=== PATIENT | female | born 1940 | race Caucasian/White ===

== ENCOUNTER 2016-06-13 16:23 | Inpatient (IN) | payer OTHER ==
[~2016-06-13] VITALS: Ht 144.8 cm; Wt 63.5 kg
[~2016-06-13 16:23] MED LIST: ALENDRONATE SOD70 M2 PO; ALENDRONATE SOD70 MG PO; CALCIUM + D 6001 TAB PO; CALCIUM 600600 M1 PO; CALTRATE 600 +1 EACH PO; CENTRUM COMPLE1 EACH PO; CHOLESTYRAMINE P4 GM PO; CHOLESTYRAMINE1 POW PO; CLOBETASOL PROP15 GM TOP; COUMADIN 2.5 M2.5 MG PO; ECONAZOLE NITRA15 GM TOP; ESCITALOPRAM OX10 MG PO; FIBERCON625 M1 PO; FIBERCON625 MG PO; HEP-FORTE1 CAP PO; LEVOTHYROXIN0.025 MG PO; LEVOTHYROXINE0.15 MG PO; LEVOTHYROXINE150 MCG PO; LEXAPRO 10MG10 MG PO; OMEPRAZOLE40 M1 PO; PERCOCET 325 MG1 TA2 PO; PRILOSEC 20MG C20 MG PO; PRILOSEC20 MG PO; SARNA TOP; SIMVASTATIN20 MG PO; SPECTAZOLE0.1 %/15 G TOP; VITAMIN D1000 IU PO; ZYRTEC ALLERGY10 MG PO
--- NOTE | 2016-06-13 16:43 | NUR ---
TRIAGE: PT TO ER WITH DAUGHTER, SENT BY DR YOUNG S/P FALL YESTERDAY. PER DR YOUNG PATIENT CAN'T BE MANAGED AT HOME ANY LONGER SHE IS NON-AMBULATORY. DAUGHTER REPORTS PATIENT FELL YESTERDAY WHEN WALKING OUT OF FRONT DOOR, LOST HER BALANCE AND FELL BACKWARDS. HAS HEMATOMA ON R BUTTOCK (PER DAUGHTER). PT HAS SLING TO RT ARM R/T FALL 6 WEEKS AGO.
--- NOTE | 2016-06-13 16:43 | NUR ---
Informed waiting has been performed.
--- NOTE | 2016-06-13 17:20 | ED MVC/FALL/TRAUMA COMPLAINT ---
History of Present Illness General Chief Complaint: Fall Stated Complaint: FALL YESTERDAY,HEMATOMA BUTTOCKS,WEAKNESS Source: patient, family Exam Limitations: no limitations Allergies Coded Allergies: amoxicillin (Mild, RASH 06/13/16) clarithromycin (From BIAXIN) (Mild, RASH 06/13/16) urokinase (Mild, RASH 06/13/16) Reconcile Medications Alendronate Sodium 70 MG TABLET 1 TAB PO QMON OP (Reported) in the morning, at least 30 minutes before the first food, beverage, or medication of the day Calcium Carbonate/Vitamin D3 (Caltrate 600 + D Tablet) 600 MG-800 TABLET 1 TAB PO DAILY SUPPLEMENT (Reported) Calcium Polycarbophil (Fibercon) 625 MG TABLET 625 MG PO D FIBER SUPPLEMENT ( Reported) Cholestyramine (With Sugar) (Cholestyramine Packet) 4 GRAM POWD.PACK 1 Scoopful PO BID LIVER-BILE DUCT (Reported) Clobetasol Propionate 0.05 % CREAM..G. 1 JACQUI TOP D ECZEMA (Reported) apply to affected area(s) Econazole (Econazole Nitrate) 1 % CREAM..G. 1 JACQUI TOP BID ECZEMA (Reported) apply to affected area(s) Escitalopram Oxalate 10 MG TABLET 1 TAB PO DAILY DEPRESSION (Reported) Levothyroxine Sodium 150 MCG TABLET 1 TAB PO DAILY THYROID (Reported) Multivitamin/Iron/Folic Acid (Centrum Complete Multivit Tab) 18 MG IRON-400 MCG TABLET 1 TAB PO D SUPPLEMEMT (Reported) Omeprazole 40 MG CAPSULE. 1 CAP PO DAILY GERD (Reported) Oxycodone HCl 5 MG TABLET 1 TAB PO 4XDAILY PRN PAIN (Reported) Simvastatin (Simvastatin*) 20 MG TABLET 1 TAB PO QPM HLD (Reported) Triage Note: TRIAGE: PT TO ER WITH DAUGHTER, SENT BY DR YOUNG S/P FALL YESTERDAY. PER DR YOUNG PATIENT CAN'T BE MANAGED AT HOME ANY LONGER SHE IS NON-AMBULATORY. DAUGHTER REPORTS PATIENT FELL YESTERDAY WHEN WALKING OUT OF FRONT DOOR, LOST HER BALANCE AND FELL BACKWARDS. HAS HEMATOMA ON R BUTTOCK (PER DAUGHTER). PT HAS SLING TO RT ARM R/T FALL 6 WEEKS AGO. Triage Nurses Notes Reviewed? yes HPI: 76 yo female, sp fall yesterday, mechanical fall due to weakness. she was seen at [facility] yesterday due to the fall. CT scan of "whole body" was negative per daughter except for hematoma. states she is weak and falls. had another fall this am getting out of the bed after getting dizzy when standing. hx of syncope in the past, has healing fx of the elbow, syncoped 2 week ago after taking sling off for evaluation of the arm by PT. appetite is poor. no fever, no flu like illness. seen by PCP and was sent to the ER for further evaluation and possible admission as pt is unable to care for herself. she lives in the same house as her daughter. no nv, no cp, no palpitations. (MIC DANGELO) Vital Signs & Intake/Output Vital Signs & Intake/Output Vital Signs Date Time Temp Pulse Resp B/P Pulse O2 O2 Flow FiO2 Ox Delivery Rate 06/17 0835 98.0 73 20 152/80 97 Room Air 06/16 2200 98.0 72 20 120/80 95 Room Air 06/16 1555 97.4 73 16 138/64 97 Room Air ED Intake and Output 06/17 0000 06/16 1200 Intake Total 480 1575 Output Total 600 Balance 480 975 Intake, IV 1375 Intake, Oral 480 200 Number 1 Bowel Movements Output, Urine 600 Past History Travel History Traveled to [place] past 21 day No Medical History Any Pertinent Medical History? see below for history Neurological: NONE EENT: NONE Cardiovascular: hyperlipidemia Respiratory: asthma, pneumonia Gastrointestinal: GERD Hepatic: NONE Renal: NONE Musculoskeletal: osteoporosis Psychiatric: depression Endocrine: hypothyroidism Blood Disorders: NONE Cancer(s): NONE WELFARE ADVISER/Reproductive: NONE History of MRSA: No History of VRE: Yes History of CDIFF: No Surgical History Surgical History: cholecystectomy, knee replacement (B) Psychosocial History Who do you live with Spouse Services at Home None What is your primary language Spanish Tobacco Use: Never used ETOH Use: denies use Illicit Drug Use: denies illicit drug use Family History Hx Contributory? No (MIC DANGELO) Review of Systems Review of Systems Constitutional: Reports: see HPI. Eyes: Reports: no symptoms. Ears, Nose, Throat, Mouth: Reports: no symptoms. Respiratory: Reports: no symptoms. Cardiovascular: Reports: no symptoms. Gastrointestinal/Abdominal: Reports: no symptoms. Genitourinary: Reports: no symptoms. Musculoskeletal: Reports: see HPI. Skin: Reports: no symptoms. Neurological/Psychological: Reports: see HPI. All Other Systems: Reviewed and Negative (MIC DANGELO) Physical Exam Physical Exam General Appearance: well developed/nourished Comments: Well-developed well-nourished person in no acute distress HEENT: Normal EENT exam, extraocular motion intact, no nystagmus. Pupils equally round and reactive to light and accommodation. Nose is atraumatic. Pharynx normal. No swelling or edema. Neck: Supple, no lymphadenopathy, normal range of motion without pain or tenderness Back: Well-healed midline surgical scar, moderate hematoma and swelling noted to the right lateral posterior pelvic region with tenderness in the area., no CVA tenderness. Cardiovascular: Regular rate and rhythms no murmurs rubs or gallops, normal JVP Respiratory: Chest nontender. No respiratory distress.breath sounds clear to auscultation bilaterally Abdomen: Soft, nontender nondistended, no appreciable organomegaly. Normal bowel sounds. No ascites Extremity: No edema, no calf tenderness to palpation, normal and equal pulses. Well-healed surgical scars from total knee arthroplasty without any signs of trauma or injury range of motion is full bilateral hips knees and ankles, neurovascularly intact Neuro: Alert oriented x3, motor sensory normal, cranial nerves II through XII grossly intact. Skin: No appreciable rash on exposed skin, skin is warm and dry. Psych: Mood and affect is normal, memory and judgment is normal. Core Measures ACS in differential dx? Yes Severe Sepsis Present: No BC x2: Yes Lactic Acid x2: Yes IV ABX Broad Spectrum: Yes NS/LR Started: Yes Septic Shock Present: No (MIC DANGELO) Progress Differential Diagnosis: aoritic dissection, abd injury, C/T/L spine injury, ext injury, ICH, pelvis injury, pnemothorax, spinal cord injury, hepatitis, sepsis, hepatic ischemia, Tylenol overdose, medication reaction Diagnostic Imaging: Viewed by Me: Radiology Read, CT Scan. Discussed w/RAD: Radiology Read, CT Scan. Radiology Impression: PATIENT: BOO OJINER PRESENT AGE: 76 PATIENT ACCOUNT NO: [id number] : 41 LOCATION: [facility] ORDERING PHYSICIAN: MIC NUNEZ SERVICE DATE: 06/13/16 EXAM TYPE: CAT - CT ABD & PELVIS W IV CONTRAST EXAMINATION: CT ABDOMEN AND PELVIS WITH CONTRAST CLINICAL INFORMATION: Elevated LFTs. Amylase. Lipase. History of cholecystectomy. Concern for cholangitis or a mass COMPARISON: CT abdomen pelvis 02/06/2007. Images and report were not available for review. TECHNIQUE: Multidetector volumetric imaging was performed of the abdomen and pelvis after the IV administration of 95 mL of Optiray 320 intravenous contrast. Sagittal and coronal reformatted images were obtained on the technologist's workstation. DLP: 338.64 mGy-cm. FINDINGS: LUNG BASES: The visualized lung bases are unremarkable. LIVER, GALLBLADDER, AND BILIARY TREE: There is a tiny hypodensity in the inferior right lobe liver statistically likely small hepatic cyst. No suspicious liver lesion. No intrahepatic bile duct dilatation. Gallbladder is absent. No bile duct dilatation. PANCREAS: Unremarkable. SPLEEN: Unremarkable. ADRENAL GLANDS: Unremarkable. KIDNEYS AND URETERS: There is a UPJ obstruction of the left kidney. Marked dilatation of the calyces and the renal pelvis with an extra renal pelvis. No dilatation of the ureter. Right kidney and ureter are normal. BLADDER: Opacified with contrast. No filling defect. GASTROINTESTINAL TRACT: There is a small mesenteric twist of approximately 180 degrees the right anterior mesentery, axial image 35 (2). This does not cause obstruction of the bowel. There is no dilated bowel loops. No bowel wall thickening or edema. There is marked diverticulosis of the sigmoid colon but no evidence of diverticulitis. The appendix is not seen. No inflammation of mesentery. There is a small hiatal hernia present. ABDOMINAL WALL: No significant hernia is appreciated. LYMPH NODES: Normal. VASCULAR: Unremarkable. PELVIC VISCERA: Uterus is anteverted. No adnexal abnormality. OSSEOUS STRUCTURES: Transpedicular screws fusion L4-L5. Multilevel degenerative change of the spine with disc height narrowing and endplate spurs and degenerative facet joint arthrosis. Orthopedic pins in the left femur IMPRESSION: 1. No acute change of the abdomen or pelvis. Gallbladder absent. No bile duct dilatation. Pancreas is unremarkable. 2. Left UPJ obstruction. DICTATED BY: JULIANE PEREZ MD DATE/TIME DICTATED:06/13/162029 POLICE CAPTAIN PRECINCT:FRANCES DATE/TIME TRANSCRIBED:06/13/16 CXR Impression: no acute abnormality Comments: PT TOO WEAK TO STAND, COULD NOT PERFORM ORTHOSTATICS. Patient's blood pressure noted to be 85 systolic, she is given IV fluids, septic workup started. 06/13/2016 6:15:41 PM reevaluation patient's complaining of bilateral knee pain after being moved from the wheelchair into the bed, she cannot have this pain upon initial presentation. Reevaluation of the lower extremities reveals well- healed midline scars from total knee replacements bilaterally without any swelling or erythema, warmth and tenderness on exam and no effusion no ecchymosis no signs of trauma, range of motion is full in the past. She will be given 15 mg of Toradol IV and 650 mg of Tylenol. Blood pressure has improved significantly after 1 L of IV fluid, we'll continue fluids Laboratory values show significant elevated LFTs, amylase lipase was added on, hepatitis panel was added on, INR was added on, also noted to have white count of 12,000, suspect cholangitis however on reevaluation patient has no abdominal tenderness at all, no abdominal pain and has had a cholecystectomy in the past. Will CT scan her abdomen and pelvis, possible biliary duct obstruction from mass or infectious cause. Treated with Rocephin and Flagyl IV for possible intra- abdominal infection. She continues to have bilateral knee pain which only started after she was moved into the bed and did not have pain while she was in a wheelchair upon my first evaluation, she was given 3 mg of IV morphine. CT scan is unremarkable, discussed with Dr. King, recommend continuing antibiotics and he will consult in the morning if medicine wishes, recommend admission, IV fluids, follow blood cultures and results of hepatitis panel. (MIC DANGELO) Plan of Care: Orders Procedure Date/time Status PROTHROMBIN TIME 06/18 0600 Active HEPATIC FUNCTION PANEL 06/18 06 Active BASIC ELECTROLYTES PLUS BUN&CR 06/18 0600 Active Heart Healthy Diet 06/17 L Active PROTHROMBIN TIME 06/17 0600 Complete HEPATIC FUNCTION PANEL 06/17 0600 Complete BASIC ELECTROLYTES PLUS BUN&CR 06/17 0600 Complete RAPID VIRAL INFLUENZA A 06/16 1537 Complete Current Medications Sig/Isela Start time Last Medication Dose Stop Time Status Admin Alendronate Sodium 70 MG QMON 06/19 0700 AC (Fosamax) Guaifenesin 10 ML Q6P PRN 06/17 1400 AC (Robitussin) Laboratory Tests 06/17/16 0655: Anion Gap 7, Estimated GFR > 60, BUN/Creatinine Ratio 26.0 H, Total Bilirubin 0.6, Direct Bilirubin 0.4, AST 19, ALT 202 H, Alkaline Phosphatase 113, Total Protein 4.1 L, Albumin 1.9 L, PT 12.3, INR 1.17 Departure Departure Disposition: STILL A PATIENT Condition: Stable Clinical Impression Primary Impression: Liver failure Secondary Impressions: Generalized weakness Hypotension Knee pain Leukocytosis Qualifiers: Leukocytosis type: unspecified Qualified Code: D72.829 - Elevated white blood cell count, unspecified Obstruction of left ureteropelvic junction (UPJ) Pancreatitis Qualifiers: Chronicity: acute Pancreatitis type: other Acute pancreatitis complication: unspecified Qualified Code: K85.80 - Other acute pancreatitis without necrosis or infection Transaminitis Referrals: PARTH YOUNG MD (PCP/Family) Departure Forms: Customer Survey General Discharge Information Admission Note Spoke With: ANGEL ZULUAGA MD Documentation of Exam: Documentation of any treatments & extenuating circumstances including Concerns Regarding Discharge (functional status, medication knowledge or non-compliance, living conditions, etc.) that warrant an admission rather than observation: Significantly elevated LFTs of unknown cause, hypotension, possible sepsis, requires GI consultation IV fluids IV antibiotics and monitor blood pressure and blood cultures (CANDICE NUNEZ,MIC) PA/RADAR MECHANIC Co-Sign Statement Statement: ED Attending supervision documentation- [X] I saw and evaluated the patient. I have also reviewed all the pertinent lab results and diagnostic results. I agree with the findings and the plan of care as documented in the PA's/RADAR MECHANIC's documentation. [] I have reviewed the ED Record and agree with the PA's/RADAR MECHANIC's documentation. [] Additions or exceptions (if any) to the PAs/RADAR MECHANIC's note and plan are summarized below: [] (NICOLASA REAGAN,JAMIE Fox)
--- NOTE | 2016-06-13 18:05 | NUR ---
IV ESTABLISHED AND NS RUNNING. LABS DRAWN AND SENT (BLUE, SST X2, LAV, SNOW, PINK, BLOOD CULTURES).
[2016-06-13 18:17] LABS: ABSOLUTE BASOPHIL COUNT 0 /CUMM (0.0-0.2); ABSOLUTE EOSINOPHIL COUNT 0.1 /CUMM (0.0-0.7); ABSOLUTE LYMPH COUNT 0.1 /CUMM (1.2-3.4); ABSOLUTE MONOCYTE COUNT 0.2 /CUMM (0.10-0.60); BASOPHIL % 0 % (0.0-2.0); EOSINOPHIL % 0.8 % (0-5); HEMATOCRIT 37.6 % (37-47); MEAN CORPUSCULAR HGB 28.2 PG (27.0-31.0); MEAN CORPUSCULAR HGB CONC 32.9 G/DL (33.0-37.0); MEAN CORPUSCULAR VOLUME 85.7 FL (81.0-99.0); PLATELET COUNT 207 /CUMM (130-400); RBC DISTRIBUTION WIDTH 15.2 % (11.5-14.5); RED BLOOD CELL CT 4.39 /CUMM (4.20-5.40); WHITE BLOOD CELL COUNT 12.4 /CUMM (4.8-10.8)
--- NOTE | 2016-06-13 18:22 | RADIOLOGY REPORT ---
EXAMINATION: XR PORTABLE CHEST CLINICAL INFORMATION: Sepsis. Weakness. COMPARISON: Chest x-ray 11/15/2015 TECHNIQUE: Portable view of the chest was obtained. 6:03 PM FINDINGS: Hyperinflation of lungs. No acute infiltrate. No pulmonary vascular congestion or pleural effusion. Cardiac and mediastinal contours are normal.. IMPRESSION: No acute abnormality of the chest.
--- NOTE | 2016-06-13 18:45 | NUR ---
MEDICATED WITH TYLENOL AND TORADOL 15MG PER eMAR. ICE PACKS APPLIED FOR COMFORT
[2016-06-13 18:51] LABS: GRANULOCYTE % 96.7 % (42.2-75.2)
[2016-06-13] MEDS ORDERED: OXYCODONE HCL5 M1 PO (18:55)
--- NOTE | 2016-06-13 19:16 | NUR ---
ENRIQUE HARVEY AT BEDSIDE TO DISCUSS PLAN. MEDICATED WITH ROCEPHIN PER e[facility] AND SECOND NS IVF BOLUS RUNNING. BP IMPROVED. WILL HAVE CT SCAN. PT REPORTS HAVING GALLBLADDER REMOVED
--- NOTE | 2016-06-13 20:37 | NUR ---
AWAITING CT RESULTS FOR PLAN OF CARE. CONTINUED PAIN TO BILAT KNEES AND R SHOULDER DESPITE REPOSITIONING. MEDICATED WITH MORPHINE PER [facility]. STATES SHE TOOK OXYCODONE TABLET RX EARLY THIS AM. PRICE CONT TO RUN PER e[facility]
[2016-06-13 20:39] LABS: PT 12.9 SEC (9.4-12.5); PTT 29 SEC (25-37)
--- NOTE | 2016-06-13 20:43 | CT SCAN REPORT ---
EXAMINATION: CT ABDOMEN AND PELVIS WITH CONTRAST CLINICAL INFORMATION: Elevated LFTs. Amylase. Lipase. History of cholecystectomy. Concern for cholangitis or a mass COMPARISON: CT abdomen pelvis 02/06/2007. Images and report were not available for review. TECHNIQUE: Multidetector volumetric imaging was performed of the abdomen and pelvis after the IV administration of 95 mL of Optiray 320 intravenous contrast. Sagittal and coronal reformatted images were obtained on the technologist's workstation. DLP: 338.64 mGy-cm. FINDINGS: LUNG BASES: The visualized lung bases are unremarkable. LIVER, GALLBLADDER, AND BILIARY TREE: There is a tiny hypodensity in the inferior right lobe liver statistically likely small hepatic cyst. No suspicious liver lesion. No intrahepatic bile duct dilatation. Gallbladder is absent. No bile duct dilatation. PANCREAS: Unremarkable. SPLEEN: Unremarkable. ADRENAL GLANDS: Unremarkable. KIDNEYS AND URETERS: There is a UPJ obstruction of the left kidney. Marked dilatation of the calyces and the renal pelvis with an extra renal pelvis. No dilatation of the ureter. Right kidney and ureter are normal. BLADDER: Opacified with contrast. No filling defect. GASTROINTESTINAL TRACT: There is a small mesenteric twist of approximately 180 degrees the right anterior mesentery, axial image 35 (2). This does not cause obstruction of the bowel. There is no dilated bowel loops. No bowel wall thickening or edema. There is marked diverticulosis of the sigmoid colon but no evidence of diverticulitis. The appendix is not seen. No inflammation of mesentery. There is a small hiatal hernia present. ABDOMINAL WALL: No significant hernia is appreciated. LYMPH NODES: Normal. VASCULAR: Unremarkable. PELVIC VISCERA: Uterus is anteverted. No adnexal abnormality. OSSEOUS STRUCTURES: Transpedicular screws fusion L4-L5. Multilevel degenerative change of the spine with disc height narrowing and endplate spurs and degenerative facet joint arthrosis. Orthopedic pins in the left femur IMPRESSION: 1. No acute change of the abdomen or pelvis. Gallbladder absent. No bile duct dilatation. Pancreas is unremarkable. 2. Left UPJ obstruction.
--- NOTE | 2016-06-13 22:00 | NUR ---
PT ON CONTACT PRECAUTIONS FOR VRE IN 2007 AND CDIFF IN 2005
--- NOTE | 2016-06-13 22:02 | NUR ---
PT REPORTS MUCH RELIEF FROM REPOSITIONING INTO WHEELCHAIR. MINIMAL RELIEF WITH ADMINISTRATION OF MORPHINE
--- NOTE | 2016-06-13 22:22 | History & Physical ---
STEPH BEASLEY MD 06/13/162: General Information and HPI MD Statement: I have seen and personally examined BOO JOINER and documented this H&P. The patient is a 76 year old F who presented with a patient stated chief complaint of [recurrent falls]. Source of Information: patient, family Exam Limitations: no limitations History of Present Illness: 76-year-old female with PMH of osteoporosis, HLD, hypothyroidism, depression, presented for referral by her PCP, Dr. Young, for evaluation of recurrent fall and possible STR placement. She was in her normal state of health until 6 weeks ago when she fell and injured her right elbow. It was splinted and she has been following up with Dr. Aguirre. The splint was removed 2 weeks ago by the visiting nurse, and the pt had a syncopal episode that lasted 5 seconds. She was evaluated at [place] ED at that time. Her right arm currently still in a sling. Over the past few days, she has had more difficulty walking due to leg pain and stiffness. Yesterday, on her way out of the house, she lost her balance and fell on backwards on the step, for which she was evaluated at [facility] because [place] was on diversion. The only significant finding was hematoma of the right buttock. She had a burning sensation, lump, and bruise on the area. This morning, her legs were feeling weak and stiff when she tried to get out of bed onto the commote, and she fell again. She attributes the fall due to bilateral knee pain (has had bilateral knee surgeries, and leg stiffness). She went to see her PCP, Dr. Young, and was then brought to the ED for possible STR placement. Of note, prior to the fall 6 weeks ago, she ambulates with a cane. Because she has been feeling unsteady since the right elbow injury, she now mainly ambulates with a wheelchair. In the ED, she was noted to be hypotensive at 84/51, for which her BP responded well to 2 L of NS. Her labs were found to be abnormal in the ED including AST 1649, ALT 1777, Alk phos 266, amylase 124, lipase 664. Pt has been feeling thirsty today, and has had poor PO intake since yesterday due to the doctor appointments/hospital visits. Pt had cholecystectomy in 2006. She denies abdominal pain, nausea, vomiting, diarrhea, or constipation. GI was consulted by the ED and recommended further evaluation with MRCP. On ROS, she reports feeling fatigued. She received her flu vaccine but not her PNA vaccine. She reports intermittent numbness on the right side of her neck.She denies fever, chills, nasal congestion, sore throat, chest pain, palpitations, shortness of breath, cough. She does have chronic bilateral leg swelling due to venous insufficiency. Denies hx of congestive heart failure. She lives at home with her , and 2 dogs. Her daughter lives downstairs. Denies sick contacts or recent travels. She reports right shoulder pain, but it is not acute , it has been there since she injured her right elbow. She denies new meds, other than ibuprofen and oxycodone over the last few weeks. Denies excessive alcohol use. Allergies/Medications Allergies: Coded Allergies: amoxicillin (Mild, RASH 06/13/16) clarithromycin (From BIAXIN) (Mild, RASH 06/13/16) urokinase (Mild, RASH 06/13/16) Home Med list Alendronate Sodium 70 MG TABLET 1 TAB PO QMON OP (Reported) in the morning, at least 30 minutes before the first food, beverage, or medication of the day Calcium Carbonate/Vitamin D3 (Caltrate 600 + D Tablet) 600 MG-800 TABLET 1 TAB PO DAILY SUPPLEMENT (Reported) Calcium Polycarbophil (Fibercon) 625 MG TABLET 625 MG PO D FIBER SUPPLEMENT ( Reported) Cholestyramine (With Sugar) (Cholestyramine Packet) 4 GRAM POWD.PACK 1 Scoopful PO BID LIVER-BILE DUCT (Reported) Clobetasol Propionate 0.05 % CREAM..G. 1 JACQUI TOP D ECZEMA (Reported) apply to affected area(s) Econazole (Econazole Nitrate) 1 % CREAM..G. 1 JACQUI TOP BID ECZEMA (Reported) apply to affected area(s) Escitalopram Oxalate 10 MG TABLET 1 TAB PO DAILY DEPRESSION (Reported) Levothyroxine Sodium 150 MCG TABLET 1 TAB PO DAILY THYROID (Reported) Multivitamin/Iron/Folic Acid (Centrum Complete Multivit Tab) 18 MG IRON-400 MCG TABLET 1 TAB PO D SUPPLEMEMT (Reported) Omeprazole 40 MG CAPSULE.DR 1 CAP PO DAILY GERD (Reported) Oxycodone HCl 5 MG TABLET 1 TAB PO 4XDAILY PRN PAIN (Reported) Simvastatin (Simvastatin*) 20 MG TABLET 1 TAB PO QPM HLD (Reported) Past History Travel History Traveled to [place] past 21 day No Medical History Neurological: NONE EENT: NONE Cardiovascular: hyperlipidemia Respiratory: asthma, pneumonia Gastrointestinal: GERD Hepatic: NONE Renal: NONE Musculoskeletal: osteoporosis Psychiatric: depression Endocrine: hypothyroidism Blood Disorders: NONE Cancer(s): NONE CASE HARDENER/Reproductive: NONE History of MRSA: No History of VRE: Yes Active VRE Infection: No History of CDIFF: Yes Active CDIFF Infection: No Isolation History: Special Contact (Enteric) Surgical History Surgical History: cholecystectomy, knee replacement (B) Past Family/Social History Psychosocial History Where do you live? Home Who Do You Live With? spouse Services at Home: Nursing, Physical Therapy Primary Language: Japanese Smoking Status: Never Smoked ETOH Use: denies use Illicit Drug Use: denies illicit drug use Functional Ability Ambulation: wheelchair Review of Systems Review of Systems Constitutional: Reports: malaise. Denies: chills, fever. EENTM: Denies: visual changes. Cardiovascular: Reports: peripheral edema. Denies: chest pain, orthopena, palpitations. Respiratory: Denies: cough, orthopnea, short of breath. GI: Denies: abdominal pain, bloating, constipation, diarrhea, nausea, bloody stool, changes in stool, vomiting. Genitourinary: Denies: discharge, dysuria. Musculoskeletal: Denies: back pain. Exam & Diagnostic Data Last 24 Hrs of Vital Signs/I&O Vital Signs Date Time Temp Pulse Resp B/P Pulse O2 O2 Flow FiO2 Ox Delivery Rate 06/13 2034 98.0 101 16 125/58 95 Room Air 06/13 1908 Room Air 06/13 1908 100 16 116/58 97 Room Air 06/13 1832 98.2 06/13 1639 98.2 100 20 84/51 94 Room Air Physical Exam General Appearance Alert, Oriented X3, Cooperative, No Acute Distress, sitting comfortably on the wheelchair , hard of hearing Skin No Rashes, No Breakdown, bruise on her right butt not evaluated HEENT Atraumatic, PERRLA, EOMI, dry mucous membranes Neck No JVD, +2 Carotid Pulse wo Bruit Lymphatic Axillary nl, Cervical nl Cardiovascular Regular Rate, Normal S1, Normal S2, No Murmurs, Gallops, Rubs Lungs Clear to Auscultation, Normal Air Movement Abdomen Normal Bowel Sounds, Soft, No Tenderness Neurological Normal Speech, strength 3/5 bilateral lower extremities. pain on both knees with passing hip flexion. Extremities Normal Pulses, bilateral edema, non pitting Vascular Normal Pulses, Pulses Symmetrical Last 24 Hrs of Labs/Juan: Laboratory Tests 06/13/16 1800: Anion Gap 12, Estimated GFR > 60, BUN/Creatinine Ratio 32.2 H, Glucose 122 H, Lactic Acid 1.6, Calcium 9.4, Magnesium 1.7, Total Bilirubin 1.8 H, Direct Bilirubin 0.7 H, GGT 147 H, AST 1649 H, ALT 1777 H, Alkaline Phosphatase 266 H, Creatine Kinase 400 H, Troponin I < 0.01, Total Protein 6.5, Albumin 3.6, Globulin 2.9, Albumin/Globulin Ratio 1.2, Amylase 124 H, Lipase 664 H, Vitamin B12 Pending, 25-OH Vitamin D Total Pending, TSH Pending, Free T4 Pending, PT 12.9 H, INR 1.23 H, APTT 29, CBC w Diff Pending, RBC 4.39, MCV 85.7, MCH 28.2, RDW 15.2 H, MPV 9.0, Gran % 96.7 H, Lymphocytes % 1.1 L, Monocytes % 1.4 L, Eosinophils % 0.8, Basophils % 0 L, Absolute Granulocytes 12.0 H, Absolute Lymphocytes 0.1 L, Absolute Monocytes 0.2, Absolute Eosinophils 0.1, Absolute Basophils 0, PUBS MCHC 32.9 L, Hepatitis A IgM Ab Pending, Hep Bs Antigen Pending, Hep B Core IgM Ab Conf Pending, Hepatitis C Antibody Pending, Acetaminophen < 10.0 L Microbiology 06/13 1845 BLOOD: Blood Culture - RECD 06/13 1800 BLOOD: Blood Culture - RECD 06/13 1724 URINE ROUT: Urine Culture - ORD Diagnostic Data EKG Results EKG SR rate 98 CXR Results No acute abnormality of the chest. Other Results CT abd and pelvis with contrast 1. No acute change of the abdomen or pelvis. Gallbladder absent. No bile duct dilatation. Pancreas is unremarkable. 2. Left UPJ obstruction. Assessment/Plan Assessment: 76-year-old female with PMH of osteoporosis, HLD, hypothyroidism, depression, presented for referral by her PCP, Dr. Young, for evaluation of recurrent fall and possible STR placement. In the ED, she was noted to be hypotensive at 84/51, for which her BP responded well to 2 L of NS. Her labs were found to be abnormal in the ED including AST 1649, ALT 1777, Alk phos 266, GGT 147, amylase 124, lipase 664. Although she denies any symptoms, and she had cholecystectomy [place] [address] was negative for stones, the hypotension is worrisome for impending acute cholangitis. She is admitted to and the following problems addressed: # Transaminitis, elevated lipase and amylase, hypotension, worrisome for impending acute cholangitis. Most likely cause is shock liver from hypotension on ED presentation. - Given 1 time ceftriaxone and flagyl in the ED - 2 L NS given in the ED - LA 1.6 * MRCP tomorrow * Follow BC X 2, UC * Continue ceftriaxone and flagyl * Continue IVF * NPO for MRCP * Dont give tylenol for pain * Closely monitor her anion gap for sepsis * Hold statin # Left UPJ obstruction on CT scan * Urology consult * Follow UA and UC * Follow renal US # Dehydration - BUN 29H, cr 0.9 * Continue IVF # Recurrent falls * PT evaluation * Follow Vit b12, vit d * Continue ashwin/vit D * Continue multivitamin/iron/folate * Continue oxycodone 5 mg q6p * HOLD ibuprofen for pain * No tylenol for pain # Hypothyroidism * Follow TSH, FT4 * Continue levothyroxine 150 mcg # HLD * Continue cholestyramine 4 gm bid * hold statin # Depression * Continue escitalopram 10 mg # Osteoporosis * Continue alendronate 70 q mon # Skin * Continue clobetasol for vaginal * Continue econazole for under breasts and inner thighs # GI * Continue omeprazole 40 daily Diet: NPO DVT ppx: mech. no pharm in case pt has to go for procedure FULL CODE As Ranked By This Provider Problem List: 1. Transaminitis 2. Pancreatitis Qualifiers Chronicity: acute Pancreatitis type: other Acute pancreatitis complication: unspecified Qualified Code: K85.80 - Other acute pancreatitis without necrosis or infection 3. Recurrent falls Core Measures/Miscellaneous Acute Coronary Syndrome ACS Diagnosis: No Cerebrovascular Accident CVA/TIA Diagnosis: No Congestive Heart Failure CHF Diagnosis: No Venous Thromboembolism VTE Risk Factors: Acute medical illness, Age > 40 VTE Prophylaxis Ordered Inpt: Mechanical (ALPS/TEDS) No Mech VTE prophylaxis d/t: No contraindications No VTE Pharm Prophylaxis d/t: Surgical contraindication VTE Diagnosis: No VTE Type: NONE VTE Confirmed by (Test): NONE Severe Sepsis Severe Sepsis Present: No Septic Shock Septic Shock Present: No Miscellaneous Documentation Attending Case Discussed With: AZN REAGAN,ANGEL Primary Care Physician: PARTH YOUNG MD Patient sees these Specialists Dr Gonzales endocrinology Level of Patient Care: General Medicine HELDER MARTINEZ 06/14/16 0006: Resident Review Statement Resident Statement: examined this patient, discussed with intern retail, agreed with intern retail, reviewed EMR data (avail), reviewed images, amended to note Other Findings: This is 76-year-old female with past medical history of hyperlipidemia, GERD, hypothyroidism, depression, osteoporosis. Patient presented to the emergency department after being referred by her PCP due to multiple falls. Patient stated that the first Fall 6 weeks ago when she fell and injured her right elbow , It was splinted and she has been following up orthopedic. She states the splint was removed around 2 weeks ago. Yesterday she had episode of syncopal episode that last 5-10 second patient was referred [facility] due to right buttock hematoma. CT scan was done and did not show any acute pathological process. 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 Patient patient reported decreased urine output, feeling urgency to go to the bathroom but there is no urine coming out comparing with the feeling. She denies fever, chills, nasal congestion, sore throat, chest pain, palpitations, shortness of breath, cough, abdominal pain, nausea, vomiting, diarrhea. Problem list: -Transaminitis with elevated lipase and Amylase that could be due to gallstone versus cholangitis. -Left UPJ obstruction, that need further evaluation to rule out any internal/ external renal causes. -Multiple mechanical falls -Generalized weakness, difficulty ambulation -Leukocytosis, Abnormal urine analysis. Plan: -Admit patient to general medicine floor -Vitals every shift, I&Os -Continue IV ceftriaxone and IV Flagyl -Keep the patient nothing by mouth for MRCP -Gastroenterology consultation -Start the patient on normal saline IV fluid hydration @ 125/h -Repeat hepatic functional panel, INR in the morning -Check TSH, free T4, vitamin B12, hepatitis panel, GGT. -Follow urine culture, blood culture -Renal ultrasound, urology consultation -Hold home medication of statin, avoid Tylenol, NSAIDs -Physical therapy consultation for possible placement -Pain pathway -DVT prophylaxis: Alps -Full code ZAN REAGAN, [facility] 06/14/16 0037: Attending MD Review Statement Attending Statement Attending MD Statement: examined this patient, discuss w/resident/PA/STAFF PSYCHOLOGIST, agreed w/resident/PA/STAFF PSYCHOLOGIST, discussed with family Attending Assessment/Plan: 76 yo F with h/o hypothyroidism, HLD, depression, asthma/ILD, benign left lung surgery, DJD, OA s/p b/l knee arthroplasty, is sent in for progressive weakness, LE pain and mechanical fall. She reports a fall 6 weeks ago resulting in comminuted intra-articular fracture of distal humerus, being managed with splint and pain management with Ibuprofen (200 mg Q4 and oxycodone 5 mg Q6) per Dr. Aguirre. About 2 weeks ago, she was seen in ER for vasovagal syncope during physical therapy. She had another fall yesterday, and was evaluated at [facility], CT was negative except for a hematoma to the right buttock. She fell again this morning as she felt weak and had difficulty ambulating. She denies lightheadedness, CP, dyspnea, N/V, diarrhea or abdominal pain. She reports decreased urinary output and dark urine, but no dysuria or hematuria. Vitals: on ER arrival, BP was 84/51, orthostats not checked as patient was unable to stand, BP responded to fluids --> 116/58. Afebrile, tachycardic to 100 's, sats 97% RA. Labs: WBC 12.4, INR 1.23, BUN 29, T. bili 1.8, D. bili 0.7, AST 1649, ALT 1777, Alk phos 266, GGT 147, LFTs were normal on May 31. CK 400, trop neg, amylase 124, lipase 664, lactic acid normal, tylenol level <10, UA small leukocyte esterase, WBC 15-25. CXR neg. CT abd/pelvis with contrast: small hepatic cyst, no biliary dilatation, left UPJ obstruction. EKG: SR. 1. Transaminitis/ acute liver failure (although no encephalopathy and INR < 1.5) of unclear etiology. Underlying sepsis and shock liver 2/2 hypotension is possible. She is s/p cholecystectomy in 2006. No e/o biliary dilatation on imaging. Will need to obtain MRCP to rule out choledocholithiasis. Will panculture and empirically cover for cholangitis with Ceftriaxone and flagyl given patient was hypotensive and has leukocytosis, though she remains afebrile. Only new meds include ibuprofen and oxycodone. Denies excessive use of tylenol. Hepatitis panel is pending. No alcohol use. She does not have pancreatitis. Will keep her NPO, give IV fluids and GI consult (Dr. King aware). Hold statins. 2. CT evidence of left UPJ obstruction ?acute vs. chronic. Patient's daughter reports that CT at [facility] reported a cyst in her left kidney, although our radiologist reports it as obstruction, no stones or mass identified, no hydroureter. UA is mildly positive. Will obtain urine culture, renal ultrasound and Urologist input in AM. 3. Progressive weakness, recurrent falls secondary to physical deconditioning, need to rule out sepsis/ infection as the underlying cause. Will also check B12, TSH, free T4, vit D levels. Obtain PT eval and eventual placement. DVT ppx Alps. Full code.
--- NOTE | 2016-06-13 22:30 | NUR ---
HOUSE STAFF IN ROOM FOR EVALUATION. HOSPITAL BED BEING PREPARED FOR COMFORT
[2016-06-13] MEDS ORDERED: SIMVASTATIN20 M2 PO (23:12)
--- NOTE | 2016-06-13 23:37 | NUR ---
FLAGYL ORDER TIMES BEING CHANGED BY PHARMACY D/T ORDER TOO SOON (LAST ADMINISTERED 2009, ORDERED AGAIN AT 0000, WILL BE CHANGED TO 0400).
--- NOTE | 2016-06-13 23:44 | NUR ---
NS INFUSING AT 125ML/HR PER EMAR. TOLERATING WELL.
[2016-06-13 23:50] VITALS: BP 92/54
--- NOTE | 2016-06-14 00:38 | Admission Certification ---
Admission Certification Certification Statement - As attending physician, I certify that at the time of - admission, based on clinical presentation, severity of - symptoms, need for further diagnostic testing and - therapeutic interventions, and risk of adverse outcomes - without in-hospital treatment, in my clinical assessment, - this patient requires an acute hospital stay for a minimum - of two nights or longer. I have also considered psychsocial - factors such as support system, advanced age, financial - issues, cognitive issues, and failed out-patient treatments, - past re-admission history, safety of patient, and lack of - compliance as applicable. Specific rationale supporting this admission is: Transaminitis/ acute liver failure needs GI evaluation. Obstructive uropathy needs Urology eval. Weakness, physical deconditioning requires PT eval and possible placements.
--- NOTE | 2016-06-14 00:38 | NUR ---
URINE TRIO OBTAINED SENT TO THE LAB
--- NOTE | 2016-06-14 02:00 | NUR ---
NAZIA INITIATED AND MARITO.
--- NOTE | 2016-06-14 03:30 | NUR ---
PATIENT REPORTING PAIN 10/10. SPOKE W/ HOUSE STAFF REGARDING PAIN MED PRN ORDER WHICH INDICATES TO GIVE ROXICODONE IF PAIN 4-6 ON PAIN SCALE. NO ADDITIONAL PAIN PRN ORDERS. HOUSE STAFF AWARE PAIN LEVEL IS 10. AWAITING CHANGE TO ORDER.
--- NOTE | 2016-06-14 04:00 | NUR ---
PHARMACY PAGED FOR FLAGYL ORDER.
--- NOTE | 2016-06-14 04:22 | NUR ---
SPOKE W/ HOUSE STAFF AGAIN REGARDING MED ORDER THAT READS ROXICODONE FOR PAIN 4-6 ONLY, PATIENT PAIN REMAINS 10/ 10 DESPITE REPOSITIONING. PER HOUSE STAFF, ORDER CHANGED NOW TO REFLECT PAIN 4-10. PATIENT MEDICATED W/ ROXICODONE PER EMAR. TOLERATED WELL.
--- NOTE | 2016-06-14 04:22 | NUR ---
PATIENT NS 125ML/HR STOPPED AT THIS TIME D/T FLAGYL INFUSING AT 100ML/HR PER EMAR. TOLERATING WELL. WILL REINITIATE NS 125ML/HR WHEN FLAGYL COMPLETE.
--- NOTE | 2016-06-14 06:23 | PN- Housestaff ---
AIRAM REAGAN,XAVIER 06/14/16 0622: Subjective Follow-up For: Transaminitis Hypotension Recurrent falls Syncopal episodes Possible cholangitis Subjective: Patient seen and examined at bedside. Resting comfortably in bed. She endorses bilateral knee pain which is chronic for her. No new complaints otherwise. No events reported overnight. Denies f/c/c/d/n/v, abdominal pain, chest pain, palpitation, dyspnea. Review of Systems Constitutional: Reports: see HPI. Objective Last 24 Hrs of Vital Signs/I&O Vital Signs Date Time Temp Pulse Resp B/P Pulse O2 O2 Flow FiO2 Ox Delivery Rate 06/14 1254 Room Air 06/14 1220 101.6 100 18 109/53 100 Room Air 06/14 1217 101.6 100 18 109/53 92 Room Air 06/14 0919 100.4 110 18 100/51 93 Room Air 06/14 0845 101.0 06/14 0741 101.4 06/14 0726 101.4 06/14 0700 100.9 111 18 108/51 92 Room Air 06/14 0632 100.9 111 20 108/51 92 Room Air 06/14 0330 105 18 110/55 93 Room Air 06/13 2350 98.4 104 18 92/54 96 Room Air 06/13 2035 98.0 101 16 125/58 95 Room Air 06/13 1909 Room Air 06/13 1909 100 16 116/58 97 Room Air 06/13 1832 98.2 06/13 1639 98.2 100 20 84/51 94 Room Air Intake & Output 06/14 1600 06/14 0800 06/14 0000 Intake Total Output Total 250 Balance -250 Output, Urine 250 Patient 63.503 kg 58.967 kg Weight Physical Exam General Appearance: Alert, Oriented X3, Cooperative, No Acute Distress Other Physical Findings: Skin No Rashes, No Breakdown, bruise on her right butt not evaluated HEENT Atraumatic, PERRLA, EOMI, dry mucous membranes Neck No JVD, +2 Carotid Pulse wo Bruit Lymphatic Axillary nl, Cervical nl Cardiovascular Regular Rate, Normal S1, Normal S2, No Murmurs, Gallops, Rubs Lungs Clear to Auscultation, Normal Air Movement Abdomen Normal Bowel Sounds, Soft, No Tenderness Neurological Normal Speech, strength 3/5 bilateral lower extremities. pain on both knees with passing hip flexion. Extremities Normal Pulses, bilateral edema, non pitting Vascular Normal Pulses, Pulses Symmetrical Current Medications: Current Medications Sig/Isela Start time Last Medication Dose Route Stop Time Status Admin Acetaminophen 0 .STK-MED ONE 06/14 0731 DC PO Acetaminophen 650 MG ONCE ONE 06/14 0730 DC 06/14 PO 06/14 07 0741 Acetaminophen 0 .STK-MED ONE 06/13 1833 DC PO Acetaminophen 650 MG ONCE ONE 06/13 1815 DC 06/13 PO 06/13 181 183 Alendronate Sodium 70 MG QMON 06/19 0700 AC PO Ceftriaxone Sodium 1,000 MG DAILY 06/14 1000 AC 06/14 IV 1000 Ceftriaxone Sodium 1,000 MG ONCE ONE 06/13 1914 DC 06/13 IV 06/13 Ceftriaxone Sodium 0 .STK-MED ONE 06/13 1910 DC .ROUTE Escitalopram Oxalate 10 MG DAILY 06/14 1000 AC 06/14 PO 1000 Ketorolac 0 .STK-MED ONE 06/13 1833 DC Tromethamine .ROUTE Ketorolac 15 MG ONCE ONE 06/13 181 DC 06/13 Tromethamine IV 06/13 1815 183 Levothyroxine Sodium 0.15 MG DAILY AC 06/14 0700 AC 06/14 PO 0716 Metronidazole 500 MG Q8H 06/14 0400 AC 06/14 N/A 1 UNIT IV 1200 Metronidazole 500 MG ONCE ONE 06/13 1914 DC 06/13 N/A 1 UNIT IV 06/13 Morphine Sulfate 0 .STK-MED ONE 06/13 2031 DC .ROUTE Morphine Sulfate 3 MG ONCE ONE 06/13 2029 DC 06/13 IV 06/13 Oxycodone HCl 0 .STK-MED ONE 06/14 0411 DC PO Oxycodone HCl 5 MG Q6-PRN PRN 06/13 2315 AC 06/14 PO 0422 Sodium Chloride 1,000 ML .Q8H 06/13 2230 AC 06/13 IV 2344 Sodium Chloride 1,000 ML BOLUS ONE 06/13 1914 DC 06/13 IV 06/13 Sodium Chloride 1,000 ML BOLUS ONE 06/13 1730 DC 06/13 IV 06/13 1829 1805 Last 24 Hrs of Lab/Juan Results Last 24 Hrs of Labs/Mics: Laboratory Tests 06/14/16 1130: Anion Gap 13, Estimated GFR > 60, BUN/Creatinine Ratio 38.6 H, Total Bilirubin 1.0, Direct Bilirubin 0.6 H, AST 404 H, ALT 745 H, Alkaline Phosphatase 202 H, Total Protein 4.7 L, Albumin 2.4 L, PT 21.7 H, INR 2.08 H, CBC w Diff MAN DIFF ORDERED, RBC 3.75 L, MCV 85.1, MCH 28.4, RDW 15.0 H, MPV 8.7, Gran % 95.9 H, Lymphocytes % 1.3 L, Monocytes % 1.1 L, Eosinophils % 1.7, Basophils % 0 L, Absolute Granulocytes 11.7 H, Segmented Neutrophils 84 H, Band Neutrophils 11 H, Absolute Lymphocytes 0.2 L, Monocytes 2, Absolute Monocytes 0.1 L, Eosinophils 3, Absolute Eosinophils 0.2, Absolute Basophils 0, Platelet Estimate VERIFIED BY SMEAR, Normocytic RBCs VERIFIED, Normochromic RBCs VERIFIED, PUBS MCHC 33.4 06/14/16 0031: Urinalysis LIGHT H, Urine Color YEL, Urine Clarity CLEAR, Urine pH 6.0, Ur Specific [place] <= 1.005, Urine Protein 30 H, Urine Ketones NEG, Urine Nitrite NEG, Urine Bilirubin NEG, Urine Urobilinogen 1.0, Ur Leukocyte Esterase SMALL H , Ur Microscopic SEDIMENT EXAMINED, Urine RBC RARE, Urine WBC 15-25 H, Ur Epithelial Cells FEW, Hyaline Casts RARE H, Urine Mucus RARE, Urine Hemoglobin TRACE-LYSED, Urine Glucose NEG 06/13/162023: Lactic Acid Cancelled 06/13/16 1800: Anion Gap 12, Estimated GFR > 60, BUN/Creatinine Ratio 32.2 H, Glucose 122 H, Lactic Acid 1.6, Calcium 9.4, Magnesium 1.7, Total Bilirubin 1.8 H, Direct Bilirubin 0.7 H, GGT 147 H, AST 1649 H, ALT 1777 H, Alkaline Phosphatase 266 H, Creatine Kinase 400 H, Troponin I < 0.01, Total Protein 6.5, Albumin 3.6, Globulin 2.9, Albumin/Globulin Ratio 1.2, Amylase 124 H, Lipase 664 H, Vitamin B12 915, 25-OH Vitamin D Total 21.5 L, TSH 0.217 L, Free T4 2.83 H, PT 12.9 H, INR 1.23 H, APTT 29, CBC w Diff Pending, RBC 4.39, MCV 85.7, MCH 28.2, RDW 15.2 H, MPV 9.0, Gran % 96.7 H, Lymphocytes % 1.1 L, Monocytes % 1.4 L, Eosinophils % 0.8, Basophils % 0 L, Absolute Granulocytes 12.0 H, Absolute Lymphocytes 0.1 L, Absolute Monocytes 0.2, Absolute Eosinophils 0.1, Absolute Basophils 0, PUBS MCHC 32.9 L, Hepatitis A IgM Ab NONREACTIVE, Hep Bs Antigen NONREACTIVE, Hep B Core IgM Ab Conf NONREACTIVE, Hepatitis C Antibody NONREACTIVE, Acetaminophen < 10.0 L Microbiology 06/14 0031 URINE ROUT: Urine Culture - RECD 06/13 1845 BLOOD: Blood Culture - RES 06/13 1800 BLOOD: Blood Culture - RES Assessment/Plan Assessment: 76-year-old female with PMH of osteoporosis, HLD, hypothyroidism, depression, presented for referral by her PCP, Dr. Khalil, for evaluation of recurrent fall and possible STR placement. In the ED, she was noted to be hypotensive at 84/51, for which her BP responded well to 2 L of NS. Her labs were found to be abnormal in the ED including AST 1649, ALT 1777, Alk phos 266, GGT 147, amylase 124, lipase 664. Although she denies any symptoms, and she had cholecystectomy [place] [address] was negative for stones, the hypotension is worrisome for impending acute cholangitis. She is admitted to and the following problems addressed: # Recurrent falls Patient gavino has had 4 falls recently, some of which were due to syncope. Thus she warrants further cardiac and neuro workup. * Tranfer to tele for close monitoring for arrythymia * Check echocardiogram * Consider neuro & cardiology consult * Follow PT evaluation * Follow Vit b12 - WNL * Continue ashwin/vit D - Vit D low * Continue multivitamin/iron/folate * Continue oxycodone 5 mg q6p * HOLD ibuprofen and Tylenol # Transaminitis, elevated lipase and amylase, hypotension, worrisome for impending acute cholangitis. Most likely cause is shock liver from hypotension on ED presentation. - Given 1 time ceftriaxone and flagyl in the ED - 2 L NS given in the ED - LA 1.6 * Follow MRCP * Follow BC X 2, UC * Continue ceftriaxone and flagyl emprically * Continue IVF * NPO for MRCP * Dont give tylenol for pain * Closely monitor her anion gap for sepsis * Hold statin # Left UPJ obstruction on CT scan * Urology consult - recommended outpatient follow up; however, previous records need to be obtained to confirm whether her hydronephrosis is acute or chronic. * Follow Ucx * Follow renal US - [id number] hydronephrosis of the left kidney and small, 3 mm calculus is seen in the expected location of the left ureterovesical junction. However, the left ureter is not dilated on the CT exam, which shows ureteropelvic junction obstruction. # Dehydration - BUN 29H, cr 0.9 on admission * Continue IVF # Hypothyroidism * Follow TSH, FT4 - T4 high, TSH low this admission * Consider endo consult * Continue levothyroxine 150 mcg # HLD * Continue cholestyramine 4 gm bid * hold statin # Depression * Continue escitalopram 10 mg # Osteoporosis * Continue alendronate 70 q mon # Skin * Continue clobetasol for vaginal * Continue econazole for under breasts and inner thighs # GI * Continue omeprazole 40 daily Diet: NPO DVT ppx: mech. no pharm in case pt has to go for procedure FULL CODE Problem List: 1. Syncope 2. Transaminitis 3. Pancreatitis 4. Hypotension 5. Leukocytosis 6. Generalized weakness 7. Knee pain 8. Liver failure 9. Recurrent falls 10. Fever Pain Ratin Pain Location: Knees Pain Goal: Remain pain free Pain Plan: Mild pathway Tomorrow's Labs & Rationales: As per telemetery team LE ROJAS MDKyler 06/14/16 1650: Attending MD Review Statement Attending Statement Attending MD Statement: examined this patient, discuss w/resident/PA/RIDING INSTRUCTOR, agreed w/resident/PA/RIDING INSTRUCTOR, discussed with family, reviewed EMR data (avail), discussed with nursing, amended to note Attending Assessment/Plan: Patient seen and examined. Lying comfortably in bed not in acute distress. Currently denies pain at present. Family was present at the bedside. She has had several falls prior to presentation. At least one episode appears to have been related to syncope. On evaluation in the ER her EKG noted flatted T waves in the lateral romero. Patient denies history of chest pain or shortness of breath. She denies palpitations. Her first troponin is negative. Following IV hydration she remains hemodynamically stable. High LFTs have improved significantly with her transaminases both down by over 1000 points each. Her MRCP shows no evidence of hepatobiliary disease. She denies dysuria. She denies flank pain. She does continue to be febrile with temperature 11.6 this afternoon. Her WBC remains mildly elevated. Her history does not suggest any infectious foci. On examination she is resting comfortably with her right arm in a sling. Heart sounds are regular with no audible murmur. Lungs are clear bilaterally. Abdomen is soft and nontender with normal bowel sounds. She has trace peripheral edema. Problems: 1. Fever. 2. Hypotension; probably hypovolemic. Improved with fluids in the ER. 3. Transaminitis; probably secondary to shock liver. 9 improving 4. Chronic left hydronephrosis 5. Recurrent falls 6. Episodes of syncope 7. Abnormal EKG 8. Chronic anemia 9. Abnormal TSH Plan: -Continue empiric antibiotic therapy with Rocephin following completed blood and urine culture report. -No acute pathology noted on MRCP. Okay to advance patient's diet. -If patient continues to spike fever recommend ID evaluation. -Obtain echocardiogram and monitor patient on telemetry due to her report of syncope and abnormal EKG. -Trend cardiac enzymes and consult cardiology service. -Continue IV fluids overnight and repeat serum chemistry and LFTs in the a.m. -Discontinue omeprazole and simvastatin as they are potentially hepatotoxic agents. -Physical therapy evaluation, she will likely require half-way facility placement once medically stable for discharge. -Repeat TSH in a.m. -DVT prophylaxis with subcutaneous heparin.
--- NOTE | 2016-06-14 06:37 | NUR ---
PATIENT DENIES ANY PAIN AT THIS TIME. VSS. PHARMACY AWARE OF MED ORDER FOR SYNTHROID FOR 0700.
--- NOTE | 2016-06-14 06:57 | NUR ---
IPOC CONTINUED AND UTD.
[2016-06-14 07:00] VITALS: BP 108/51
--- NOTE | 2016-06-14 07:17 | NUR ---
ASSUMED CARE OF PT AT THIS TIME. PT MEDICATED WITH SYNTHROID PER ORDER. PT ASSISTED ONTO BEDPAN AT THIS TIME. PT STATES SHE SLEPT OK LAST NIGHT AND DENIES ANY PAIN. PTS TEMP 100.9, PT FEELS VERY HOT TO THE TOUCH. HOUSE STAFF PAGED FOR ORDERS.
--- NOTE | 2016-06-14 07:41 | NUR ---
PT MEDICATED WITH 650MG TYLENOL PER ORDER AT THIS TIME.
--- NOTE | 2016-06-14 07:42 | Cons- Urology ---
See Addendum General Information and HPI Consulting Request Date of Consult: 06/14/16 Requested By: Heriberto Esparza MD,ANGEL Reason for Consult: L hydronephrosis Source of Information: patient, old records Exam Limitations: no limitations History of Present Illness: This patient presented to the ER after a couple of falls. In the ER her BP was low but responded to fluids. LFT's were elevated. CT scan of the abd and pelvis showed L hydronephrosis c/w chronic L UPJ obstruction. She has no flank pain and denies hematuria. Allergies/Medications Allergies: Coded Allergies: amoxicillin (Mild, RASH 06/13/16) clarithromycin (From BIAXIN) (Mild, RASH 06/13/16) urokinase (Mild, RASH 06/13/16) Home Med List: Alendronate Sodium 70 MG TABLET 1 TAB PO QMON OP (Reported) in the morning, at least 30 minutes before the first food, beverage, or medication of the day Calcium Carbonate/Vitamin D3 (Caltrate 600 + D Tablet) 600 MG-800 TABLET 1 TAB PO DAILY SUPPLEMENT (Reported) Calcium Polycarbophil (Fibercon) 625 MG TABLET 625 MG PO D FIBER SUPPLEMENT ( Reported) Cholestyramine (With Sugar) (Cholestyramine Packet) 4 GRAM POWD.PACK 1 Scoopful PO BID LIVER-BILE DUCT (Reported) Clobetasol Propionate 0.05 % CREAM..G. 1 JACQUI TOP D ECZEMA (Reported) apply to affected area(s) Econazole (Econazole Nitrate) 1 % CREAM..G. 1 JACQUI TOP BID ECZEMA (Reported) apply to affected area(s) Escitalopram Oxalate 10 MG TABLET 1 TAB PO DAILY DEPRESSION (Reported) Levothyroxine Sodium 150 MCG TABLET 1 TAB PO DAILY THYROID (Reported) Multivitamin/Iron/Folic Acid (Centrum Complete Multivit Tab) 18 MG IRON-400 MCG TABLET 1 TAB PO D SUPPLEMEMT (Reported) Omeprazole 40 MG CAPSULE.DR 1 CAP PO DAILY GERD (Reported) Oxycodone HCl 5 MG TABLET 1 TAB PO 4XDAILY PRN PAIN (Reported) Simvastatin (Simvastatin*) 20 MG TABLET 1 TAB PO QPM HLD (Reported) Current Medications: Current Medications Sig/Isela Start time Last Medication Dose Route Stop Time Status Admin Acetaminophen 0 .STK-MED ONE 06/14 730 DC PO Acetaminophen 650 MG ONCE ONE 01/11 0730 DC PO 06/14 0731 Acetaminophen 0 .STK-MED ONE 06/13 1833 DC PO Acetaminophen 650 MG ONCE ONE 06/13 1815 DC 06/13 PO 06/13 181 183 Alendronate Sodium 70 MG QMON 06/19 0700 AC PO Ceftriaxone Sodium 1,000 MG DAILY 06/14 1000 AC IV Ceftriaxone Sodium 1,000 MG ONCE ONE 06/13 1914 DC 06/13 IV 06/13 Ceftriaxone Sodium 0 .STK-MED ONE 06/13 191 DC .ROUTE Escitalopram Oxalate 10 MG DAILY 06/14 1000 AC PO Ketorolac 0 .STK-MED ONE 06/13 1833 DC Tromethamine .ROUTE Ketorolac 15 MG ONCE ONE 06/13 1815 DC 06/13 Tromethamine IV 06/13 1815 183 Levothyroxine Sodium 0.15 MG DAILY AC 06/14 0700 AC 06/14 PO 0716 Metronidazole 500 MG Q8H 06/14 0400 AC 06/14 N/A 1 UNIT IV 0422 Metronidazole 500 MG ONCE ONE 06/13 1914 DC 06/13 N/A 1 UNIT IV 06/13 Morphine Sulfate 0 .STK-MED ONE 06/13 2031 DC .ROUTE Morphine Sulfate 3 MG ONCE ONE 06/13 2030 DC 06/13 IV 06/13 Oxycodone HCl 0 .STK-MED ONE 06/14 0411 DC PO Oxycodone HCl 5 MG Q6-PRN PRN 06/13 2315 AC 06/14 PO 0422 Sodium Chloride 1,000 ML .Q8H 06/13 2230 AC 06/13 IV 2344 Sodium Chloride 1,000 ML BOLUS ONE 06/13 1914 DC 06/13 IV 06/13 Sodium Chloride 1,000 ML BOLUS ONE 06/13 1730 DC 06/13 IV 06/13 1829 1805 Past History Medical History Neurological: NONE EENT: NONE Cardiovascular: hyperlipidemia Respiratory: asthma, pneumonia Gastrointestinal: GERD Hepatic: NONE Renal: NONE Musculoskeletal: osteoporosis Psychiatric: depression Endocrine: hypothyroidism Blood Disorders: NONE Cancer(s): NONE SERVICE CORRESPONDENT/Reproductive: NONE Surgical History Pertinent Surgical History: cholecystectomy, knee replacement (B) Psychosocial History Where Do You Live? Home Who Do You Live With? spouse Services at Home: Nursing, Physical Therapy Primary Language: Khmer Smoking Status: Never Smoked ETOH Use: denies use Illicit Drug Use: denies illicit drug use Functional Ability Ambulation: wheelchair Exam & Diagnostic Data Vital Signs and I&O Vital Signs Date Time Temp Pulse Resp B/P Pulse O2 O2 Flow FiO2 Ox Delivery Rate 06/14 0726 101.4 06/14 0700 100.9 111 18 108/51 92 Room Air 06/14 0632 100.9 111 20 108/51 92 Room Air 06/14 0330 105 18 110/55 93 Room Air 06/13 2350 98.4 104 18 92/54 96 Room Air 06/13 2035 98.0 101 16 125/58 95 Room Air 06/13 1909 Room Air 06/13 1909 100 16 116/58 97 Room Air 06/13 1832 98.2 06/13 1639 98.2 100 20 84/51 94 Room Air Intake & Output 06/14 0800 06/14 0000 06/13 1600 06/13 0800 06/13 0000 06/12 1600 Intake Total Output Total 250 Balance -250 Output, Urine 250 Patient 140 lb 130 lb Weight Exam: Back: No CVA tenderness Abd: soft and non tender Laboratory Tests 06/14 Chemistry Lactic Acid Cancelled Urines Urinalysis LIGHT H Urine Color (YEL,AMB,STR) YEL Urine Clarity (CLEAR) CLEAR Urine pH (5.0 - 8.0) 6.0 Ur Specific [place] (1.001 - 1.035) <= 1.005 Urine Protein (NEG,<30 MG/DL) 30 H Urine Ketones (NEG) NEG Urine Nitrite (NEG) NEG Urine Bilirubin (NEG) NEG Urine Urobilinogen (0.1 - 1.0 EU/dl) 1.0 Ur Leukocyte Esterase (NEG) SMALL H Ur Microscopic SEDIMENT EXAMINED Urine RBC (0 - 5 /HPF) RARE Urine WBC (0 - 2 /HPF) 15-25 H Ur Epithelial Cells (NONE,FEW) FEW Hyaline Casts (0/LPF) RARE H Urine Mucus (FEW,NONE) RARE Urine Hemoglobin (NEG) TRACE-LYSED Urine Glucose (N MG/DL) NEG 06/13 1800 Chemistry Sodium (137 - 145 mmol/L) 134 L Potassium (3.5 - 5.1 mmol/L) 4.7 Chloride (98 - 107 mmol/L) 96 L Carbon Dioxide (22 - 30 mmol/L) 25 Anion Gap (5 - 16) 12 BUN (7 - 17 mg/dL) 29 H Creatinine (0.5 - 1.0 mg/dL) 0.9 Estimated GFR (>60 ml/min) > 60 BUN/Creatinine Ratio (7 - 25 %) 32.2 H Glucose (65 - 99 mg/dL) 122 H Lactic Acid (0.7 - 2.1 mmol/L) 1.6 Calcium (8.4 - 10.2 mg/dL) 9.4 Magnesium (1.6 - 2.3 mg/dL) 1.7 Total Bilirubin (0.2 - 1.3 mg/dL) 1.8 H Direct Bilirubin (< 0.4 mg/dL) 0.7 H GGT (12 - 43 U/L) 147 H AST (14 - 36 U/L) 1649 H ALT (9 - 52 U/L) 1777 H Alkaline Phosphatase (<127 U/L) 266 H Creatine Kinase (30 - 135 U/L) 400 H Troponin I (< 0.11 ng/ml) < 0.01 Total Protein (6.3 - 8.2 g/dL) 6.5 Albumin (3.5 - 5.0 g/dL) 3.6 Globulin (1.9 - 4.2 gm/dL) 2.9 Albumin/Globulin Ratio (1.1 - 2.2 %) 1.2 Amylase (30 - 110 U/L) 124 H Lipase (23 - 300 U/L) 664 H Vitamin B12 (239 - 931 pg/mL) 915 25-OH Vitamin D Total (30 - 100 ng/ml) 21.5 L TSH (0.270 - 4.200 uIU/mL) 0.217 L Free T4 (0.78 - 2.44 ng/dL) 2.83 H Coagulation PT (9.4 - 12.5 SEC) 12.9 H INR (0.90 - 1.19) 1.23 H APTT (25 - 37 SEC) 29 Hematology CBC w Diff Pending WBC (4.8 - 10.8 /CUMM) 12.4 H RBC (4.20 - 5.40 /CUMM) 4.39 Hgb (12.0 - 16.0 G/DL) 12.4 Hct (37 - 47 %) 37.6 MCV (81.0 - 99.0 FL) 85.7 MCH (27.0 - 31.0 PG) 28.2 RDW (11.5 - 14.5 %) 15.2 H Plt Count (130 - 400 /CUMM) 207 MPV (7.4 - 10.4 FL) 9.0 Gran % (42.2 - 75.2 %) 96.7 H Lymphocytes % (20.5 - 51.1 %) 1.1 L Monocytes % (1.7 - 9.3 %) 1.4 L Eosinophils % (0 - 5 %) 0.8 Basophils % (0.0 - 2.0 %) 0 L Absolute Granulocytes (1.4 - 6.5 /CUMM) 12.0 H Absolute Lymphocytes (1.2 - 3.4 /CUMM) 0.1 L Absolute Monocytes (0.10 - 0.60 /CUMM) 0.2 Absolute Eosinophils (0.0 - 0.7 /CUMM) 0.1 Absolute Basophils (0.0 - 0.2 /CUMM) 0 PUBS MCHC (33.0 - 37.0 G/DL) 32.9 L Serology Hepatitis A IgM Ab (NONREACTIVE) Pending Hep Bs Antigen (NONREACTIVE) Pending Hep B Core IgM Ab Conf (NONREACTIVE) Pending Hepatitis C Antibody (NONREACTIVE) Pending Toxicology Acetaminophen (10.0 - 30.0 ug/mL) < 10.[address] scan reviewed and finding c/w chronic L UPJ obstruction. Compared to a CT of 2007 this is unchnaged Assessment/Plan Assessment/Plan Imp: L hydronephrosis due to chronic L UPJ obstruction, unchanged compared to 2007 Plan: No urologic intervention needed Urine C&S and if UTI treat accordingly Consult Acknowledgment - Thank you for your consult request.
--- NOTE | 2016-06-14 08:06 | Cons- Gastroenterology ---
General Information and HPI Consulting Request Date of Consult: 06/14/16 Requested By: NAREN ROJAS M.D Reason for Consult: Elevated LFTs, predominantly transaminitis, and mild elevation of lipase. Source of Information: patient, family (pt's Boni/dtr Terell), old records Exam Limitations: fair historian History of Present Illness: 76-year-old female, fair historian, followed by numerous physicians, including Dr. Khalil for primary care, Dr. Lizarraga for surgery, Dr. Flores for pulmonary, Dr. Urrutia for cardiothoracic surgery, Dr. Rodriguez for OUTSOLE BEVELER, Dr. Fuentes for orthopedics , and Dr. Dunlap for urology, with numerous issues, including hyperlipidemia, DJD, asthma, interstitial lung disease, benign left lung surgery, PA, depression , hypothyroidism, osteoporosis, bilateral total knee replacement, ORIF left hip, lumbar spine fusion, history of colon adenomas, positive family history of colon cancer (patient's mother- onset 70's 77), chronic post cholecystectomy loose stools since gallbladder surgery 05/22/2006, stable on Questran 4g b.i.d. (not t.i.d., as per the patient), stable symptoms of reflux on Prilosec 20 mg daily, diverticulosis coli, chronic anemia, plus paraesophageal hernia repair with mesh placement and Socorro fundoplication 01/24/2007. She also had a subsequent incisional hernia repair plus correction of small bowel obstruction. She has had numerous GI testing done. 11/21/2005: Combined EGD and colonoscopy- large hiatal hernia, minimal esophagitis on biopsies, without Alanis's esophagus, HP-negative gastritis, small bowel biopsy- normal villi with extensive diverticulosis coli and normal colonic mucosa. 04/09/2006: tTG antibody- negative, antigliadin antibody- negative. I am not certain if a total serum IgA level was sent. 10/18/2006: CT scan of the chest without contrast- large hiatal hernia with questionable food in hiatal hernia pouch, obstruction versus mucosal mass. 11/29/2006: Barium swallow/upper GI series- large paraesophageal hiatal hernia with increased reflux, without obstruction. 12/27/2006: EGD with biopsies- minimal distal esophagitis with benign squamous mucosa and minimal reactive change on biopsies. Large paraesophageal hiatal hernia from 30-39 cm, without obstruction. Biopsy of hiatal hernia pouch showing mild gastritis, H. pylori- negative. 01/24/2007- Laparoscopic hiatal hernia repair with mesh placement and Socorro fundoplication. 02/06/2007: Repair of incisional hernia and small bowel obstruction. 10/15/2007: H. pylori antibody- negative. 03/14/2011: Followup colonoscopy to the terminal ileum with random biopsies of the terminal ileum, right colon, left colon, and rectum- unremarkable, intraoperative stool workup- negative, extensive left sided diverticula, mild internal hemorrhoids, and removal of 6 mm benign rectal tubular adenoma. 05/25/2015: Colonoscopy to cecum- 1. Extensive pandiverticulosis coli, left side greater than right. 2. Normal colonic mucosa to the cecum, without any recurrent polyps. (*Add high-fiber diet plus FiberCon 2 tabs daily. With past personal history of colon adenomas and positive family history of colon cancer, advise follow-up surveillance colonoscopy with the pediatric colonoscope in 5 years (i.e.- 2019). *The patient was subsequently found to have PA- 06/30/2015: IgA 121, tTG Ab- neg, DGP Ab- neg, nl SPEP/IPEP, elevated MMA 3900, B12 < 159, Fe 96, TIBC 323, Fe sat 29.7%, ferritin 92.5. 07/26/2015: + anti-IF Ab, +anti-PC Ab 61.4. The patient has had a history of recurrent falls, fracture of the right upper extremity 6 weeks APPEALS SPECIALIST. She has been seeing orthopedics for this. Her right arm is in a sling. She fell again on 06/12/2016 and developed a hematoma in her coccygeal region. She went to the [facility] ER 06/12/2016 to be evaluated for the above, was felt to be stable, and was sent home, where she lives with her , Boni, and her daughter, Alejandra. The patient fell again 2016, landing on her back. There was no apparent head trauma. She went her PMD , Dr. Khalil, 06/13/2016, and was sent to the [facility], where she arrived 06/13 at 4:23 p.m. Upon arrival, BP 84/51, P 100, R 20, T 98.2, O2 sat RA 94%. She subsequently spiked to 101.4. Her BP improved after IVF. She was suddenly found to have elevated transaminases (see below). Imaging studies did not show any acute GI process, however she had a left hydroureter, which was evaluated by urology and felt to be chronic in nature, without need for surgical intervention. The patient was empirically put on IV Ceftriaxone and Flagyl in the ER, and received Toradol, Tylenol, and morphine. *She was on outpatient Simvastatin, but this is old. Regards to the liver function tests, the patient denies any new medications except for Advil. She was only taking scant amounts of Tylenol with codeine, which have been stopped some time ago. She had been on Oxycodone, which was stopped as well. Her Tylenol level was negative. She denies any herbal medications or new medications otherwise. She denies a history of hepatitis, blood transfusions, IVDA, EtOH, or illicit drug use. She did have some subjective fevers, but no chills. She denied any symptoms of UTI or URI. There is no abdominal pain. She denies any nausea, vomiting, reflux, odynophagia, dysphagia, diarrhea, constipation, obstipation, rectal bleeding, melena, or hematemesis. She denies any confusion or increased abdominal girth. She has chronic pedal edema. She denies any jaundice, dark urine, light stools, pruritus , rashes or arthralgias. She had normal renal function on admission. There is no family history of inherited liver disease. There is a positive family history of colon cancer in the patient's mother, as above. She denied any chest pain, shortness breath, or LOC. She denied any abdominal trauma. *Note: 05/31/2016: normal LFTs 06/13/2016: BC x 2- pending. 06/14/2016: U/A- clear, yellow, < 1.005, pH 6.0, 15-25 WBC, moderate bacteria, 30+ protein, otherwise negative; negative nitrite, small esterase. 06/14/2016: UC- pending. 06/13/2016: Admission labs- WBC 12.4 (97% gran, 12 gran Ab), H/H 12.4/37.6, normal MCV, PLT 207, PT 0.9, INR 1.23, PTT 29, glucose 122, BUN/Cr 29/0.9, GFR > 60, rheumatoid 34, potassium 4.7, bicarbonate 25, AG 12, lactate 1.6, amylase/ lipase 124/664, Mg 1.7, calcium 9.4, albumin 3.6, globulin 2.9, TBil 1.8, DBil 0.7, alk phos 266 (fluctuates chronically), AST 1649, ALT 1777, *elevated GGT 147, CK 400, troponin < .01; *Hep A Ab, Hep Bs Ag, Hep B core Ab, Hep C Ab- all negative, low TSH 0.217, elevated FT4 2.83, [Tylenol] < 10, B12 915, low Vit D 21.5. 06/13/2016: EKG- NSR @ 98, nl axis, nl intervals, early transition, PRWP, NSST antlat 06/13/2016: CXR- NAD 06/13/2016: CT ABD & PELVIS W IV CONTRAST- 1. No acute change of the abdomen or pelvis. Gallbladder absent. No bile duct dilatation. Pancreas is unremarkable. No liver lesion except tiny right hepatic cyst. Small right anterior mesenteric twist, without obstruction. No mesenteritis. Small HH. AP not seen. Extensive sigmoid diverticulosis without diverticulitis. No abdominal wall hernia. Fusion L4/L5. DJD. Orthopedic pins left femur. 2. 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 Allergies/Medications Allergies: Coded Allergies: amoxicillin (Mild, RASH 06/13/16) clarithromycin (From BIAXIN) (Mild, RASH 06/13/16) urokinase (Mild, RASH 06/13/16) Home Med List: Alendronate Sodium 70 MG TABLET 1 TAB PO QMON OP (Reported) in the morning, at least 30 minutes before the first food, beverage, or medication of the day Calcium Carbonate/Vitamin D3 (Caltrate 600 + D Tablet) 600 MG-800 TABLET 1 TAB PO DAILY SUPPLEMENT (Reported) Calcium Polycarbophil (Fibercon) 625 MG TABLET 625 MG PO D FIBER SUPPLEMENT ( Reported) Cholestyramine (With Sugar) (Cholestyramine Packet) 4 GRAM POWD.PACK 1 Scoopful PO BID LIVER-BILE DUCT (Reported) Clobetasol Propionate 0.05 % CREAM..G. 1 JACQUI TOP D ECZEMA (Reported) apply to affected area(s) Econazole (Econazole Nitrate) 1 % CREAM..G. 1 JACQUI TOP BID ECZEMA (Reported) apply to affected area(s) Escitalopram Oxalate 10 MG TABLET 1 TAB PO DAILY DEPRESSION (Reported) Levothyroxine Sodium 150 MCG TABLET 1 TAB PO DAILY THYROID (Reported) Multivitamin/Iron/Folic Acid (Centrum Complete Multivit Tab) 18 MG IRON-400 MCG TABLET 1 TAB PO D SUPPLEMEMT (Reported) Omeprazole 40 MG CAPSULE.DR 1 CAP PO DAILY GERD (Reported) Oxycodone HCl 5 MG TABLET 1 TAB PO 4XDAILY PRN PAIN (Reported) Simvastatin (Simvastatin*) 20 MG TABLET 1 TAB PO QPM HLD (Reported) Past History Travel History Traveled to [place] past 21 day No Medical History Blood Transfusion Hx: No Neurological: NONE EENT: NONE Cardiovascular: hyperlipidemia Respiratory: asthma, pneumonia, ILD Gastrointestinal: GERD, hiatal hernia (repaired 01/24/07), diverticulosis coli, colon adenoma Hepatic: NONE Renal: NONE Musculoskeletal: degen joint disease, falls, osteoporosis, spinal stenosis ( lumbar) Psychiatric: depression Endocrine: hypothyroidism, osteoporosis Blood Disorders: NONE Cancer(s): NONE OUTSOLE BEVELER/Reproductive: NONE Surgical History Surgical History: cholecystectomy, hernia repair-incisional, knee replacement (B /L), laminectomy, spinal fusion (lumbar), Lung surgery, 01/24/07: HH repair with mesh & Socorro fundoplication, ORIF L hip Family History Relations & Conditions If Any: MOTHER (onset then). , Age 83; Cause: Colon cancer. FATHER (DM). , Age 79; Cause: Myocardial infarct. Psychosocial History Where Do You Live? Home Who Do You Live With? spouse (Geroge) Services at Home: Nursing, Physical Therapy Primary Language: Persian Smoking Status: Never Smoked ETOH Use: denies use Illicit Drug Use: denies illicit drug use Living Will? no Power of Automotive Welder/HCP? no Other Social History: . Lives with , Boni, & daughter, Alejandra. No cigarettes, EtOH, or drugs. Was independent until fx RUE post fall in 04/2016. Functional Ability ADLs Independent: dressing (until recent RUE fx), eating, toileting, bathing. Ambulation: independent (until recent fall APPEALS SPECIALIST) IADLs Independent: shopping (until recent fall APPEALS SPECIALIST), housework, finances, food prep, telephone, transportation, medication admin. 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 Review of Systems Constitutional: Reports: fever, weakness. Denies: chills, diaphoresis, malaise, unexplained weight loss. EENTM: Denies: blurred vision, double vision, visual changes, eye pain, eye drainage, eye tearing, icterus, ear discharge, ear pain, ear redness, hearing changes, nasal congestion, epistaxis, nasal pain, throat pain, throat swelling, mouth pain, tooth pain. Cardiovascular: Reports: edema, peripheral edema (chronic). Denies: chest pain, orthopena, palpitations, syncope. Respiratory: Denies: cough, hemoptysis, orthopnea, short of breath, sputum production, stridor, wheezing. GI: Denies: abdominal pain, bloating, constipation, diarrhea, distention, bowel incontinence, melena, nausea, bloody stool, changes in stool, vomiting, steatorrhea. Genitourinary: Denies: discharge, dysuria, frequency, hematuria, hesitation, nocturia, pain, urgency. Musculoskeletal: Reports: back pain (falls with coccygeal hematoma), joint pain (DJD), neck pain (chronic). Denies: gout, joint swelling, muscle pain, muscle stiffness. Skin: Reports: change in skin color (coccygeal hematoma post fall). Denies: cysts, change in hair/nails, dryness, erythema, jaundice, lesions, lymphangitis, lumps, moles, rash. Neurological/Psychological: Reports: depressed, emotional problems, weakness. Denies: anxiety, ataxia, cognitive dysfunction, confusion, dementia, headache, numbness, paresthesia, pre -existing deficit, petit mal seizures, tingling, tremors, tonic-clonic seizures, unable to move lower ext, unable to move upper ext. Hematologic/Endocrine: Reports: bruising (post mult falls). Denies: bleeding, polyuria, polydipsia. Immunologic/Allergic: Denies: splenectomy, HIV/AIDS, lymphadenopathy. All Other Systems: Reviewed and Negative Exam & Diagnostic Data Vital Signs and I&O Vital Signs Date Time Temp Pulse Resp B/P Pulse O2 O2 Flow FiO2 Ox Delivery Rate 06/14 0845 101.0 06/14 0741 101.4 06/14 0726 101.4 06/14 0700 100.9 111 18 108/51 92 Room Air 06/14 0632 100.9 111 20 108/51 92 Room Air 06/14 0330 105 18 110/55 93 Room Air 06/13 2350 98.4 104 18 92/54 96 Room Air 06/13 2035 98.0 101 16 125/58 95 Room Air 06/13 1909 Room Air 06/13 1909 100 16 116/58 97 Room Air 06/13 1832 98.2 06/13 1639 98.2 100 20 84/51 94 Room Air Intake & Output 06/14 1600 06/14 0400 06/13 1600 06/13 0400 06/12 1600 06/12 0400 Intake Total Output Total 250 Balance -250 Output, Urine 250 Patient 140 lb Weight Physical Exam: Well-developed, well-nourished, elderly female, in no apparent distress, feeling warm. Sclera anicteric. Conjunctiva pink. Oropharynx clear. No oral thrush. No apthous ulcers. There is no adenopathy, thyromegaly, or JVD. No peripheral stigmata of inflammatory bowel disease or chronic liver disease on exam. No spiders on the anterior chest wall. No CVA tenderness. Lungs: clear to A&P, with slight decreased BS at the bases B/L. Heart exam: regular rate rhythm, S1 and S2 without any murmur. Breast and pelvic exams: deferred for international trade analyst. Abdominal exam: normal bowel sounds, soft belly, nontender, without guarding or rebound. Post CCKY. No mass. No organomegaly. No fluid shift. No pulsatile mass. Digital rectal exam by myself 06/14/16: brown stool, OB negative, normal sphincter tone, no mass. Hematoma in coccygeal region. No decubitus ulcer. Multiple scars post LS spine surgery, B/L TKR. Extremities: without cyanosis or clubbing. > 1+ pedal edema B/L. No palpable cords. Distal pulses 2+ bilaterally. DTRs 2+ bilaterally. No Dupuytren's contracture. No palmar erythema. Alert and oriented x 3. No tremor. No asterixis. Results Pertinent Lab Results: Laboratory Tests 06/14 1130 Chemistry Sodium (137 - 145 mmol/L) 138 Potassium (3.5 - 5.1 mmol/L) 4.0 Chloride (98 - 107 mmol/L) 106 Carbon Dioxide (22 - 30 mmol/L) 19 L Anion Gap (5 - 16) 13 BUN (7 - 17 mg/dL) 27 H Creatinine (0.5 - 1.0 mg/dL) 0.7 Estimated GFR (>60 ml/min) > 60 BUN/Creatinine Ratio (7 - 25 %) 38.6 H Total Bilirubin (0.2 - 1.3 mg/dL) 1.0 Direct Bilirubin (< 0.4 mg/dL) 0.6 H AST (14 - 36 U/L) 404 H ALT (9 - 52 U/L) 745 H Alkaline Phosphatase (<127 U/L) 202 H Total Protein (6.3 - 8.2 g/dL) 4.7 L Albumin (3.5 - 5.0 g/dL) 2.4 L Coagulation PT (9.4 - 12.5 SEC) 21.7 H INR (0.90 - 1.19) 2.08 H Hematology CBC w Diff MAN DIFF ORDERED WBC (4.8 - 10.8 /CUMM) 12.2 H RBC (4.20 - 5.40 /CUMM) 3.75 L Hgb (12.0 - 16.0 G/DL) 10.7 L Hct (37 - 47 %) 31.9 L MCV (81.0 - 99.0 FL) 85.1 MCH (27.0 - 31.0 PG) 28.4 RDW (11.5 - 14.5 %) 15.0 H Plt Count (130 - 400 /CUMM) 152 MPV (7.4 - 10.4 FL) 8.7 Gran % (42.2 - 75.2 %) 95.9 H Lymphocytes % (20.5 - 51.1 %) 1.3 L Monocytes % (1.7 - 9.3 %) 1.1 L Eosinophils % (0 - 5 %) 1.7 Basophils % (0.0 - 2.0 %) 0 L Absolute Granulocytes (1.4 - 6.5 /CUMM) 11.7 H Segmented Neutrophils (42.2 - 75.2 %) 84 H Band Neutrophils (0.0 - 5.0 %) 11 H Absolute Lymphocytes (1.2 - 3.4 /CUMM) 0.2 L Monocytes (1.7 - 9.3 %) 2 Absolute Monocytes (0.10 - 0.60 /CUMM) 0.1 L Eosinophils (0 - 5.0 %) 3 Absolute Eosinophils (0.0 - 0.7 /CUMM) 0.2 Absolute Basophils (0.0 - 0.2 /CUMM) 0 Platelet Estimate (ADEQUATE) VERIFIED BY SMEAR Normocytic RBCs VERIFIED Normochromic RBCs VERIFIED PUBS MCHC (33.0 - 37.0 G/DL) 33.4 06/14 Chemistry Lactic Acid Cancelled Urines Urinalysis LIGHT H Urine Color (YEL,AMB,STR) YEL Urine Clarity (CLEAR) CLEAR Urine pH (5.0 - 8.0) 6.0 Ur Specific [place] (1.001 - 1.035) <= 1.005 Urine Protein (NEG,<30 MG/DL) 30 H Urine Ketones (NEG) NEG Urine Nitrite (NEG) NEG Urine Bilirubin (NEG) NEG Urine Urobilinogen (0.1 - 1.0 EU/dl) 1.0 Ur Leukocyte Esterase (NEG) SMALL H Ur Microscopic SEDIMENT EXAMINED Urine RBC (0 - 5 /HPF) RARE Urine WBC (0 - 2 /HPF) 15-25 H Ur Epithelial Cells (NONE,FEW) FEW Hyaline Casts (0/LPF) RARE H Urine Mucus (FEW,NONE) RARE Urine Hemoglobin (NEG) TRACE-LYSED Urine Glucose (N MG/DL) NEG 06/13 1800 Chemistry Sodium (137 - 145 mmol/L) 134 L Potassium (3.5 - 5.1 mmol/L) 4.7 Chloride (98 - 107 mmol/L) 96 L Carbon Dioxide (22 - 30 mmol/L) 25 Anion Gap (5 - 16) 12 BUN (7 - 17 mg/dL) 29 H Creatinine (0.5 - 1.0 mg/dL) 0.9 Estimated GFR (>60 ml/min) > 60 BUN/Creatinine Ratio (7 - 25 %) 32.2 H Glucose (65 - 99 mg/dL) 122 H Lactic Acid (0.7 - 2.1 mmol/L) 1.6 Calcium (8.4 - 10.2 mg/dL) 9.4 Magnesium (1.6 - 2.3 mg/dL) 1.7 Total Bilirubin (0.2 - 1.3 mg/dL) 1.8 H Direct Bilirubin (< 0.4 mg/dL) 0.7 H GGT (12 - 43 U/L) 147 H AST (14 - 36 U/L) 1649 H ALT (9 - 52 U/L) 1777 H Alkaline Phosphatase (<127 U/L) 266 H Creatine Kinase (30 - 135 U/L) 400 H Troponin I (< 0.11 ng/ml) < 0.01 Total Protein (6.3 - 8.2 g/dL) 6.5 Albumin (3.5 - 5.0 g/dL) 3.6 Globulin (1.9 - 4.2 gm/dL) 2.9 Albumin/Globulin Ratio (1.1 - 2.2 %) 1.2 Amylase (30 - 110 U/L) 124 H Lipase (23 - 300 U/L) 664 H Vitamin B12 (239 - 931 pg/mL) 915 25-OH Vitamin D Total (30 - 100 ng/ml) 21.5 L TSH (0.270 - 4.200 uIU/mL) 0.217 L Free T4 (0.78 - 2.44 ng/dL) 2.83 H Coagulation PT (9.4 - 12.5 SEC) 12.9 H INR (0.90 - 1.19) 1.23 H APTT (25 - 37 SEC) 29 Hematology CBC w Diff Pending WBC (4.8 - 10.8 /CUMM) 12.4 H RBC (4.20 - 5.40 /CUMM) 4.39 Hgb (12.0 - 16.0 G/DL) 12.4 Hct (37 - 47 %) 37.6 MCV (81.0 - 99.0 FL) 85.7 MCH (27.0 - 31.0 PG) 28.2 RDW (11.5 - 14.5 %) 15.2 H Plt Count (130 - 400 /CUMM) 207 MPV (7.4 - 10.4 FL) 9.0 Gran % (42.2 - 75.2 %) 96.7 H Lymphocytes % (20.5 - 51.1 %) 1.1 L Monocytes % (1.7 - 9.3 %) 1.4 L Eosinophils % (0 - 5 %) 0.8 Basophils % (0.0 - 2.0 %) 0 L Absolute Granulocytes (1.4 - 6.5 /CUMM) 12.0 H Absolute Lymphocytes (1.2 - 3.4 /CUMM) 0.1 L Absolute Monocytes (0.10 - 0.60 /CUMM) 0.2 Absolute Eosinophils (0.0 - 0.7 /CUMM) 0.1 Absolute Basophils (0.0 - 0.2 /CUMM) 0 PUBS MCHC (33.0 - 37.0 G/DL) 32.9 L Serology Hepatitis A IgM Ab (NONREACTIVE) NONREACTIVE Hep Bs Antigen (NONREACTIVE) NONREACTIVE Hep B Core IgM Ab Conf (NONREACTIVE) NONREACTIVE Hepatitis C Antibody (NONREACTIVE) NONREACTIVE Toxicology Acetaminophen (10.0 - 30.0 ug/mL) < 10.0 L Imaging/Other Studies: 06/13/2016: EKG- NSR @ 98, nl axis, nl intervals, early transition, PRWP, NSST antlat 06/13/2016: CXR- NAD 06/13/2016: CT ABD & PELVIS W IV CONTRAST- 1. No acute change of the abdomen or pelvis. Gallbladder absent. No bile duct dilatation. Pancreas is unremarkable. No liver lesion except tiny right hepatic cyst. Small right anterior mesenteric twist, without obstruction. No mesenteritis. Small HH. AP not seen. Extensive sigmoid diverticulosis without diverticulitis. No abdominal wall hernia. Fusion L4/L5. DJD. Orthopedic pins left femur. 2. 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 Assessment/Plan Assessment/Recommendations: 76-year-old female, fair historian, followed by numerous physicians, including Dr. Khalil for primary care, Dr. Lizarraga for surgery, Dr. Flores for pulmonary, Dr. Urrutia for cardiothoracic surgery, Dr. Rodriguez for OUTSOLE BEVELER, Dr. Fuentes for orthopedics , and Dr. Dunlap for urology, with numerous issues, including hyperlipidemia, DJD, asthma, interstitial lung disease, benign left lung surgery, PA, depression , hypothyroidism, osteoporosis, bilateral total knee replacement, ORIF left hip, lumbar spine fusion, history of colon adenomas, positive family history of colon cancer (patient's mother- onset 70's 77), chronic post cholecystectomy loose stools since gallbladder surgery 05/22/2006, stable on Questran 4g b.i.d. (not t.i.d., as per the patient), stable symptoms of reflux on Prilosec 20 mg daily, diverticulosis coli, chronic anemia, plus paraesophageal hernia repair with mesh placement and Socorro fundoplication 01/24/2007. She also had a subsequent incisional hernia repair plus correction of small bowel obstruction. She has had numerous GI testing done. 11/21/2005: Combined EGD and colonoscopy- large hiatal hernia, minimal esophagitis on biopsies, without Alanis's esophagus, HP-negative gastritis, small bowel biopsy- normal villi with extensive diverticulosis coli and normal colonic mucosa. 04/09/2006: tTG antibody- negative, antigliadin antibody- negative. I am not certain if a total serum IgA level was sent. 10/18/2006: CT scan of the chest without contrast- large hiatal hernia with questionable food in hiatal hernia pouch, obstruction versus mucosal mass. 11/29/2006: Barium swallow/upper GI series- large paraesophageal hiatal hernia with increased reflux, without obstruction. 12/27/2006: EGD with biopsies- minimal distal esophagitis with benign squamous mucosa and minimal reactive change on biopsies. Large paraesophageal hiatal hernia from 30-39 cm, without obstruction. Biopsy of hiatal hernia pouch showing mild gastritis, H. pylori- negative. 01/24/2007- Laparoscopic hiatal hernia repair with mesh placement and Socorro fundoplication. 02/06/2007: Repair of incisional hernia and small bowel obstruction. 10/15/2007: H. pylori antibody- negative. 03/14/2011: Followup colonoscopy to the terminal ileum with random biopsies of the terminal ileum, right colon, left colon, and rectum- unremarkable, intraoperative stool workup- negative, extensive left sided diverticula, mild internal hemorrhoids, and removal of 6 mm benign rectal tubular adenoma. 05/25/2015: Colonoscopy to cecum- 1. Extensive pandiverticulosis coli, left side greater than right. 2. Normal colonic mucosa to the cecum, without any recurrent polyps. (*Add high-fiber diet plus FiberCon 2 tabs daily. With past personal history of colon adenomas and positive family history of colon cancer, advise follow-up surveillance colonoscopy with the pediatric colonoscope in 5 years (i.e.- 2019). *The patient was subsequently found to have PA- 06/30/2015: IgA 121, tTG Ab- neg, DGP Ab- neg, nl SPEP/IPEP, elevated MMA 3900, B12 < 159, Fe 96, TIBC 323, Fe sat 29.7%, ferritin 92.5. 07/26/2015: + anti-IF Ab, +anti-PC Ab 61.4. The patient has had a history of recurrent falls, fracture of the right upper extremity 6 weeks APPEALS SPECIALIST. She has been seeing orthopedics for this. Her right arm is in a sling. She fell again on 06/12/2016 and developed a hematoma in her coccygeal region. She went to the [facility] ER 06/12/2016 to be evaluated for the above, was felt to be stable, and was sent home, where she lives with her , Boni, and her daughter, Alejandra. The patient fell again 2016, landing on her back. There was no apparent head trauma. She went her PMD , Dr. Khalil, 06/13/2016, and was sent to the [facility] ER, where she arrived 06/13 at 4:23 p.m. Upon arrival, BP 84/51, P 100, R 20, T 98.2, O2 sat RA 94%. She subsequently spiked to 101.4. Her BP improved after IVF. She was suddenly found to have elevated transaminases (see below). Imaging studies did not show any acute GI process, however she had a left hydroureter, which was evaluated by urology and felt to be chronic in nature, without need for surgical intervention. The patient was empirically put on IV Ceftriaxone and Flagyl in the ER, and received Toradol, Tylenol, and morphine. *She was on outpatient Simvastatin, but this is old. Regards to the liver function tests, the patient denies any new medications except for Advil. She was only taking scant amounts of Tylenol with codeine, which have been stopped some time ago. She had been on Oxycodone, which was stopped as well. Her Tylenol level was negative. She denies any herbal medications or new medications otherwise. She denies a history of hepatitis, blood transfusions, IVDA, EtOH, or illicit drug use. She did have some subjective fevers, but no chills. She denied any symptoms of UTI or URI. There is no abdominal pain. She denies any nausea, vomiting, reflux, odynophagia, dysphagia, diarrhea, constipation, obstipation, rectal bleeding, melena, or hematemesis. She denies any confusion or increased abdominal girth. She has chronic pedal edema. She denies any jaundice, dark urine, light stools, pruritus, rashes or arthralgias. She had normal renal function on admission. There is no family history of inherited liver disease. There is a positive family history of colon cancer in the patient's mother, as above. She denied any chest pain, shortness breath, or LOC. She denied any abdominal trauma. *Note: 05/31/2016: normal LFTs 06/13/2016: BC x 2- pending. 06/14/2016: U/A- clear, yellow, < 1.005, pH 6.0, 15-25 WBC, moderate bacteria, 30+ protein, otherwise negative; negative nitrite, small esterase. 06/14/2016: UC- pending. 06/13/2016: Admission labs- WBC 12.4 (97% gran, 12 gran Ab), H/H 12.4/37.6, normal MCV, PLT 207, PT 0.9, INR 1.23, PTT 29, glucose 122, BUN/Cr 29/0.9, GFR > 60, rheumatoid 34, potassium 4.7, bicarbonate 25, AG 12, lactate 1.6, amylase/ lipase 124/664, Mg 1.7, calcium 9.4, albumin 3.6, globulin 2.9, TBil 1.8, DBil 0.7, alk phos 266 (fluctuates chronically), AST 1649, ALT 1777, *elevated GGT 147, CK 400, troponin < .01; *Hep A Ab, Hep Bs Ag, Hep B core Ab, Hep C Ab- all negative, low TSH 0.217, elevated FT4 2.83, [Tylenol] < 10, B12 915, low Vit D 21.5. 06/13/2016: EKG- NSR @ 98, nl axis, nl intervals, early transition, PRWP, NSST antlat 06/13/2016: CXR- NAD 06/13/2016: CT ABD & PELVIS W IV CONTRAST- 1. No acute change of the abdomen or pelvis. Gallbladder absent. No bile duct dilatation. Pancreas is unremarkable. No liver lesion except tiny right hepatic cyst. Small right anterior mesenteric twist, without obstruction. No mesenteritis. Small HH. AP not seen. Extensive sigmoid diverticulosis without diverticulitis. No abdominal wall hernia. Fusion L4/L5. DJD. Orthopedic pins left femur. 2. 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 *It is difficult to tell at the moment whether the patient's LFTs are reactive in nature versus primary in nature. She was hypotensive. She certainly could have shock liver (ischemic hepatitis). She was febrile. The above hypotension could be reactive in nature to some non-GI source of sepsis. Having stated that , cholangitis should be excluded, although her LFTs are predominantly in a transaminitis pattern more so than an obstructive pattern. She is post-CCKY. There is a hematoma in the coccygeal region with multiple falls. Some of the transaminase elevation could be from skeletal muscle. Her CK is elevated with negative troponin. Admission CT abdomen and pelvis with IV contrast does not show any acute GI process. The left hydroureter is chronic in nature and felt not to need instrumentation, as per urology. There was no gross evidence of ischemic bowel on the admission CT, although it is possible she could develop bowel/mesenteric ischemia secondary to the hypotension, which has resolved. The lipase elevation is minimal. I do not think she has true pancreatitis. She has a benign abdominal exam. Her pancreas looks normal on the IV contrast CT. Hepatitis A, B, and C serologies are negative. Doubt EBV/CMV hepatitis, but possible. Doubt HV/PV thrombosis. Tylenol levels are negative. SUGGEST: NPO. IVF. Admit to hospitalist service. Panculture. *Agree with broad- spectrum antibiotics, currently on IV Ceftriaxone and Flagyl. *Advise RUQ sono & doppler of HV/PV. *Advise MRCP. *Serial LFTs and PT with INR (? shock liver). *Check EBV/CMV/Aldolase. As alkaline phosphatase appears to be intermittently chronically elevated with elevated GGT, consider checking HARSH/AMA. *Hold Simvastatin. *Consider checking urine for myoglobin (r/o rhabdomyolysis). Avoid hepatotoxins & NSAIDS. Keep Tylenol use to a minimum. May continue PPI. Can resume Questran when patient resumes po intake. Workup of falls & tx of mild hyper T4, etc., as per medical team. The above was discussed with the patient, her , Boni, & her daughter, Alejandra, in detail, as per patient request. As an aside, by dates, the patient is due for follow surveillance colonoscopy with the pediatric colonoscope in 05/2020, regarding her history of adenomas. Further recommendations to follow, depending on clinical course. Problem List: 1. Transaminitis 2. Hypotension 3. Fever 4. Leukocytosis Copies To: NORY ROJAS M.D, MD,RUY Chávez.; DOMINGO REAGAN,FAUSTINO SRicky; HECTOR REAGAN,PARTH Gross; KARL REAGAN,STEVEN Zuniga; KE REAGAN,JN Owen; ZAN REAGAN,JULISA URRUTIA MD, MANOLO Blanco ; CHINA REAGAN,BETSY Cody Consult Acknowledgment - Thank you for your consult request.
--- NOTE | 2016-06-14 08:09 | NUR ---
US AT BEDSIDE
--- NOTE | 2016-06-14 09:13 | ULTRASOUND REPORT ---
EXAMINATION: US RETROPERITONEAL COMPLETE (RENAL) CLINICAL INFORMATION: Decreased urine output.. COMPARISON: CT abdomen and pelvis from 06/13/2016. TECHNIQUE: Real-time imaging of the kidneys and bladder. FINDINGS: RIGHT KIDNEY: 11.7 x 4.3 x 4.7 cm (SAG x AP x TRV). The kidney is normal in size, contour, and echogenicity. Renal cortical thickness is normal. No calculi or focal parenchymal lesions. No hydronephrosis. LEFT KIDNEY: 11.6 x 3.7 x 3.5 cm (SAG x AP x TRV). The kidney has normal cortical thickness and cortical echotexture. There are no sonographically detected left renal calculi. The calyces are moderately dilated and the renal pelvis is severely dilated. There are no stones identified within the dilated renal pelvis. BLADDER: Urinary bladder is under distended. A right ureteral jet is seen. However, a left ureteral jet is not visualized. A 3 mm calcification is seen along the posterior bladder wall in the expected region of the ureterovesical junction. However, this is not observed on the contrast-enhanced CT exam of 06/13/2016 (and the left ureter is not dilated on the CT exam). IMPRESSION: 1. Right kidney is normal. 2. [id number] hydronephrosis of the left kidney. 3. Small, 3 mm calculus is seen in the expected location of the left ureterovesical junction. However, the left ureter is not dilated on the CT exam, which shows ureteropelvic junction obstruction.
[2016-06-14 09:19] VITALS: BP 100/51
--- NOTE | 2016-06-14 10:30 | NUR ---
PT TO MRI
--- NOTE | 2016-06-14 11:36 | NUR ---
PER HOUSE STAFF PT WILL BE CHANGED TO TELE.
[2016-06-14 11:38] LABS: ABSOLUTE BASOPHIL COUNT 0 /CUMM (0.0-0.2); ABSOLUTE EOSINOPHIL COUNT 0.2 /CUMM (0.0-0.7); ABSOLUTE GRANULOCYTE CT 11.7 /CUMM (1.4-6.5); ABSOLUTE LYMPH COUNT 0.2 /CUMM (1.2-3.4); ABSOLUTE MONOCYTE COUNT 0.1 /CUMM (0.10-0.60); BASOPHIL % 0 % (0.0-2.0); EOSINOPHIL % 1.7 % (0-5); GRANULOCYTE % 95.9 % (42.2-75.2); MEAN CORPUSCULAR HGB 28.4 PG (27.0-31.0); MEAN CORPUSCULAR HGB CONC 33.4 G/DL (33.0-37.0); MEAN CORPUSCULAR VOLUME 85.1 FL (81.0-99.0); MEAN PLATELET VOLUME 8.7 FL (7.4-10.4); PLATELET COUNT 152 /CUMM (130-400); RED BLOOD CELL CT 3.75 /CUMM (4.20-5.40); WHITE BLOOD CELL COUNT 12.2 /CUMM (4.8-10.8)
[2016-06-14 11:49] LABS: PT 21.7 SEC (9.4-12.5)
[2016-06-14 12:20] VITALS: BP 109/53
--- NOTE | 2016-06-14 12:25 | NUR ---
SPOKE TO STAN REGARDING PTS TEMP OF 101.6. HE WILL BE DOWN TO [facility] PT.
--- NOTE | 2016-06-14 13:57 | NUR ---
STAN AT BEDSIDE FOR EVAL AT THIS TIME.
--- NOTE | 2016-06-14 14:53 | NUR ---
REPORT GIVEN TO FLOOR.
--- NOTE | 2016-06-14 15:34 | MRI REPORT ---
EXAMINATION: MR ABDOMEN WITHOUT CONTRAST/MRCP CLINICAL INFORMATION: Transaminitis. Presumptive diagnosis of gallstones. COMPARISON: Renal ultrasound dated 06/14/2016. CT scan of the abdomen and pelvis dated 06/13/2016. TECHNIQUE: An MRI scan of the abdomen was performed using multiple imaging sequences and imaging planes. As per the MRCP protocol, heavily T2-weighted 3-D high-resolution MRCP sequences were obtained in the coronal plane along with thin and thick slab coronal images and coronal MIP reconstructions reviewed on an independent workstation. FINDINGS: Evaluation is limited due to motion artifact as well as suboptimal patient positioning. GALLBLADDER, BILIARY TREE: Gallbladder is not discretely identified and is likely surgically absent. Remnant cystic duct is unremarkable. The common bile duct is normal in caliber, measuring up to 0.6 cm in diameter. No obstructing stone or mass is seen. No intrahepatic ductal dilatation is present. LIVER: Liver is normal in size and signal. No suspicious mass seen on noncontrast exam. PANCREAS: Diffusely atrophic. Otherwise grossly unremarkable. SPLEEN: Normal size and appearance. ADRENAL GLANDS AND KIDNEYS: Both adrenal glands normal. Right kidney unremarkable. Moderate left-sided hydronephrosis with a very large renal pelvis again seen, unchanged from CT scan. The left ureter is decompressed and findings are consistent with a chronic ureteropelvic junction obstruction. BOWEL LOOPS: Grossly unremarkable. LYMPHOVASCULAR STRUCTURES: Aorta normal in caliber. No periaortic collections. Small retrocardiac hiatal hernia seen. No significant adenopathy seen. BONES: There is an S-shaped thoracolumbar scoliosis with multilevel moderate degenerative changes in the spine. IMPRESSION: 1. The gallbladder is not visualized and is likely surgically absent. Remnant cystic duct is unremarkable. 2. No intrahepatic or extrahepatic ductal dilatation is seen. No evidence of choledocholithiasis. 3. Atrophic pancreas. 4. Chronic left UPJ obstruction with moderate left-sided hydronephrosis and a very large and tortuous appearance of the renal pelvis. 5. Small retrocardiac hiatal hernia.
[2016-06-14 16:13] VITALS: BP 108/58
--- NOTE | 2016-06-14 19:00 | ULTRASOUND REPORT ---
EXAMINATION: US ABDOMEN AND PELVIS, Doppler CLINICAL INFORMATION: Shock liver. Transaminitis. Septic. Elevated INR. COMPARISON: Same day abdominal MRI the abdomen and pelvis 06/13/2016 TECHNIQUE: Grayscale, color and spectral Doppler imaging was obtained of the liver. FINDINGS: The liver demonstrates normal size, contour and attenuation. Visualized portal and hepatic veins are patent and demonstrate normal directionality of flow. IMPRESSION: Visualized portal and hepatic veins are patent and demonstrate normal directionality of flow.
--- NOTE | 2016-06-15 00:36 | NUR ---
Patient temp noted to be 100.9F upon assessment, c/o chills. VSS, lungs clear, denies any pain or discomfort. Spoke with Dr. Cox re: temp/chills, one time order for PO Tylenol and repeat blood cultures ordered. Will recheck temp in one hour.
[2016-06-15 01:15] VITALS: BP 110/60
--- NOTE | 2016-06-15 02:15 | NUR ---
Temperature taken 99.6F, body warm to the touch, reports intermittent chills. MD made aware of temp. BP WNL pulse 90s. Taking fluids well and increased fluids encouraged. Denies any pain or discomfort, no changes to POC at this time.
--- NOTE | 2016-06-15 04:56 | NUR ---
Patient temperature 98.3F, reports 'feeling much better.' Body still warm to the touch, not experiencing any chills or discomfort at this time. IV Flagyl has completed infusing. Will continue to monitor
--- NOTE | 2016-06-15 06:46 | PN- Housestaff ---
EYAL REAGAN,[facility] 06/15/16 0645: Subjective Follow-up For: Transaminitis Hypotension Recurrent falls Syncopal episodes Possible cholangitis Tele-Events Since Last Visit: Sinus Tachycardia 90-106 NO OE Subjective: Ms Llanos was seen and examined this morning. Resting comfortably in bed. States overnight she had one event of acute diarrhea. Patient states that this could've been attributed to not having taken her cholestyramine. The patient denies any chest pain or chest discomfort. She denies any shortness of breath. Patient does state that she has developed a cough. Cough is nonproductive in nature. Patient denies any fever, chills nausea vomiting. She states she is not in any acute pain. Review of Systems Constitutional: Reports: see HPI. Denies: chills, fever, weakness. Objective Last 24 Hrs of Vital Signs/I&O Vital Signs Date Time Temp Pulse Resp B/P Pulse O2 O2 Flow FiO2 Ox Delivery Rate 06/15 0455 98.3 06/15 0200 99.6 06/15 0115 98.7 104 20 110/60 95 06/15 0028 100.9 06/14 1613 99.2 102 16 108/58 91 Room Air 06/14 1610 99.2 06/14 1502 101.6 104 18 110/84 93 Room Air 06/14 1254 Room Air 06/14 1220 101.6 100 18 109/53 100 Room Air 06/14 1217 101.6 100 18 109/53 92 Room Air 06/14 0919 100.4 110 18 100/51 93 Room Air 06/14 0845 101.0 Intake & Output 06/15 0800 06/15 0000 06/14 1600 Intake Total 2200 1240 0 Output Total 400 500 Balance 1800 1240 -500 Intake, IV 1000 1000 Intake, Oral 1200 240 0 Number 1 2 Bowel Movements Output, Urine 400 500 Physical Exam General Appearance: Alert, Oriented X3, Cooperative Cardiovascular: Normal S1, Normal S2 Lungs: Clear to Auscultation Abdomen: Normal Bowel Sounds, Soft Neurological: Normal Speech Extremities: Lower Extremity Edema Current Medications: Current Medications Sig/Isela Start time Last Medication Dose Route Stop Time Status Admin Acetaminophen 650 MG ONCE ONE 06/15 0030 DC 06/15 PO 06/15 0031 0028 Acetaminophen 650 MG ONCE ONE 06/14 1515 DC 06/14 PO 06/14 1516 1610 Acetaminophen 650 MG Q8 PRN 06/14 1430 CAN PO Alendronate Sodium 70 MG QMON 06/19 0700 AC PO Ceftriaxone Sodium 1,000 MG DAILY 06/14 1000 AC 06/14 IV 1000 Cholestyramine Resin 1 PAC BID 06/15 1000 UNVr PO Escitalopram Oxalate 10 MG DAILY 06/14 1000 AC 06/14 PO 1000 Levothyroxine Sodium 0.15 MG DAILY AC 06/14 0700 AC 06/15 PO 0615 Metronidazole 500 MG Q8H 06/14 0400 AC 06/15 N/A 1 UNIT IV 0346 Oxycodone HCl 5 MG Q6-PRN PRN 06/13 2315 AC 06/14 PO 0422 Sodium Chloride 1,000 ML .Q8H 06/13 2230 AC 06/15 IV 0615 Last 24 Hrs of Lab/Juan Results Last 24 Hrs of Labs/Mics: Laboratory Tests 06/15/16 0615: Sodium Pending, Potassium Pending, Chloride Pending, Carbon Dioxide Pending, Anion Gap Pending, BUN Pending, Creatinine Pending, BUN/Creatinine Ratio Pending , Total Bilirubin Pending, Direct Bilirubin Pending, AST Pending, ALT Pending, Alkaline Phosphatase Pending, Total Protein Pending, Albumin Pending, TSH Pending, CBC w Diff Pending, WBC Pending, RBC Pending, Hgb Pending, Hct Pending, MCV Pending, MCH Pending, RDW Pending, Plt Count Pending, MPV Pending, PUBS MCHC Pending 06/14/16 1722: Troponin I < 0.01 06/14/16 1130: Anion Gap 13, Estimated GFR > 60, BUN/Creatinine Ratio 38.6 H, Total Bilirubin 1.0, Direct Bilirubin 0.6 H, AST 404 H, ALT 745 H, Alkaline Phosphatase 202 H, Total Protein 4.7 L, Albumin 2.4 L, PT 21.7 H, INR 2.08 H, CBC w Diff MAN DIFF ORDERED, RBC 3.75 L, MCV 85.1, MCH 28.4, RDW 15.0 H, MPV 8.7, Gran % 95.9 H, Lymphocytes % 1.3 L, Monocytes % 1.1 L, Eosinophils % 1.7, Basophils % 0 L, Absolute Granulocytes 11.7 H, Segmented Neutrophils 84 H, Band Neutrophils 11 H, Absolute Lymphocytes 0.2 L, Monocytes 2, Absolute Monocytes 0.1 L, Eosinophils 3, Absolute Eosinophils 0.2, Absolute Basophils 0, Platelet Estimate VERIFIED BY SMEAR, Normocytic RBCs VERIFIED, Normochromic RBCs VERIFIED, PUBS MCHC 33.4 Microbiology 06/15 44 BLOOD: Blood Culture - RECD 06/15 36 BLOOD: Blood Culture - RECD 06/14 2024 STOOL: Clostridium difficile Toxin A & B - RECD Assessment/Plan Assessment: 76-year-old female with PMH of osteoporosis, HLD, hypothyroidism, depression, presented for referral by her PCP, Dr. Khalil, for evaluation of recurrent fall and possible STR placement. In the ED, she was noted to be hypotensive at 84/51, for which her BP responded well to 2 L of NS. Her labs were found to be abnormal in the ED including AST 1649, ALT 1777, Alk phos 266, GGT 147, amylase 124, lipase 664. Although she denies any symptoms, and she had cholecystectomy in [address] was negative for stones, the hypotension is worrisome for impending acute cholangitis. She is admitted to and the following problems addressed: # Recurrent falls Patient gavino has had 4 falls recently, some of which were due to syncope. Thus she warrants further cardiac and neuro workup. Continue tele for close monitoring for arrythymia Check echocardiogram Consider neuro & cardiology consult Follow PT evaluation Follow Vit b12 - WNL Continue ashwin/vit D - Vit D low Continue multivitamin/iron/folate Continue oxycodone 5 mg q6p HOLD ibuprofen and Tylenol # Transaminitis, elevated lipase and amylase, hypotension, worrisome for impending acute cholangitis. Most likely cause is shock liver from hypotension on ED presentation. Given 1 time ceftriaxone and flagyl in the ED 2 L NS given in the ED LA 1.6 Follow MRCP Follow BC X 2, UC--> Pending Continue ceftriaxone and flagyl emprically---> stop antibiotics, lilkey contributing to drug fever Continue IVF Hold statin, for now. # Left UPJ obstruction on CT scan Urology consult - recommended outpatient follow up; however, previous records need to be obtained to confirm whether her hydronephrosis is acute or chronic. Follow Ucx Follow renal US - [id number] hydronephrosis of the left kidney and small , 3 mm calculus is seen in the expected location of the left ureterovesical junction. However, the left ureter is not dilated on the CT exam, which shows ureteropelvic junction obstruction. # Dehydration BUN 29H, cr 0.9 on admission Continue IVF Advance Diet to Full Liquids # Hypothyroidism Follow TSH, FT4 - T4 high, TSH low this admission Consider endo consult Continue levothyroxine 150 mcg # Diarrhea due to s/p Gall bladder removal. Continue cholestyramine 4 gm bid hold statin # Depression Continue escitalopram 10 mg # Osteoporosis Continue alendronate 70 q mon # Skin Continue clobetasol for vaginal Continue econazole for under breasts and inner thighs # GI Continue omeprazole 40 daily Hold till Enzymes Resolved Diet: NPO DVT ppx: mech. no pharm in case pt has to go for procedure FULL CODE Problem List: 1. Fever 2. Recurrent falls 3. Generalized weakness 4. Leukocytosis 5. Syncope 6. Transaminitis Pain Ratin Pain Location: Right Arm Pain Goal: Remain pain free Pain Plan: Tylenol PRN Tomorrow's Labs & Rationales: INR: Hepatic function monitor response to shock liver. CBC: Monitor for any signs of acute infection. BEP: Monitor for electrolyte derangements, and hypokalemia SHARRON HURST MD 06/15/16 2207: Attending MD Review Statement Attending Statement Attending MD Statement: examined this patient, discuss w/resident/PA/SUBSTITUTE TEACHER, agreed w/resident/PA/SUBSTITUTE TEACHER, discussed with family, reviewed EMR data (avail), discussed with nursing, discussed with case mgmt, reviewed images, amended to note Attending Assessment/Plan: The patient was seen and discussed with house staff. Appreciate GI & ID input. Agree with the plan of care as outlined.
--- NOTE | 2016-06-15 07:29 | PN- Gastroenterology ---
Assessment/Plan Assessment/Recommendations: 76-year-old female, fair historian, followed by numerous physicians, including Dr. Khalil for primary care, Dr. Lizarraga for surgery, Dr. Flores for pulmonary, Dr. Urrutia for cardiothoracic surgery, Dr. Rodriguez for STONE POLISHER HAND, Dr. Fuentes for orthopedics , and Dr. Dunlap for urology, with numerous issues, including hyperlipidemia, DJD, asthma, interstitial lung disease, benign left lung surgery, PA, depression , hypothyroidism, osteoporosis, bilateral total knee replacement, ORIF left hip, lumbar spine fusion, history of colon adenomas, positive family history of colon cancer (patient's mother- onset 70's 77), chronic post cholecystectomy loose stools since gallbladder surgery 05/22/2006, stable on Questran 4g b.i.d. (not t.i.d., as per the patient), stable symptoms of reflux on Prilosec 20 mg daily, diverticulosis coli, chronic anemia, plus paraesophageal hernia repair with mesh placement and Socorro fundoplication 01/24/2007. She also had a subsequent incisional hernia repair plus correction of small bowel obstruction. She has had numerous GI testing done. 11/21/2005: Combined EGD and colonoscopy- large hiatal hernia, minimal esophagitis on biopsies, without Alanis's esophagus, HP-negative gastritis, small bowel biopsy- normal villi with extensive diverticulosis coli and normal colonic mucosa. 04/09/2006: tTG antibody- negative, antigliadin antibody- negative. I am not certain if a total serum IgA level was sent. 10/18/2006: CT scan of the chest without contrast- large hiatal hernia with questionable food in hiatal hernia pouch, obstruction versus mucosal mass. 11/29/2006: Barium swallow/upper GI series- large paraesophageal hiatal hernia with increased reflux, without obstruction. 12/27/2006: EGD with biopsies- minimal distal esophagitis with benign squamous mucosa and minimal reactive change on biopsies. Large paraesophageal hiatal hernia from 30-39 cm, without obstruction. Biopsy of hiatal hernia pouch showing mild gastritis, H. pylori- negative. 01/24/2007- Laparoscopic hiatal hernia repair with mesh placement and Socorro fundoplication. 02/06/2007: Repair of incisional hernia and small bowel obstruction. 10/15/2007: H. pylori antibody- negative. 03/14/2011: Followup colonoscopy to the terminal ileum with random biopsies of the terminal ileum, right colon, left colon, and rectum- unremarkable, intraoperative stool workup- negative, extensive left sided diverticula, mild internal hemorrhoids, and removal of 6 mm benign rectal tubular adenoma. 05/25/2015: Colonoscopy to cecum- 1. Extensive pandiverticulosis coli, left side greater than right. 2. Normal colonic mucosa to the cecum, without any recurrent polyps. (*Add high-fiber diet plus FiberCon 2 tabs daily. With past personal history of colon adenomas and positive family history of colon cancer, advise follow-up surveillance colonoscopy with the pediatric colonoscope in 5 years (i.e.- 2019). *The patient was subsequently found to have PA- 06/30/2015: IgA 121, tTG Ab- neg, DGP Ab- neg, nl SPEP/IPEP, elevated MMA 3900, B12 < 159, Fe 96, TIBC 323, Fe sat 29.7%, ferritin 92.5. 07/26/2015: + anti-IF Ab, +anti-PC Ab 61.4. 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 She has been seeing orthopedics for this. Her right arm is in a sling. She fell again on 06/12/2016 and developed a hematoma in her coccygeal region. She went to the [facility] ER 06/12/2016 to be evaluated for the above, was felt to be stable, and was sent home, where she lives with her , Boni, and her daughter, Alejandra. The patient fell again 2016, landing on her back. There was no apparent head trauma. She went her PMD , Dr. Khalil, 06/13/2016, and was sent to the [facility], where she arrived 06/13 at 4:23 p.m. Upon arrival, BP 84/51, P 100, R 20, T 98.2, O2 sat RA 94%. She subsequently spiked to 101.4. Her BP improved after IVF. She was suddenly found to have elevated transaminases (see below). Imaging studies did not show any acute GI process, however she had a left hydroureter, which was evaluated by urology and felt to be chronic in nature, without need for surgical intervention. The patient was empirically put on IV Ceftriaxone and Flagyl in the ER, and received Toradol, Tylenol, and morphine. *She was on outpatient Simvastatin, but this is old. Regards to the liver function tests, the patient denies any new medications except for Advil. She was only taking scant amounts of Tylenol with codeine, which have been stopped some time ago. She had been on Oxycodone, which was stopped as well. Her Tylenol level was negative. She denies any herbal medications or new medications otherwise. She denies a history of hepatitis, blood transfusions, IVDA, EtOH, or illicit drug use. She did have some subjective fevers, but no chills. She denied any symptoms of UTI or URI. There is no abdominal pain. She denies any nausea, vomiting, reflux, odynophagia, dysphagia, diarrhea, constipation, obstipation, rectal bleeding, melena, or hematemesis. She denies any confusion or increased abdominal girth. She has chronic pedal edema. She denies any jaundice, dark urine, light stools, pruritus, rashes or arthralgias. She had normal renal function on admission. There is no family history of inherited liver disease. There is a positive family history of colon cancer in the patient's mother, as above. She denied any chest pain, shortness breath, or LOC. She denied any abdominal trauma. *Note: 05/31/2016: *normal LFTs 06/13/2016: BC x 2- negative so far. 06/14/2016: U/A- clear, yellow, < 1.005, pH 6.0, 15-25 WBC, moderate bacteria, 30+ protein, otherwise negative; negative nitrite, small esterase. 06/14/2016: UC- pending. 06/14/2016: C. difficile- pending. 06/15/2016: BC x 2- pending. 06/13/2016: Admission labs- WBC 12.4 (97% gran, 12 gran Ab), H/H 12.4/37.6, normal MCV, PLT 207, PT 0.9, INR 1.23, PTT 29, glucose 122, BUN/Cr 29/0.9, GFR > 60, rheumatoid 34, potassium 4.7, bicarbonate 25, AG 12, lactate 1.6, amylase/ lipase 124/664, Mg 1.7, calcium 9.4, albumin 3.6, globulin 2.9, TBil 1.8, DBil 0.7, alk phos 266 (fluctuates chronically), AST 1649, ALT 1777, *elevated GGT 147, CK 400, troponin < .01; *Hep A Ab, Hep Bs Ag, Hep B core Ab, Hep C Ab- all negative, low TSH 0.217, elevated FT4 2.83, [Tylenol] < 10, B12 915, low Vit D 21.5. 06/13/2016: EKG- NSR @ 98, nl axis, nl intervals, early transition, PRWP, NSST antlat 06/13/2016: CXR- NAD 06/13/2016: CT ABD & PELVIS W IV CONTRAST- 1. No acute change of the abdomen or pelvis. Gallbladder absent. No bile duct dilatation. Pancreas is unremarkable. No liver lesion except tiny right hepatic cyst. Small right anterior mesenteric twist, without obstruction. No mesenteritis. Small HH. AP not seen. Extensive sigmoid diverticulosis without diverticulitis. No abdominal wall hernia. Fusion L4/L5. DJD. Orthopedic pins left femur. 2. 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 *It is difficult to tell at the moment whether the patient's LFTs are reactive in nature versus primary in nature. She was hypotensive. *She certainly could have shock liver (ischemic hepatitis). She was febrile. The above hypotension could be reactive in nature to some non-GI source of sepsis. Having stated that , cholangitis should be excluded, although her LFTs are predominantly in a transaminitis pattern more so than an obstructive pattern. She is post-CCKY. There is a hematoma in the coccygeal region with multiple falls. Some of the transaminase elevation could be from skeletal muscle. Her CK is elevated with negative troponin. Admission CT abdomen and pelvis with IV contrast does not show any acute GI process. The left hydroureter is chronic in nature and felt not to need instrumentation, as per urology. There was no gross evidence of ischemic bowel on the admission CT, although it is possible she could develop bowel/mesenteric ischemia secondary to the hypotension, which has resolved. The lipase elevation is minimal. *I do not think she has true pancreatitis. She has a benign abdominal exam. Her pancreas looks normal on the IV contrast CT. Hepatitis A, B, and C serologies are negative. Doubt EBV/CMV hepatitis, but possible. Doubt HV/PV thrombosis. Tylenol levels are negative. 06/14/2016: RENAL SONO- 1. Right kidney is normal. 2. Exekwipp-cy-vdeoes hydronephrosis of the left kidney. 3. Small, 3 mm calculus is seen in the expected location of the left ureterovesical junction. However, the left ureter is not dilated on the CT exam, which shows ureteropelvic junction obstruction. 06/14/2016: MRCP- 1. The gallbladder is not visualized and is likely surgically absent. Remnant cystic duct is unremarkable. 2. No intrahepatic or extrahepatic ductal dilatation is seen. No evidence of choledocholithiasis. 3. Atrophic pancreas. 4. Chronic left UPJ obstruction with moderate left-sided hydronephrosis and a very large and tortuous appearance of the renal pelvis. 5. Small retrocardiac hiatal hernia. 06/14/2016: US-ABD/PELV ORGAN DOPPLER- Visualized portal and hepatic veins are patent and demonstrate normal directionality of flow. *As of 06/15/2016, the patient is slowly defervescing on IV Ceftriaxone and Flagyl. Tm 101.6 on 06/14/2016. She is no longer hypotensive. Her liver function tests, especially her transaminases, are declining. Her leukocytosis remains. She is mildly anemic, although admission CT did not show any retroperitoneal bleed and she was guaiac negative on admission. Most likely, she was hemoconcentrated on admission. INR is elevated, post presumed shock liver/ischemic hepatitis (also on antibiotics). 06/14/2016: MRCP- without obstruction or choledocholithiasis, post CCKY. 06/14/2016: Doppler- patent PV/ HV. 06/14/2016: Renal sono- moderate to severe chronic left-sided hydronephrosis, 3 mm stone at the left UVJ, although no dilated ureter. The patient tolerated clears po. She denies any chills, nausea, vomiting, abdominal pain, jaundice, dark urine, light stools, pruritus, confusion, chills, chest pain, or shortness of breath. She has a mild dry cough. She has mild diarrhea, most likely due to her Questran being stopped on admission, on this for chronic post-CCKY loose stools. Cultures remain negative so far. She does not seem to have cholangitis clinically, nor by imaging studies. SUGGEST: Advance diet as tolerated. IVF. Follow-up cultures 7 06/14/2016: C.difficile, although most probably her loose stools are post-CCKY in nature. Resume patient 's outpatient dose of Questran 4g po BID 1/2 hour before breakfast and supper.* Agree with broad-spectrum antibiotics, currently on IV Ceftriaxone and Flagyl. *Serial LFTs and *PT with INR (? shock liver). *Check EBV/CMV/Aldolase. As alkaline phosphatase appears to be intermittently chronically elevated with elevated GGT, consider checking HARSH/AMA. *Continue to hold Simvastatin. * Consider checking urine for myoglobin (r/o rhabdomyolysis). Avoid hepatotoxins & NSAIDS. Keep Tylenol use to a minimum. May continue PPI. Workup of falls & tx of mild hyper T4, etc., as per medical team. If fevers persist, consider ID input. Urology is on board. The above was discussed with the patient, her , Boni, & her daughter, Alejandra, in detail, as per patient request, upon admission. The above was also discussed with the medical house staff. As an aside, by dates, the patient is due for follow surveillance colonoscopy with the pediatric colonoscope in 05/2020, regarding her history of adenomas. Further recommendations to follow, depending on clinical course. Problem List: 1. Transaminitis 2. Ischemic hepatitis 3. Hypotension 4. Fever 5. Leukocytosis Subjective Subjective: *As of 06/15/2016, the patient is slowly defervescing on IV Ceftriaxone and Flagyl. Tm 101.6 on 06/14/2016. She is no longer hypotensive. Her liver function tests, especially her transaminases, are declining. Her leukocytosis remains. She is mildly anemic, although admission CT did not show any retroperitoneal bleed and she was guaiac negative on admission. Most likely, she was hemoconcentrated on admission. INR is elevated, post presumed shock liver/ischemic hepatitis (also on antibiotics). 06/14/2016: MRCP- without obstruction or choledocholithiasis, post CCKY. 06/14/2016: Doppler- patent PV/ HV. 06/14/2016: Renal sono- moderate to severe chronic left-sided hydronephrosis, 3 mm stone at the left UVJ, although no dilated ureter. The patient tolerated clears po. She denies any chills, nausea, vomiting, abdominal pain, jaundice, dark urine, light stools, pruritus, confusion, chills, chest pain, or shortness of breath. She has a mild dry cough. She has mild diarrhea, most likely due to her Questran being stopped on admission, on this for chronic post-CCKY loose stools. Cultures remain negative so far. 06/14/2016: RENAL SONO- 1. Right kidney is normal. 2. Cjgksiqw-cf-uwmcym hydronephrosis of the left kidney. 3. Small, 3 mm calculus is seen in the expected location of the left ureterovesical junction. However, the left ureter is not dilated on the CT exam, which shows ureteropelvic junction obstruction. 06/14/2016: MRCP- 1. The gallbladder is not visualized and is likely surgically absent. Remnant cystic duct is unremarkable. 2. No intrahepatic or extrahepatic ductal dilatation is seen. No evidence of choledocholithiasis. 3. Atrophic pancreas. 4. Chronic left UPJ obstruction with moderate left-sided hydronephrosis and a very large and tortuous appearance of the renal pelvis. 5. Small retrocardiac hiatal hernia. 06/14/2016: US-ABD/PELV ORGAN DOPPLER- Visualized portal and hepatic veins are patent and demonstrate normal directionality of flow. Review of Systems: Full 14 point ROS otherwise noncontributory, and as above. Review of Systems Constitutional: Reports: fever, weakness. Denies: chills, diaphoresis, malaise, unexplained weight loss. EENTM: Denies: blurred vision, double vision, visual changes, eye pain, eye drainage, eye tearing, icterus, ear discharge, ear pain, ear redness, hearing changes, nasal congestion, epistaxis, nasal pain, throat pain, throat swelling, mouth pain, tooth pain. Cardiovascular: Reports: edema, peripheral edema (chronic). Denies: chest pain, orthopena, palpitations, syncope. Respiratory: Reports: mild dry cough Denies: hemoptysis, orthopnea, short of breath, sputum production, stridor, wheezing. GI: Reports: mild diarrhea since stopping Questran (post-CCKY) Denies: abdominal pain, bloating, constipation, distention, bowel incontinence, melena, nausea, bloody stool, changes in stool, vomiting, steatorrhea. Genitourinary: Denies: discharge, dysuria, frequency, hematuria, hesitation, nocturia, pain, urgency. Musculoskeletal: Reports: back pain (falls with coccygeal hematoma), joint pain (DJD), neck pain (chronic). Denies: gout, joint swelling, muscle pain, muscle stiffness. Skin: Reports: change in skin color (coccygeal hematoma post fall). Denies: cysts, change in hair/nails, dryness, erythema, jaundice, lesions, lymphangitis, lumps, moles, rash. Neurological/Psychological: Reports: depressed, emotional problems, weakness. Denies: anxiety, ataxia, cognitive dysfunction, confusion, dementia, headache, numbness, paresthesia, pre-existing deficit, petit mal seizures, tingling, tremors, tonic-clonic seizures, unable to move lower ext, unable to move upper ext. Hematologic/Endocrine: Reports: bruising (post mult falls). Denies: bleeding, polyuria, polydipsia. Immunologic/Allergic: Denies: splenectomy, HIV/AIDS, lymphadenopathy. All Other Systems: Reviewed and Negative Objective Vital Signs and I&Os Vital Signs Date Time Temp Pulse Resp B/P Pulse O2 O2 Flow FiO2 Ox Delivery Rate 06/15 0455 98.3 06/15 0200 99.6 06/15 0115 98.7 104 20 110/60 95 06/15 0028 100.9 06/14 1613 99.2 102 16 108/58 91 Room Air 06/14 1610 99.2 06/14 1502 101.6 104 18 110/84 93 Room Air 06/14 1254 Room Air 06/14 1220 101.6 100 18 109/53 100 Room Air 06/14 1217 101.6 100 18 109/53 92 Room Air 06/14 0919 100.4 110 18 100/51 93 Room Air 06/14 0845 101.0 Intake & Output 06/15 1600 06/15 0400 06/14 1600 06/14 0400 06/13 1600 06/13 0400 Intake Total 2200 1240 0 Output Total 400 750 Balance 1800 1240 -750 Intake, IV 1000 1000 Intake, Oral 1200 240 0 Number 1 2 Bowel Movements Output, Urine 400 750 Patient 140 lb Weight Physical Exam: Well-developed, well-nourished, elderly female, in no apparent distress. Sclera anicteric. Conjunctiva pink. Oropharynx clear. No oral thrush. No apthous ulcers. There is no adenopathy, thyromegaly, or JVD. No peripheral stigmata of inflammatory bowel disease or chronic liver disease on exam. No spiders on the anterior chest wall. No CVA tenderness. T-L scoliosis. Lungs: clear to A&P, with slight decreased BS at the bases B/L. Heart exam: regular rate rhythm, S1 and S2 without any murmur. 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 Abdominal exam: normal bowel sounds, soft belly, nontender, without guarding or rebound. Post CCKY. No mass. No organomegaly. No fluid shift. No pulsatile mass. Digital rectal exam by myself 06/14/16: brown stool, OB negative, normal sphincter tone, no mass. Hematoma in coccygeal region. No decubitus ulcer. Multiple scars post LS spine surgery, B/L TKR. Extremities: without cyanosis or clubbing. > 1+ pedal edema B/L. No palpable cords. RUE remains in sling. Distal pulses 2+ bilaterally. DTRs 2+ bilaterally. No Dupuytren's contracture. No palmar erythema. Alert and oriented x 3. No tremor. No asterixis. Current Medications: Current Medications Sig/Isela Start time Last Medication Dose Route Stop Time Status Admin Acetaminophen 650 MG ONCE ONE 06/15 0030 DC 06/15 PO 06/15 0031 0028 Acetaminophen 650 MG ONCE ONE 06/14 1515 DC 06/14 PO 06/14 1516 1610 Acetaminophen 650 MG Q8 PRN 06/14 1430 CAN PO Alendronate Sodium 70 MG QMON 06/19 0700 AC PO Ceftriaxone Sodium 1,000 MG DAILY 06/14 1000 AC 06/14 IV 1000 Cholestyramine Resin 1 PAC BID 06/15 1000 AC PO Escitalopram Oxalate 10 MG DAILY 06/14 1000 AC 06/14 PO 1000 Levothyroxine Sodium 0.15 MG DAILY AC 06/14 0700 AC 06/15 PO 0615 Metronidazole 500 MG Q8H 06/14 0400 AC 06/15 N/A 1 UNIT IV 0346 Oxycodone HCl 5 MG Q6-PRN PRN 06/13 2315 AC 06/14 PO 0422 Sodium Chloride 1,000 ML .Q8H 06/13 2230 06/15 IV 0615 Results Pertinent Lab Results: Laboratory Tests 06/1515 1722 1130 Chemistry Sodium (137 - 145 mmol/L) Pending 138 Potassium (3.5 - 5.1 mmol/L) Pending 4.0 Chloride (98 - 107 mmol/L) Pending 106 Carbon Dioxide (22 - 30 mmol/L) Pending 19 L Anion Gap (5 - 16) Pending 13 BUN (7 - 17 mg/dL) Pending 27 H Creatinine (0.5 - 1.0 mg/dL) Pending 0.7 Estimated GFR (>60 ml/min) > 60 BUN/Creatinine Ratio (7 - 25 %) Pending 38.6 H Total Bilirubin (0.2 - 1.3 mg/dL) Pending 1.0 Direct Bilirubin (< 0.4 mg/dL) Pending 0.6 H AST (14 - 36 U/L) Pending 404 H ALT (9 - 52 U/L) Pending 745 H Alkaline Phosphatase (<127 U/L) Pending 202 H Troponin I (< 0.11 ng/ml) < 0.01 Total Protein (6.3 - 8.2 g/dL) Pending 4.7 L Albumin (3.5 - 5.0 g/dL) Pending 2.4 L TSH Pending Coagulation PT (9.4 - 12.5 SEC) 21.7 H INR (0.90 - 1.19) 2.08 H Hematology CBC w Diff Pending MAN DIFF ORDERED WBC (4.8 - 10.8 /CUMM) Pending 12.2 H RBC (4.20 - 5.40 /CUMM) Pending 3.75 L Hgb (12.0 - 16.0 G/DL) Pending 10.7 L Hct (37 - 47 %) Pending 31.9 L MCV (81.0 - 99.0 FL) Pending 85.1 MCH (27.0 - 31.0 PG) Pending 28.4 RDW (11.5 - 14.5 %) Pending 15.0 H Plt Count (130 - 400 /CUMM) Pending 152 MPV (7.4 - 10.4 FL) Pending 8.7 Gran % (42.2 - 75.2 %) 95.9 H Lymphocytes % (20.5 - 51.1 %) 1.3 L Monocytes % (1.7 - 9.3 %) 1.1 L Eosinophils % (0 - 5 %) 1.7 Basophils % (0.0 - 2.0 %) 0 L Absolute Granulocytes (1.4 - 6.5 /CUMM) 11.7 H Segmented Neutrophils (42.2 - 75.2 %) 84 H Band Neutrophils (0.0 - 5.0 %) 11 H Absolute Lymphocytes (1.2 - 3.4 /CUMM) 0.2 L Monocytes (1.7 - 9.3 %) 2 Absolute Monocytes (0.10 - 0.60 /CUMM) 0.1 L Eosinophils (0 - 5.0 %) 3 Absolute Eosinophils (0.0 - 0.7 /CUMM) 0.2 Absolute Basophils (0.0 - 0.2 /CUMM) 0 Platelet Estimate (ADEQUATE) VERIFIED BY SMEAR Normocytic RBCs VERIFIED Normochromic RBCs VERIFIED PUBS MCHC (33.0 - 37.0 G/DL) Pending 33.4 06/14 Chemistry Lactic Acid Cancelled Urines Urinalysis LIGHT H Urine Color (YEL,AMB,STR) YEL Urine Clarity (CLEAR) CLEAR Urine pH (5.0 - 8.0) 6.0 Ur Specific Roulette (1.001 - 1.035) <= 1.005 Urine Protein (NEG,<30 MG/DL) 30 H Urine Ketones (NEG) NEG Urine Nitrite (NEG) NEG Urine Bilirubin (NEG) NEG Urine Urobilinogen (0.1 - 1.0 EU/dl) 1.0 Ur Leukocyte Esterase (NEG) SMALL H Ur Microscopic SEDIMENT EXAMINED Urine RBC (0 - 5 /HPF) RARE Urine WBC (0 - 2 /HPF) 15-25 H Ur Epithelial Cells (NONE,FEW) FEW Hyaline Casts (0/LPF) RARE H Urine Mucus (FEW,NONE) RARE Urine Hemoglobin (NEG) TRACE-LYSED Urine Glucose (N MG/DL) NEG 06/13 1800 Chemistry Sodium (137 - 145 mmol/L) 134 L Potassium (3.5 - 5.1 mmol/L) 4.7 Chloride (98 - 107 mmol/L) 96 L Carbon Dioxide (22 - 30 mmol/L) 25 Anion Gap (5 - 16) 12 BUN (7 - 17 mg/dL) 29 H Creatinine (0.5 - 1.0 mg/dL) 0.9 Estimated GFR (>60 ml/min) > 60 BUN/Creatinine Ratio (7 - 25 %) 32.2 H Glucose (65 - 99 mg/dL) 122 H Lactic Acid (0.7 - 2.1 mmol/L) 1.6 Calcium (8.4 - 10.2 mg/dL) 9.4 Magnesium (1.6 - 2.3 mg/dL) 1.7 Total Bilirubin (0.2 - 1.3 mg/dL) 1.8 H Direct Bilirubin (< 0.4 mg/dL) 0.7 H GGT (12 - 43 U/L) 147 H AST (14 - 36 U/L) 1649 H ALT (9 - 52 U/L) 1777 H Alkaline Phosphatase (<127 U/L) 266 H Creatine Kinase (30 - 135 U/L) 400 H Troponin I (< 0.11 ng/ml) < 0.01 Total Protein (6.3 - 8.2 g/dL) 6.5 Albumin (3.5 - 5.0 g/dL) 3.6 Globulin (1.9 - 4.2 gm/dL) 2.9 Albumin/Globulin Ratio (1.1 - 2.2 %) 1.2 Amylase (30 - 110 U/L) 124 H Lipase (23 - 300 U/L) 664 H Vitamin B12 (239 - 931 pg/mL) 915 25-OH Vitamin D Total (30 - 100 ng/ml) 21.5 L TSH (0.270 - 4.200 uIU/mL) 0.217 L Free T4 (0.78 - 2.44 ng/dL) 2.83 H Coagulation PT (9.4 - 12.5 SEC) 12.9 H INR (0.90 - 1.19) 1.23 H APTT (25 - 37 SEC) 29 Hematology CBC w Diff Pending WBC (4.8 - 10.8 /CUMM) 12.4 H RBC (4.20 - 5.40 /CUMM) 4.39 Hgb (12.0 - 16.0 G/DL) 12.4 Hct (37 - 47 %) 37.6 MCV (81.0 - 99.0 FL) 85.7 MCH (27.0 - 31.0 PG) 28.2 RDW (11.5 - 14.5 %) 15.2 H Plt Count (130 - 400 /CUMM) 207 MPV (7.4 - 10.4 FL) 9.0 Gran % (42.2 - 75.2 %) 96.7 H Lymphocytes % (20.5 - 51.1 %) 1.1 L Monocytes % (1.7 - 9.3 %) 1.4 L Eosinophils % (0 - 5 %) 0.8 Basophils % (0.0 - 2.0 %) 0 L Absolute Granulocytes (1.4 - 6.5 /CUMM) 12.0 H Absolute Lymphocytes (1.2 - 3.4 /CUMM) 0.1 L Absolute Monocytes (0.10 - 0.60 /CUMM) 0.2 Absolute Eosinophils (0.0 - 0.7 /CUMM) 0.1 Absolute Basophils (0.0 - 0.2 /CUMM) 0 PUBS MCHC (33.0 - 37.0 G/DL) 32.9 L Serology Hepatitis A IgM Ab (NONREACTIVE) NONREACTIVE Hep Bs Antigen (NONREACTIVE) NONREACTIVE Hep B Core IgM Ab Conf (NONREACTIVE) NONREACTIVE Hepatitis C Antibody (NONREACTIVE) NONREACTIVE Toxicology Acetaminophen (10.0 - 30.0 ug/mL) < 10.0 L Imaging/Other Studies: 06/13/2016: EKG- NSR @ 98, nl axis, nl intervals, early transition, PRWP, NSST antlat 06/13/2016: CXR- NAD 06/13/2016: CT ABD & PELVIS W IV CONTRAST- 1. No acute change of the abdomen or pelvis. Gallbladder absent. No bile duct dilatation. Pancreas is unremarkable. No liver lesion except tiny right hepatic cyst. Small right anterior mesenteric twist, without obstruction. No mesenteritis. Small HH. AP not seen. Extensive sigmoid diverticulosis without diverticulitis. No abdominal wall hernia. Fusion L4/L5. DJD. Orthopedic pins left femur. 2. 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 06/14/2016: RENAL SONO- 1. Right kidney is normal. 2. Scszcmps-xu-qhgyon hydronephrosis of the left kidney. 3. Small, 3 mm calculus is seen in the expected location of the left ureterovesical junction. However, the left ureter is not dilated on the CT exam, which shows ureteropelvic junction obstruction. 06/14/2016: MRCP- 1. The gallbladder is not visualized and is likely surgically absent. Remnant cystic duct is unremarkable. 2. No intrahepatic or extrahepatic ductal dilatation is seen. No evidence of choledocholithiasis. 3. Atrophic pancreas. 4. Chronic left UPJ obstruction with moderate left-sided hydronephrosis and a very large and tortuous appearance of the renal pelvis. 5. Small retrocardiac hiatal hernia. 06/14/2016: US-ABD/PELV ORGAN DOPPLER- Visualized portal and hepatic veins are patent and demonstrate normal directionality of flow.
[2016-06-15 08:00] VITALS: BP 110/60
[2016-06-15 08:02] LABS: ABSOLUTE BASOPHIL COUNT 0 /CUMM (0.0-0.2); ABSOLUTE EOSINOPHIL COUNT 0.2 /CUMM (0.0-0.7); ABSOLUTE GRANULOCYTE CT 9.4 /CUMM (1.4-6.5); ABSOLUTE LYMPH COUNT 0.4 /CUMM (1.2-3.4); ABSOLUTE MONOCYTE COUNT 0.1 /CUMM (0.10-0.60); BASOPHIL % 0.3 % (0.0-2.0); EOSINOPHIL % 1.6 % (0-5); GRANULOCYTE % 93.3 % (42.2-75.2); HEMATOCRIT 30.9 % (37-47); MEAN CORPUSCULAR HGB 28.2 PG (27.0-31.0); MEAN CORPUSCULAR HGB CONC 33.5 G/DL (33.0-37.0); MEAN CORPUSCULAR VOLUME 84.3 FL (81.0-99.0); PLATELET COUNT 130 /CUMM (130-400); RBC DISTRIBUTION WIDTH 15.5 % (11.5-14.5); RED BLOOD CELL CT 3.66 /CUMM (4.20-5.40); WHITE BLOOD CELL COUNT 10.1 /CUMM (4.8-10.8)
[2016-06-15 08:28] LABS: HEMATOCRIT 31.9 % (37-47)
--- NOTE | 2016-06-15 08:33 | Patient Discharge Instructions ---
Discharge Instructions General Discharge Information You were seen/treated for: Fall/ cervical cord compression Transaminitis Fever due to drug reaction. Watch for these problems: Fever, nausea, vomiting, chills, weakness, increased generalized edema. Palpitations. Chest pain. Shortness of breath. If you have any adverse reactions from any of the medications prescribed please inform your primary care physician and you may be required to come back to the emergency department. Thank you for letting us be part of your care. Special Instructions: -you are being transferred to [facility] for furthur management of your cervical cord compression. -Please follow-up with your primary care provider within 7 days after discharge. -Please follow-up with your mail superintendent within 14 days after discharge -Please follow-up with candles pourer 14 days after discharge -Please follow-up with your neurologist 14 days after discharge -Please follow-up with your urologist within 14 days after discharge -Please follow up with your orthopedic surgeon within 2 weeks of discharge for management of your right arm and to discuss length of treatment in arm sling. -We have made changes to your home medications, please read the instructions carefully. -Please come back to the hospital if your symptoms got worse. Diet Recommended Diet: Heart Healthy Activity Full Activity/No Limits: No Activity Self Limited: Yes (As Tolerated) Acute Coronary Syndrome Inclusion Criteria At DC or during hospital stay patient has or had the following: ACS DIAGNOSIS No Discharge Core Measures Meds if any: Prescribed or Continued at Discharge Meds if any: NOT Prescribed or Continued at Discharge Congestive Heart Failure Inclusion Criteria At DC or during hospital stay patient has or had the following: CHF DIAGNOSIS No Discharge Core Measures Meds if any: Prescribed or Continued at Discharge Meds if any: NOT Prescribed or Continued at Discharge Cerebrovascular accident Inclusion Criteria At DC or during hospital stay patient has or had the following: CVA/TIA Diagnosis No Discharge Core Measures Meds if any: Prescribed or Continued at Discharge Meds if any: NOT Prescribed or Continued at Discharge Venous thromboembolism Inclusion Criteria VTE Diagnosis No VTE Type NONE VTE Confirmed by (Test) NONE Discharge Core Measures - Per Current guidelines, there needs to be overlap - treatment for the first 5 days of Warfarin therapy. - If discharged on Warfarin prior to 5 days of - overlap therapy, the patient will need to be - assessed for post discharge needs including - *Post discharge parental anticoagulation - *Warfarin and/or parental anticoagulation education - *Follow up date to check INR post discharge At least 5 days overlap therapy as Inpatient No Meds if any: Prescribed or Continued at Discharge Note: Overlap Therapy is Warfarin and Anticoagulant Meds if any: NOT Prescribed or Continued at Discharge
--- NOTE | 2016-06-15 10:37 | Cons- Cardiology ---
General Information and HPI Consulting Request Date of Consult: 06/15/16 Requested By: NAREN ROJAS M.D Reason for Consult: Syncope History of Present Illness: The patient is a 76-year-old female with history of hypothyroidism, hyperlipidemia, and depression who presented to the hospital with complaint of generalized weakness with inability to walk. She has had several falls over the past few weeks, and she sustained a right arm fracture. He had a syncopal episode which lasted for 5 seconds, and occurred while her splint was being removed at her house. No chest discomfort. No palpitations. She denies any prior history of cardiac disease. She notes chronic bilateral lower extremity edema. She is noted to have a left UPJ obstruction. She was hypotensive on presentation, however blood pressure has now normalized. She is noted to have transaminitis. She is being treated with antibiotics for possible cholangitis. Allergies/Medications Allergies: Coded Allergies: amoxicillin (Mild, RASH 06/13/16) clarithromycin (From BIAXIN) (Mild, RASH 06/13/16) urokinase (Mild, RASH 06/13/16) Home Med List: Alendronate Sodium 70 MG TABLET 1 TAB PO QMON OP (Reported) in the morning, at least 30 minutes before the first food, beverage, or medication of the day Calcium Carbonate/Vitamin D3 (Caltrate 600 + D Tablet) 600 MG-800 TABLET 1 TAB PO DAILY SUPPLEMENT (Reported) Calcium Polycarbophil (Fibercon) 625 MG TABLET 625 MG PO D FIBER SUPPLEMENT ( Reported) Cholestyramine (With Sugar) (Cholestyramine Packet) 4 GRAM POWD.PACK 1 Scoopful PO BID LIVER-BILE DUCT (Reported) Clobetasol Propionate 0.05 % CREAM..G. 1 JACQUI TOP D ECZEMA (Reported) apply to affected area(s) Econazole (Econazole Nitrate) 1 % CREAM..G. 1 JACQUI TOP BID ECZEMA (Reported) apply to affected area(s) Escitalopram Oxalate 10 MG TABLET 1 TAB PO DAILY DEPRESSION (Reported) Levothyroxine Sodium 150 MCG TABLET 1 TAB PO DAILY THYROID (Reported) Multivitamin/Iron/Folic Acid (Centrum Complete Multivit Tab) 18 MG IRON-400 MCG TABLET 1 TAB PO D SUPPLEMEMT (Reported) Omeprazole 40 MG CAPSULE.DR 1 CAP PO DAILY GERD (Reported) Oxycodone HCl 5 MG TABLET 1 TAB PO 4XDAILY PRN PAIN (Reported) Simvastatin (Simvastatin*) 20 MG TABLET 1 TAB PO QPM HLD (Reported) Current Medications: Current Medications Sig/Isela Start time Last Medication Dose Route Stop Time Status Admin Acetaminophen 650 MG ONCE ONE 06/15 0030 DC 06/15 PO 06/15 0031 0028 Acetaminophen 650 MG ONCE ONE 06/14 1515 DC 06/14 PO 06/14 1516 1610 Acetaminophen 650 MG Q8 PRN 06/14 1430 CAN PO Alendronate Sodium 70 MG QMON 06/19 0700 AC PO Ceftriaxone Sodium 1,000 MG DAILY 06/14 1000 AC 06/15 IV 0940 Cholestyramine Resin 1 PAC BID 06/15 1000 AC 06/15 PO 0939 Escitalopram Oxalate 10 MG DAILY 06/14 1000 AC 06/15 PO 0938 Levothyroxine Sodium 0.15 MG DAILY AC 06/14 0700 AC 06/15 PO 0615 Metronidazole 500 MG Q8H 06/14 0400 AC 06/15 N/A 1 UNIT IV 0346 Omeprazole 40 MG DAILY AC 06/15 0826 AC 06/15 PO 0937 Oxycodone HCl 5 MG Q6-PRN PRN 06/13 2315 AC 06/15 PO 0939 Potassium Chloride 40 MEQ ONCE ONE 06/15 0900 DC 06/15 PO 06/15 0901 0938 Sodium Chloride 1,000 ML .Q8H 06/13 2230 AC 06/15 IV 1012 Review of Systems Review of Systems: No rash. No tremor. No melena. No hemoptysis. All other systems were reviewed, and were noted to be negative. 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 , Age 83; Cause: Colon cancer. FATHER (DM). , Age 79; Cause: Myocardial infarct. Psychosocial History Where Do You Live? Home Who Do You Live With? spouse (Geroge) Services at Home: Nursing, Physical Therapy Primary Language: Mongolian Smoking Status: Never Smoked ETOH Use: denies use Illicit Drug Use: denies illicit drug use Living Will? no Power of Nozzle Cement Sprayer Helper/HCP? no Other Social History: . Lives with , Boni, & daughter, Alejandra. No cigarettes, EtOH, or drugs. Was independent until fx RUE post fall in 04/2016. Functional Ability ADLs Independent: dressing (until recent RUE fx), eating, toileting, bathing. 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 ECHO Results (as available) Date of last Echo 09/29/06 EF% 60 Exam & Diagnostic Data Vital Signs and I&O Vital Signs Date Time Temp Pulse Resp B/P Pulse O2 O2 Flow FiO2 Ox Delivery Rate 06/15 0958 Room Air 06/15 0800 99.5 96 20 110/60 93 06/15 0455 98.3 06/15 0200 99.6 06/15 0115 98.7 104 20 110/60 95 06/15 0028 100.9 06/14 1613 99.2 102 16 108/58 91 Room Air 06/14 1610 99.2 06/14 1502 101.6 104 18 110/84 93 Room Air 06/14 1254 Room Air 06/14 1220 101.6 100 18 109/53 100 Room Air 06/14 1217 101.6 100 18 109/53 92 Room Air Intake & Output 06/15 1600 06/15 0800 06/15 0000 06/14 1600 06/14 0700 06/14 0000 Intake Total 2200 1240 0 Output Total 400 500 250 Balance 1800 1240 -500 -250 Intake, IV 1000 1000 Intake, Oral 1200 240 0 Number 1 2 Bowel Movements Output, Urine 400 500 250 Patient 140 lb 130 lb Weight Physical Exam: Gen: The patient is in no acute distress HEENT: Normal nose, ears, and oropharynx. Pupils equal bilaterally. Conjunctiva normal. Neck: Supple with no JVD, no masses, and no thyromegaly Lungs: Clear to auscultation with normal respiratory effort Heart: RRR, S1, S2, no murmurs. 1+ peripheral edema, 2+ pulses in the lower extremities bilaterally Abdomen: Soft, nontender, no masses. No hepatomegaly. No splenomegaly Extremities: No clubbing or cyanosis. Normal muscle strength in the upper and lower extremities Skin: Normal skin turgor with no skin ulcers or lesions noted. Neuro: Cranial nerves intact. Sensation intact Psych: Alert and oriented 3 with appropriate affect Labs/Juan Results: Laboratory Tests 06/15 06/14 0615 1722 Chemistry Sodium (137 - 145 mmol/L) 134 L Potassium (3.5 - 5.1 mmol/L) 3.2 L Chloride (98 - 107 mmol/L) 104 Carbon Dioxide (22 - 30 mmol/L) 17 L Anion Gap (5 - 16) 12 BUN (7 - 17 mg/dL) 30 H Creatinine (0.5 - 1.0 mg/dL) 0.6 Estimated GFR (>60 ml/min) > 60 BUN/Creatinine Ratio (7 - 25 %) 50.0 H Total Bilirubin (0.2 - 1.3 mg/dL) 0.8 Direct Bilirubin (< 0.4 mg/dL) 0.4 AST (14 - 36 U/L) 103 H ALT (9 - 52 U/L) 458 H Alkaline Phosphatase (<127 U/L) 175 H Troponin I (< 0.11 ng/ml) < 0.01 Total Protein (6.3 - 8.2 g/dL) 4.2 L Albumin (3.5 - 5.0 g/dL) 2.0 L TSH (0.270 - 4.200 uIU/mL) 0.097 L Hematology CBC w Diff MAN DIFF ORDERED WBC (4.8 - 10.8 /CUMM) 10.1 RBC (4.20 - 5.40 /CUMM) 3.66 L Hgb (12.0 - 16.0 G/DL) 10.3 L Hct (37 - 47 %) 30.9 L MCV (81.0 - 99.0 FL) 84.3 MCH (27.0 - 31.0 PG) 28.2 RDW (11.5 - 14.5 %) 15.5 H Plt Count (130 - 400 /CUMM) 130 MPV (7.4 - 10.4 FL) 10.0 Gran % (42.2 - 75.2 %) 93.3 H Lymphocytes % (20.5 - 51.1 %) 4.1 L Monocytes % (1.7 - 9.3 %) 0.7 L Eosinophils % (0 - 5 %) 1.6 Basophils % (0.0 - 2.0 %) 0.3 Absolute Granulocytes (1.4 - 6.5 /CUMM) 9.4 H Segmented Neutrophils (42.2 - 75.2 %) 81 H Band Neutrophils (0.0 - 5.0 %) 14 H Absolute Lymphocytes (1.2 - 3.4 /CUMM) 0.4 L Lymphocytes (20.5 - 51.1 %) 2 L Monocytes (1.7 - 9.3 %) 1 L Absolute Monocytes (0.10 - 0.60 /CUMM) 0.1 L Eosinophils (0 - 5.0 %) 2 Absolute Eosinophils (0.0 - 0.7 /CUMM) 0.2 Absolute Basophils (0.0 - 0.2 /CUMM) 0 Platelet Estimate (ADEQUATE) VERIFIED BY SMEAR Poikilocytosis 1+ Anisocytosis 1+ PUBS MCHC (33.0 - 37.0 G/DL) 33.5 06/14 1130 Chemistry Sodium (137 - 145 mmol/L) 138 Potassium (3.5 - 5.1 mmol/L) 4.0 Chloride (98 - 107 mmol/L) 106 Carbon Dioxide (22 - 30 mmol/L) 19 L Anion Gap (5 - 16) 13 BUN (7 - 17 mg/dL) 27 H Creatinine (0.5 - 1.0 mg/dL) 0.7 Estimated GFR (>60 ml/min) > 60 BUN/Creatinine Ratio (7 - 25 %) 38.6 H Total Bilirubin (0.2 - 1.3 mg/dL) 1.0 Direct Bilirubin (< 0.4 mg/dL) 0.6 H AST (14 - 36 U/L) 404 H ALT (9 - 52 U/L) 745 H Alkaline Phosphatase (<127 U/L) 202 H Total Protein (6.3 - 8.2 g/dL) 4.7 L Albumin (3.5 - 5.0 g/dL) 2.4 L Coagulation PT (9.4 - 12.5 SEC) 21.7 H INR (0.90 - 1.19) 2.08 H Hematology CBC w Diff MAN DIFF ORDERED WBC (4.8 - 10.8 /CUMM) 12.2 H RBC (4.20 - 5.40 /CUMM) 3.75 L Hgb (12.0 - 16.0 G/DL) 10.7 L Hct (37 - 47 %) 31.9 L MCV (81.0 - 99.0 FL) 85.1 MCH (27.0 - 31.0 PG) 28.4 RDW (11.5 - 14.5 %) 15.0 H Plt Count (130 - 400 /CUMM) 152 MPV (7.4 - 10.4 FL) 8.7 Gran % (42.2 - 75.2 %) 95.9 H Lymphocytes % (20.5 - 51.1 %) 1.3 L Monocytes % (1.7 - 9.3 %) 1.1 L Eosinophils % (0 - 5 %) 1.7 Basophils % (0.0 - 2.0 %) 0 L Absolute Granulocytes (1.4 - 6.5 /CUMM) 11.7 H Segmented Neutrophils (42.2 - 75.2 %) 84 H Band Neutrophils (0.0 - 5.0 %) 11 H Absolute Lymphocytes (1.2 - 3.4 /CUMM) 0.2 L Monocytes (1.7 - 9.3 %) 2 Absolute Monocytes (0.10 - 0.60 /CUMM) 0.1 L Eosinophils (0 - 5.0 %) 3 Absolute Eosinophils (0.0 - 0.7 /CUMM) 0.2 Absolute Basophils (0.0 - 0.2 /CUMM) 0 Platelet Estimate (ADEQUATE) VERIFIED BY SMEAR Normocytic RBCs VERIFIED Normochromic RBCs VERIFIED PUBS MCHC (33.0 - 37.0 G/DL) 33.4 06/14 Chemistry Lactic Acid Cancelled Urines Urinalysis LIGHT H Urine Color (YEL,AMB,STR) YEL Urine Clarity (CLEAR) CLEAR Urine pH (5.0 - 8.0) 6.0 Ur Specific [place] (1.001 - 1.035) <= 1.005 Urine Protein (NEG,<30 MG/DL) 30 H Urine Ketones (NEG) NEG Urine Nitrite (NEG) NEG Urine Bilirubin (NEG) NEG Urine Urobilinogen (0.1 - 1.0 EU/dl) 1.0 Ur Leukocyte Esterase (NEG) SMALL H Ur Microscopic SEDIMENT EXAMINED Urine RBC (0 - 5 /HPF) RARE Urine WBC (0 - 2 /HPF) 15-25 H Ur Epithelial Cells (NONE,FEW) FEW Hyaline Casts (0/LPF) RARE H Urine Mucus (FEW,NONE) RARE Urine Hemoglobin (NEG) TRACE-LYSED Urine Glucose (N MG/DL) NEG 06/13 1800 Chemistry Sodium (137 - 145 mmol/L) 134 L Potassium (3.5 - 5.1 mmol/L) 4.7 Chloride (98 - 107 mmol/L) 96 L Carbon Dioxide (22 - 30 mmol/L) 25 Anion Gap (5 - 16) 12 BUN (7 - 17 mg/dL) 29 H Creatinine (0.5 - 1.0 mg/dL) 0.9 Estimated GFR (>60 ml/min) > 60 BUN/Creatinine Ratio (7 - 25 %) 32.2 H Glucose (65 - 99 mg/dL) 122 H Lactic Acid (0.7 - 2.1 mmol/L) 1.6 Calcium (8.4 - 10.2 mg/dL) 9.4 Magnesium (1.6 - 2.3 mg/dL) 1.7 Total Bilirubin (0.2 - 1.3 mg/dL) 1.8 H Direct Bilirubin (< 0.4 mg/dL) 0.7 H GGT (12 - 43 U/L) 147 H AST (14 - 36 U/L) 1649 H ALT (9 - 52 U/L) 1777 H Alkaline Phosphatase (<127 U/L) 266 H Creatine Kinase (30 - 135 U/L) 400 H Troponin I (< 0.11 ng/ml) < 0.01 Total Protein (6.3 - 8.2 g/dL) 6.5 Albumin (3.5 - 5.0 g/dL) 3.6 Globulin (1.9 - 4.2 gm/dL) 2.9 Albumin/Globulin Ratio (1.1 - 2.2 %) 1.2 Amylase (30 - 110 U/L) 124 H Lipase (23 - 300 U/L) 664 H Vitamin B12 (239 - 931 pg/mL) 915 25-OH Vitamin D Total (30 - 100 ng/ml) 21.5 L TSH (0.270 - 4.200 uIU/mL) 0.217 L Free T4 (0.78 - 2.44 ng/dL) 2.83 H Coagulation PT (9.4 - 12.5 SEC) 12.9 H INR (0.90 - 1.19) 1.23 H APTT (25 - 37 SEC) 29 Hematology CBC w Diff Pending WBC (4.8 - 10.8 /CUMM) 12.4 H RBC (4.20 - 5.40 /CUMM) 4.39 Hgb (12.0 - 16.0 G/DL) 12.4 Hct (37 - 47 %) 37.6 MCV (81.0 - 99.0 FL) 85.7 MCH (27.0 - 31.0 PG) 28.2 RDW (11.5 - 14.5 %) 15.2 H Plt Count (130 - 400 /CUMM) 207 MPV (7.4 - 10.4 FL) 9.0 Gran % (42.2 - 75.2 %) 96.7 H Lymphocytes % (20.5 - 51.1 %) 1.1 L Monocytes % (1.7 - 9.3 %) 1.4 L Eosinophils % (0 - 5 %) 0.8 Basophils % (0.0 - 2.0 %) 0 L Absolute Granulocytes (1.4 - 6.5 /CUMM) 12.0 H Absolute Lymphocytes (1.2 - 3.4 /CUMM) 0.1 L Absolute Monocytes (0.10 - 0.60 /CUMM) 0.2 Absolute Eosinophils (0.0 - 0.7 /CUMM) 0.1 Absolute Basophils (0.0 - 0.2 /CUMM) 0 PUBS MCHC (33.0 - 37.0 G/DL) 32.9 L Serology Hepatitis A IgM Ab (NONREACTIVE) NONREACTIVE Hep Bs Antigen (NONREACTIVE) NONREACTIVE Hep B Core IgM Ab Conf (NONREACTIVE) NONREACTIVE Hepatitis C Antibody (NONREACTIVE) NONREACTIVE Toxicology Acetaminophen (10.0 - 30.0 ug/mL) < 10.0 L Diagnostic Data EKG Results EKG tracing from June 14 is independently reviewed, and reveals sinus tachycardia at 102, low voltage in the frontal leads, borderline T-wave abnormality CXR Results Negative Other Results CT scan of the abdomen and pelvis: 1. No acute change of the abdomen or pelvis. Gallbladder absent. No bile duct dilatation. Pancreas is unremarkable. 2. Left UPJ obstruction. Renal ultrasound: 1. Right kidney is normal. 2. [id number] hydronephrosis of the left kidney. 3. Small, 3 mm calculus is seen in the expected location of the left ureterovesical junction. However, the left ureter is not dilated on the CT exam, which shows ureteropelvic junction obstruction. MRI abdomen: 1. The gallbladder is not visualized and is likely surgically absent. Remnant cystic duct is unremarkable. 2. No intrahepatic or extrahepatic ductal dilatation is seen. No evidence of choledocholithiasis. 3. Atrophic pancreas. 4. Chronic left UPJ obstruction with moderate left-sided hydronephrosis and a very large and tortuous appearance of the renal pelvis. 5. Small retrocardiac hiatal hernia. Ultrasound of the abdomen and pelvis: Visualized portal and hepatic veins are patent and demonstrate normal directionality of flow. Echocardiogram 01/09/2007: LVEF 5560 percent. Mild pulmonary hypertension. Trace pericardial effusion. Assessment/Plan Assessment/Plan Assessment: 1. Left UPJ obstruction 2. Possible cholangitis 3. Volume depletion, improved with IV fluids 4. Status post multiple falls and possible syncope, likely secondary to volume depletion and possible infection. No arrhythmias seen on telemetry. 5. Ruled out for mitral infarction with negative troponin 2 6. Hypokalemia Plan: * Echocardiogram * Agree with IV fluid * Antibiotics as per the medical service * Supplement potassium Consult Acknowledgment - Thank you for your consult request.
[2016-06-15 13:15] LABS: PT 20.2 SEC (9.4-12.5)
--- NOTE | 2016-06-15 14:32 | Cons- Infect Disease ---
General Information and HPI Consulting Request Date of Consult: 06/15/16 Requested By: SHARRON HURST MD Reason for Consult: Unexplained fever Source of Information: patient History of Present Illness: This is a 76-year-old woman with a history of frequent falls, which she attributes to unsteadiness, status post a comminuted intra-articular fracture of the distal right humerus 5 weeks prior to admission, treated conservatively with a splint, [facility] several days prior to admission because of another fall, resulting in a hematoma over her right buttock, admitted on June 13 after another fall at home. On arrival to the emergency she was afebrile with a blood pressure of 84/51. Laboratory data revealed a white blood cell count of 12,000, BUN/creatinine 29 and 0.9, amylase/lipase 124 and 664, bilirubin 1.8, alk phosphatase 266, AST/ALT 1649 and 1777, CPK 400, INR 1.23. Urinalysis rare RBC/15-20 WBCs. Chest x-ray was negative. CT of the abdomen and pelvis revealed a left UPJ obstruction with marked dilatation of the calyces and the renal pelvis. She was given 2 L of fluid with improvement in her blood pressure and was begun empirically on Ceftriaxone and Flagyl. Further workup has included a renal ultrasound, which revealed moderate to severe hydronephrosis of the left kidney with a small 3 millimeter calculus at the left UVJ, and an MRCP which revealed no intrahepatic or extra hepatic biliary ductal dilatation and no evidence of choledocholithiasis. On June 14 she spiked a fever to 101.6 and she was again febrile to 100.9 overnight. At present she offers no complaints. She specifically denies any nausea, vomiting or abdominal pain, though does report diarrhea, and she denies any dysuria or other urinary symptoms. She does report generalized fatigue. Allergies/Medications Allergies: Coded Allergies: amoxicillin (Mild, RASH 06/13/16) clarithromycin (From BIAXIN) (Mild, RASH 06/13/16) urokinase (Mild, RASH 06/13/16) Home Med List: Alendronate Sodium 70 MG TABLET 1 TAB PO QMON OP (Reported) in the morning, at least 30 minutes before the first food, beverage, or medication of the day Calcium Carbonate/Vitamin D3 (Caltrate 600 + D Tablet) 600 MG-800 TABLET 1 TAB PO DAILY SUPPLEMENT (Reported) Calcium Polycarbophil (Fibercon) 625 MG TABLET 625 MG PO D FIBER SUPPLEMENT ( Reported) Cholestyramine (With Sugar) (Cholestyramine Packet) 4 GRAM POWD.PACK 1 Scoopful PO BID LIVER-BILE DUCT (Reported) Clobetasol Propionate 0.05 % CREAM..G. 1 JACQUI TOP D ECZEMA (Reported) apply to affected area(s) Econazole (Econazole Nitrate) 1 % CREAM..G. 1 JACQUI TOP BID ECZEMA (Reported) apply to affected area(s) Escitalopram Oxalate 10 MG TABLET 1 TAB PO DAILY DEPRESSION (Reported) Levothyroxine Sodium 150 MCG TABLET 1 TAB PO DAILY THYROID (Reported) Multivitamin/Iron/Folic Acid (Centrum Complete Multivit Tab) 18 MG IRON-400 MCG TABLET 1 TAB PO D SUPPLEMEMT (Reported) Omeprazole 40 MG CAPSULE.DR 1 CAP PO DAILY GERD (Reported) Oxycodone HCl 5 MG TABLET 1 TAB PO 4XDAILY PRN PAIN (Reported) Simvastatin (Simvastatin*) 20 MG TABLET 1 TAB PO QPM HLD (Reported) Past History Travel History Traveled to [place] past 21 day No Medical History Blood Transfusion Hx: No Neurological: NONE EENT: NONE Cardiovascular: hyperlipidemia Respiratory: asthma, pneumonia, empyema Gastrointestinal: GERD Hepatic: NONE Renal: NONE Musculoskeletal: osteoporosis Psychiatric: depression Endocrine: hypothyroidism Blood Disorders: NONE Cancer(s): NONE 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 , Age 83; Cause: Colon cancer. FATHER (DM). , Age 79; Cause: Myocardial infarct. Psychosocial History Where Do You Live? Home Who Do You Live With? spouse (Geroge) Services at Home: Nursing, Physical Therapy Primary Language: Jamaican Smoking Status: Never Smoked ETOH Use: denies use Illicit Drug Use: denies illicit drug use Living Will? no Power of Estimate Clerk/HCP? no Other Social History: . Lives with , Boni, & daughter, Alejandra. No cigarettes, EtOH, or drugs. Was independent until fx RUE post fall in 04/2016. Functional Ability ADLs Independent: dressing (until recent RUE fx), eating, toileting, bathing. Ambulation: independent (until recent fall [employer]) IADLs Independent: shopping (until recent fall [employer]), housework, finances, food prep, telephone, transportation, medication admin. 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 ECHO Results (as available) Date of last Echo 09/29/06 EF% 60 Review of Systems Review of Systems All Other Systems: Reviewed and Negative Exam & Diagnostic Data Last 24 Hrs of Vital Signs/I&O Vital Signs Date Time Temp Pulse Resp B/P Pulse O2 O2 Flow FiO2 Ox Delivery Rate 06/15 0958 Room Air 06/15 0800 99.5 96 20 110/60 93 06/15 0455 98.3 06/15 0200 99.6 06/15 0115 98.7 104 20 110/60 95 06/15 0028 100.9 06/14 1613 99.2 102 16 108/58 91 Room Air 06/14 1610 99.2 06/14 1502 101.6 104 18 110/84 93 Room Air Intake & Output 06/15 1600 06/15 0800 06/15 0000 Intake Total 2200 1240 Output Total 400 Balance 1800 1240 Intake, IV 1000 1000 Intake, Oral 1200 240 Number 1 2 Bowel Movements Output, Urine 400 Physical Exam Other Physical Findings: She is awake and alert in no acute distress. MAXIMUM TEMPERATURE 101.6. Skin reveals a diffuse macular rash, nonpruritic, on her back, trunk and extremities. HEENT exam is negative. Neck is supple with no adenopathy. Lungs are clear. Heart regular rhythm with no murmur. Abdomen is soft, nontender with positive bowel sounds. Back no CVA tenderness; right buttock hematoma, slightly tender to palpation. Extremities no cyanosis, clubbing or edema. Neuro is without focality. Last 24 Hours of Lab Results: Laboratory Tests 06/15 06/15 06/14 1230 0615 1722 Chemistry Sodium (137 - 145 mmol/L) 134 L Potassium (3.5 - 5.1 mmol/L) 3.2 L Chloride (98 - 107 mmol/L) 104 Carbon Dioxide (22 - 30 mmol/L) 17 L Anion Gap (5 - 16) 12 BUN (7 - 17 mg/dL) 30 H Creatinine (0.5 - 1.0 mg/dL) 0.6 Estimated GFR (>60 ml/min) > 60 BUN/Creatinine Ratio (7 - 25 %) 50.0 H Total Bilirubin (0.2 - 1.3 mg/dL) 0.8 Direct Bilirubin (< 0.4 mg/dL) 0.4 AST (14 - 36 U/L) 103 H ALT (9 - 52 U/L) 458 H Alkaline Phosphatase (<127 U/L) 175 H Troponin I (< 0.11 ng/ml) < 0.01 Total Protein (6.3 - 8.2 g/dL) 4.2 L Albumin (3.5 - 5.0 g/dL) 2.0 L TSH (0.270 - 4.200 uIU/mL) 0.097 L Coagulation PT (9.4 - 12.5 SEC) 20.2 H INR (0.90 - 1.19) 1.94 H Hematology CBC w Diff MAN DIFF ORDERED WBC (4.8 - 10.8 /CUMM) 10.1 RBC (4.20 - 5.40 /CUMM) 3.66 L Hgb (12.0 - 16.0 G/DL) 10.3 L Hct (37 - 47 %) 30.9 L MCV (81.0 - 99.0 FL) 84.3 MCH (27.0 - 31.0 PG) 28.2 RDW (11.5 - 14.5 %) 15.5 H Plt Count (130 - 400 /CUMM) 130 MPV (7.4 - 10.4 FL) 10.0 Gran % (42.2 - 75.2 %) 93.3 H Lymphocytes % (20.5 - 51.1 %) 4.1 L Monocytes % (1.7 - 9.3 %) 0.7 L Eosinophils % (0 - 5 %) 1.6 Basophils % (0.0 - 2.0 %) 0.3 Absolute Granulocytes (1.4 - 6.5 /CUMM) 9.4 H Segmented Neutrophils (42.2 - 75.2 %) 81 H Band Neutrophils (0.0 - 5.0 %) 14 H Absolute Lymphocytes (1.2 - 3.4 /CUMM) 0.4 L Lymphocytes (20.5 - 51.1 %) 2 L Monocytes (1.7 - 9.3 %) 1 L Absolute Monocytes (0.10 - 0.60 /CUMM) 0.1 L Eosinophils (0 - 5.0 %) 2 Absolute Eosinophils (0.0 - 0.7 /CUMM) 0.2 Absolute Basophils (0.0 - 0.2 /CUMM) 0 Platelet Estimate (ADEQUATE) VERIFIED BY SMEAR Poikilocytosis 1+ Anisocytosis 1+ PUBS MCHC (33.0 - 37.0 G/DL) 33.5 Last 24 Hours of Juan Results: Blood cultures June 13 negative Urine culture June 14 negative Stool C. difficile June 14 negative Blood cultures June 15 pending Diagnostic Data Recent Imaging Findings: Chest x-ray, personally reviewed, negative. CT of the abdomen and pelvis revealed a left UPJ obstruction with marked dilatation of the calyces and the renal pelvis. Renal ultrasound revealed moderate to severe hydronephrosis of left kidney with a small 3 millimeter calculus at the left UVJ MRCP revealed no intrahepatic or extra hepatic biliary ductal dilatation and no evidence of choledocholithiasis. Abdominal pelvic Doppler negative Assessment/Plan Assessment/Plan Impression: This is a 76-year-old woman with a history of frequent falls, with a comminuted fracture of the distal humerus 5 weeks prior to admission and with a right buttock hematoma several days prior to admission, admitted on June 13 after another fall at home, found to be hypotensive, for which she required several liters of fluid, with markedly elevated liver enzymes, with the development of a fever on the day after admission with cultures so far negative. The etiology of her fever is unclear. A urinary source is possible, given the left UPJ obstruction, though this is apparently chronic and she has no left CVA pain or tenderness (her urine culture is negative, but this could reflect obstruction of the left kidney). A biliary source is possible, though she has no GI symptoms ( other than diarrhea) and her MRCP is negative. Drug fever must be considered, particularly with her macular rash, and, with a history of penicillin allergy, Ceftriaxone could be implicated. Her hypotension likely was secondary to dehydration, with the response of her blood pressure to fluids and with a decrease in her H&H and platelets suggesting hemoconcentration. Her elevated liver enzymes may have in part been secondary to trauma, with an elevated CPK also noted. Suggestion: 1. Follow-up recent cultures 2. Discontinue Ceftriaxone and Flagyl and follow off antibiotics Consult Acknowledgment - Thank you for your consult request.
[2016-06-15 16:01] VITALS: BP 122/62
[2016-06-16 00:53] VITALS: BP 96/58
--- NOTE | 2016-06-16 06:38 | PN- Housestaff ---
EYAL REAGAN,[facility] 06/16/16 0636: Subjective Follow-up For: Transaminitis Hypotension Recurrent falls Syncopal episodes Possible cholangitis Tele-Events Since Last Visit: Sinus Rhythm and Sinus Tachycardia 87-101 Overnight 79-89 PVC Subjective: Ms Llanos was seen and examined this morning. Resting comfortably in bed with family at bedside. Patient does state that she feels slightly better than she did over last 24 hours. Patient states that she is currently experiencing bilateral lower extremity knee pain. Knee pain on left greater than knee. Left knee pain rated a 9 out of 10 in severity. Described as a dull and throbbing pain. Pain is not worse with movement. Patient also continues to complain of cough. She states that the cough has been present since the time of admission. Denies any production of any sputum. Patient denies any fever, nausea, vomiting. She does report subjective chills overnight. Review of Systems Constitutional: Reports: see HPI. Denies: chills, diaphoresis, fever, malaise. Objective Last 24 Hrs of Vital Signs/I&O Vital Signs Date Time Temp Pulse Resp B/P Pulse O2 O2 Flow FiO2 Ox Delivery Rate 06/16 0053 99.4 92 20 96/58 96 Room Air 06/15 1601 99.8 95 20 122/62 97 Room Air 06/15 0958 Room Air Intake & Output 06/16 1600 06/16 0800 06/16 0000 Intake Total 875 1480 Output Total 200 125 Balance 675 1355 Intake, IV 875 1000 Intake, Oral 480 Output, Urine 200 125 Physical Exam General Appearance: Alert, Oriented X3, Cooperative Cardiovascular: Normal S1, Normal S2 Lungs: Expiratory Wheezing Abdomen: Normal Bowel Sounds, Soft, No Tenderness Neurological: Normal Speech Extremities: Edema 2+. No Pain with movement. , Surgical Scars Present on Right and Left Knee Current Medications: Current Medications Sig/Isela Start time Last Medication Dose Route Stop Time Status Admin Acetaminophen 650 MG ONCE ONE 06/15 1814 CAN PO 06/15 181 Acetaminophen 325 MG ONCE ONE 06/15 1814 DC 06/15 PO 06/15 181 180 Alendronate Sodium 70 MG QMON 06/19 0700 AC PO Benzonatate 100 MG TID 06/16 1000 AC PO Ceftriaxone Sodium 1,000 MG DAILY 06/14 1000 DC 06/15 IV 0940 Cholestyramine Resin 1 PAC TID 06/15 1600 AC 06/15 PO 2101 Cholestyramine Resin 1 PAC BID 06/15 1000 DC 06/15 PO 0939 Escitalopram Oxalate 10 MG DAILY 06/14 1000 AC 06/15 PO 0938 Levothyroxine Sodium 0.15 MG DAILY AC 06/14 0700 AC 06/16 PO 0709 Metronidazole 500 MG Q8H 06/14 0400 DC 06/15 N/A 1 UNIT IV 1231 Omeprazole 40 MG DAILY AC 06/15 0826 AC 06/16 PO 0753 Oxycodone HCl 5 MG Q6-PRN PRN 06/13 2315 AC 06/15 PO 1625 Patient Medication 1 ED .STK-MED ONE 06/15 1358 DC Teaching ED 06/15 1359 Potassium Chloride 40 MEQ ONCE ONE 06/15 0900 DC 06/15 PO 06/15 0901 0938 Sodium Chloride 1,000 ML .Q8H 06/13 2230 06/16 IV 0753 Last 24 Hrs of Lab/Juan Results Last 24 Hrs of Labs/Mics: Laboratory Tests 06/16/16 0620: Sodium Pending, Potassium Pending, Chloride Pending, Carbon Dioxide Pending, Anion Gap Pending, BUN Pending, Creatinine Pending, BUN/Creatinine Ratio Pending , Total Bilirubin Pending, Direct Bilirubin Pending, AST Pending, ALT Pending, Alkaline Phosphatase Pending, Total Protein Pending, Albumin Pending, PT 15.4 H , INR 1.47 H, CBC w Diff Pending, WBC Pending, RBC Pending, Hgb Pending, Hct Pending, MCV Pending, MCH Pending, RDW Pending, Plt Count Pending, MPV Pending, Gran % Pending, Lymphocytes % Pending, Monocytes % Pending, Eosinophils % Pending, Basophils % Pending, Absolute Granulocytes Pending, Absolute Lymphocytes Pending, Absolute Monocytes Pending, Absolute Eosinophils Pending, Absolute Basophils Pending, PUBS MCHC Pending 06/15/16 1230: PT 20.2 H, INR 1.94 H Assessment/Plan Assessment: 76-year-old female with PMH of osteoporosis, HLD, hypothyroidism, depression, presented for referral by her PCP, Dr. Khalil, for evaluation of recurrent fall and possible STR placement. In the ED, she was noted to be hypotensive at 84/51, for which her BP responded well to 2 L of NS. Her labs were found to be abnormal in the ED including AST 1649, ALT 1777, Alk phos 266, GGT 147, amylase 124, lipase 664. Although she denies any symptoms, and she had cholecyst[place] [address] was negative for stones, the hypotension is worrisome for impending acute cholangitis. She is admitted to and the following problems addressed: # Recurrent falls Patient gavino has had 4 falls recently, some of which were due to syncope. Thus she warrants further cardiac and neuro workup. Continue tele for close monitoring for arrythymia Check echocardiogram Consider neuro & cardiology consult Follow PT evaluation Follow Vit b12 - WNL Continue ashwin/vit D - Vit D low Continue multivitamin/iron/folate Continue oxycodone 5 mg q6p HOLD ibuprofen and Tylenol #Questionable atypical pneumonia Patient continues to cough Chest x-ray done the same did not show any evidence of consolidation and/or atelectasis. #URI symptoms Check for viral influenza, If positive patient may need to be started on Tamiflu. Isolation. Contact precautions. # Transaminitis, elevated lipase and amylase, hypotension, worrisome for impending acute cholangitis. Most likely cause is shock liver from hypotension on ED presentation. Given 1 time ceftriaxone and flagyl in the ED 2 L NS given in the ED LA 1.6 Follow MRCP Follow BC X 2, UC--> no growth after 2 days. Continue ceftriaxone and flagyl emprically---> stop antibiotics, lilkey contributing to drug fever patient likely has allergy to cephalosporins going to decrease fever and following off antibiotics. Continue IVF Hold statin, for now. Liver enzymes continue to be trending downwards ALT 277, AST within normal limits. INR 1.4 7 repeat INR in a.m. # Left UPJ obstruction on CT scan Urology consult - recommended outpatient follow up; however, previous records need to be obtained to confirm whether her hydronephrosis is acute or chronic. Follow Ucx Follow renal US - [id number] hydronephrosis of the left kidney and small , 3 mm calculus is seen in the expected location of the left ureterovesical junction. However, the left ureter is not dilated on the CT exam, which shows ureteropelvic junction obstruction. # Dehydration BUN 29H, cr 0.9 on admission Continue IVF Advance Diet to Full Liquids # Hypothyroidism Follow TSH, FT4 - T4 high, TSH low this admission Consider endo consult Continue levothyroxine 150 mcg # Diarrhea due to s/p Gall bladder removal. Continue cholestyramine 4 gm bid hold statin # Depression Continue escitalopram 10 mg # Osteoporosis Continue alendronate 70 q mon # Skin Continue clobetasol for vaginal Continue econazole for under breasts and inner thighs # GI Continue omeprazole 40 daily Diet: NPO DVT ppx: ALP S FULL CODE Problem List: 1. Recurrent falls 2. Knee pain 3. Generalized weakness 4. Leukocytosis 5. Hypotension 6. Transaminitis 7. Syncope Pain Ratin Pain Location: Left Knee Pain Goal: Remain pain free Pain Plan: Vicodin PRN Tomorrow's Labs & Rationales: LFT monitor hepatic function in response to acute shortness. BEP: Monitor creatinine and electrolytes. INR monitor hepatic function. SHARRON HURST MD 06/17/16 0757: Attending MD Review Statement Attending Statement Attending MD Statement: examined this patient, discuss w/resident/PA/LEAD MASSAGE THERAPIST, agreed w/resident/PA/LEAD MASSAGE THERAPIST, discussed with family, reviewed EMR data (avail), discussed with nursing, discussed with case mgmt, amended to note Attending Assessment/Plan: The patient was seen and discussed with house staff. Some mild cough. LFT's/INR trending down. Remains afebrile off of antibiotics. PT/OT input needed (Dr. Aguirre is her orthopedicst) regarding RUE fracture. CXR w/o infiltrate. Will do rapid flu.
[2016-06-16 07:59] LABS: ABSOLUTE BASOPHIL COUNT 0 /CUMM (0.0-0.2); ABSOLUTE EOSINOPHIL COUNT 0.4 /CUMM (0.0-0.7); ABSOLUTE GRANULOCYTE CT 7.1 /CUMM (1.4-6.5); ABSOLUTE LYMPH COUNT 0.4 /CUMM (1.2-3.4); ABSOLUTE MONOCYTE COUNT 0.2 /CUMM (0.10-0.60); BASOPHIL % 0.1 % (0.0-2.0); EOSINOPHIL % 4.5 % (0-5); MEAN CORPUSCULAR HGB CONC 33.4 G/DL (33.0-37.0); MEAN CORPUSCULAR VOLUME 83.9 FL (81.0-99.0); MEAN PLATELET VOLUME 10.4 FL (7.4-10.4); PLATELET COUNT 134 /CUMM (130-400); RBC DISTRIBUTION WIDTH 15.4 % (11.5-14.5); RED BLOOD CELL CT 3.93 /CUMM (4.20-5.40); WHITE BLOOD CELL COUNT 8.2 /CUMM (4.8-10.8)
[2016-06-16 08:17] LABS: PT 15.4 SEC (9.4-12.5)
[2016-06-16 08:26] VITALS: BP 150/71
--- NOTE | 2016-06-16 08:41 | PN- Gastroenterology ---
Assessment/Plan Assessment/Recommendations: 76-year-old female, fair historian, followed by numerous physicians, including Dr. Khalil for primary care, Dr. Lizarraga for surgery, Dr. Flores for pulmonary, Dr. Urrutia for cardiothoracic surgery, Dr. Rodriguez for APPRAISER ART, Dr. Fuentes for orthopedics , and Dr. Dunlap for urology, with numerous issues, including hyperlipidemia, DJD, asthma, interstitial lung disease, benign left lung surgery, PA, depression , hypothyroidism, osteoporosis, bilateral total knee replacement, ORIF left hip, lumbar spine fusion, history of colon adenomas, positive family history of colon cancer (patient's mother- onset 70's 77), chronic post cholecystectomy loose stools since gallbladder surgery 05/22/2006, stable on Questran 4g b.i.d. (not t.i.d., as per the patient), stable symptoms of reflux on Prilosec 20 mg daily, diverticulosis coli, chronic anemia, plus paraesophageal hernia repair with mesh placement and Socorro fundoplication 01/24/2007. She also had a subsequent incisional hernia repair plus correction of small bowel obstruction. She has had numerous GI testing done. 11/21/2005: Combined EGD and colonoscopy- large hiatal hernia, minimal esophagitis on biopsies, without Alanis's esophagus, HP-negative gastritis, small bowel biopsy- normal villi with extensive diverticulosis coli and normal colonic mucosa. 04/09/2006: tTG antibody- negative, antigliadin antibody- negative. I am not certain if a total serum IgA level was sent. 10/18/2006: CT scan of the chest without contrast- large hiatal hernia with questionable food in hiatal hernia pouch, obstruction versus mucosal mass. 11/29/2006: Barium swallow/upper GI series- large paraesophageal hiatal hernia with increased reflux, without obstruction. 12/27/2006: EGD with biopsies- minimal distal esophagitis with benign squamous mucosa and minimal reactive change on biopsies. Large paraesophageal hiatal hernia from 30-39 cm, without obstruction. Biopsy of hiatal hernia pouch showing mild gastritis, H. pylori- negative. 01/24/2007- Laparoscopic hiatal hernia repair with mesh placement and Socorro fundoplication. 02/06/2007: Repair of incisional hernia and small bowel obstruction. 10/15/2007: H. pylori antibody- negative. 03/14/2011: Followup colonoscopy to the terminal ileum with random biopsies of the terminal ileum, right colon, left colon, and rectum- unremarkable, intraoperative stool workup- negative, extensive left sided diverticula, mild internal hemorrhoids, and removal of 6 mm benign rectal tubular adenoma. 05/25/2015: Colonoscopy to cecum- 1. Extensive pandiverticulosis coli, left side greater than right. 2. Normal colonic mucosa to the cecum, without any recurrent polyps. (*Add high-fiber diet plus FiberCon 2 tabs daily. With past personal history of colon adenomas and positive family history of colon cancer, advise follow-up surveillance colonoscopy with the pediatric colonoscope in 5 years (i.e.- 2019). *The patient was subsequently found to have PA- 06/30/2015: IgA 121, tTG Ab- neg, DGP Ab- neg, nl SPEP/IPEP, elevated MMA 3900, B12 < 159, Fe 96, TIBC 323, Fe sat 29.7%, ferritin 92.5. 07/26/2015: + anti-IF Ab, +anti-PC Ab 61.4. 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 She has been seeing orthopedics for this. Her right arm is in a sling. She fell again on 06/12/2016 and developed a hematoma in her coccygeal region. She went to the [facility] ER 06/12/2016 to be evaluated for the above, was felt to be stable, and was sent home, where she lives with her , Boni, and her daughter, Alejandra. The patient fell again 2016, landing on her back. There was no apparent head trauma. She went her PMD , Dr. Khalil, 06/13/2016, and was sent to the [facility], where she arrived 06/13 at 4:23 p.m. Upon arrival, BP 84/51, P 100, R 20, T 98.2, O2 sat RA 94%. She subsequently spiked to 101.4. Her BP improved after IVF. She was suddenly found to have elevated transaminases (see below). Imaging studies did not show any acute GI process, however she had a left hydroureter, which was evaluated by urology and felt to be chronic in nature, without need for surgical intervention. The patient was empirically put on IV Ceftriaxone and Flagyl in the ER, and received Toradol, Tylenol, and morphine. *She was on outpatient Simvastatin, but this is old. Regards to the liver function tests, the patient denies any new medications except for Advil. She was only taking scant amounts of Tylenol with codeine, which have been stopped some time ago. She had been on Oxycodone, which was stopped as well. Her Tylenol level was negative. She denies any herbal medications or new medications otherwise. She denies a history of hepatitis, blood transfusions, IVDA, EtOH, or illicit drug use. She did have some subjective fevers, but no chills. She denied any symptoms of UTI or URI. There is no abdominal pain. She denies any nausea, vomiting, reflux, odynophagia, dysphagia, diarrhea, constipation, obstipation, rectal bleeding, melena, or hematemesis. She denies any confusion or increased abdominal girth. She has chronic pedal edema. She denies any jaundice, dark urine, light stools, pruritus, rashes or arthralgias. She had normal renal function on admission. There is no family history of inherited liver disease. There is a positive family history of colon cancer in the patient's mother, as above. She denied any chest pain, shortness breath, or LOC. She denied any abdominal trauma. *Note: 05/31/2016: *normal LFTs 06/13/2016: BC x 2- negative so far. 06/14/2016: U/A- clear, yellow, < 1.005, pH 6.0, 15-25 WBC, moderate bacteria, 30+ protein, otherwise negative; negative nitrite, small esterase. 06/14/2016: UC- negative. 06/14/2016: C. difficile- negative. 06/15/2016: BC x 2- pending. 06/13/2016: Admission labs- WBC 12.4 (97% gran, 12 gran Ab), H/H 12.4/37.6, normal MCV, PLT 207, PT 0.9, INR 1.23, PTT 29, glucose 122, BUN/Cr 29/0.9, GFR > 60, rheumatoid 34, potassium 4.7, bicarbonate 25, AG 12, lactate 1.6, amylase/ lipase 124/664, Mg 1.7, calcium 9.4, albumin 3.6, globulin 2.9, TBil 1.8, DBil 0.7, alk phos 266 (fluctuates chronically), AST 1649, ALT 1777, *elevated GGT 147, CK 400, troponin < .01; *Hep A Ab, Hep Bs Ag, Hep B core Ab, Hep C Ab- all negative, low TSH 0.217, elevated FT4 2.83, [Tylenol] < 10, B12 915, low Vit D 21.5. 06/13/2016: EKG- NSR @ 98, nl axis, nl intervals, early transition, PRWP, NSST antlat 06/13/2016: CXR- NAD 06/13/2016: CT ABD & PELVIS W IV CONTRAST- 1. No acute change of the abdomen or pelvis. Gallbladder absent. No bile duct dilatation. Pancreas is unremarkable. No liver lesion except tiny right hepatic cyst. Small right anterior mesenteric twist, without obstruction. No mesenteritis. Small HH. AP not seen. Extensive sigmoid diverticulosis without diverticulitis. No abdominal wall hernia. Fusion L4/L5. DJD. Orthopedic pins left femur. 2. 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 *It is difficult to tell at the moment whether the patient's LFTs are reactive in nature versus primary in nature. She was hypotensive. *She certainly could have shock liver (ischemic hepatitis). She was febrile. The above hypotension could be reactive in nature to some non-GI source of sepsis. Having stated that , cholangitis should be excluded, although her LFTs are predominantly in a transaminitis pattern more so than an obstructive pattern. She is post-CCKY. There is a hematoma in the coccygeal region with multiple falls. Some of the transaminase elevation could be from skeletal muscle. Her CK is elevated with negative troponin. Admission CT abdomen and pelvis with IV contrast does not show any acute GI process. The left hydroureter is chronic in nature and felt not to need instrumentation, as per urology. There was no gross evidence of ischemic bowel on the admission CT, although it is possible she could develop bowel/mesenteric ischemia secondary to the hypotension, which has resolved. The lipase elevation is minimal. *I do not think she has true pancreatitis. She has a benign abdominal exam. Her pancreas looks normal on the IV contrast CT. Hepatitis A, B, and C serologies are negative. Doubt EBV/CMV hepatitis, but possible. Doubt HV/PV thrombosis. Tylenol levels are negative. 06/14/2016: RENAL SONO- 1. Right kidney is normal. 2. Ojlrhbyq-li-flhmhr hydronephrosis of the left kidney. 3. Small, 3 mm calculus is seen in the expected location of the left ureterovesical junction. However, the left ureter is not dilated on the CT exam, which shows ureteropelvic junction obstruction. 06/14/2016: MRCP- 1. The gallbladder is not visualized and is likely surgically absent. Remnant cystic duct is unremarkable. 2. No intrahepatic or extrahepatic ductal dilatation is seen. No evidence of choledocholithiasis. 3. Atrophic pancreas. 4. Chronic left UPJ obstruction with moderate left-sided hydronephrosis and a very large and tortuous appearance of the renal pelvis. 5. Small retrocardiac hiatal hernia. 06/14/2016: US-ABD/PELV ORGAN DOPPLER- Visualized portal and hepatic veins are patent and demonstrate normal directionality of flow. *As of 06/15/2016, the patient was slowly defervescing on IV Ceftriaxone and Flagyl. Tm 101.6 on 06/14/2016. She was no longer hypotensive. Her liver function tests, especially her transaminases, were declining. She was mildly anemic, although admission CT did not show any retroperitoneal bleed and she was guaiac negative on admission. Most likely, she was hemoconcentrated on admission. INR was elevated, post presumed shock liver/ischemic hepatitis (also on antibiotics). 06/14/2016: MRCP- without obstruction or choledocholithiasis, post CCKY. 06/14/2016: Doppler- patent PV/HV. 06/14/2016: Renal sono- moderate to severe chronic left-sided hydronephrosis, 3 mm stone at the left UVJ, although no dilated ureter. The patient had tolerated clears po. She denied any chills, nausea, vomiting, abdominal pain, jaundice, dark urine, light stools , pruritus, confusion, chills, chest pain, or shortness of breath. She has a mild dry cough. She had mild diarrhea, most likely due to her Questran being stopped on admission, on this for chronic post-CCKY loose stools. Cultures remained negative so far. She did not seem to have cholangitis clinically, nor by imaging studies. *As of 06/16/2016, the patient remains completely asymptomatic from a GI/liver perspective. She is tolerating solids. Question was resumed 06/15/2016 for her history of post-CCKY chronic loose stools, and the patient no longer has diarrhea. 06/14/2016: C. difficile negative. Cultures remain negative. Patient remains hemodynamically stable. She is essentially afebrile with Tm 99.8. The patient was seen by both infectious disease & cardiology on 06/15/2016. IV Ceftriaxone & Flagyl were stopped per ID on 06/15/2016. Her leukocytosis has resolved. INR continues to normalize. Liver function tests are markedly improved, although the patient is malnourished. Her only complaint are a dry cough with O2 sat RA 95%. She also notes her RUE which is immobilized in a sling is more swollen, although previous 05/31/2016: Doppler RUE- negative for DVT. She is starting to receive PT. *The patient's LFTs, which are markedly improved, appeared to be reactive in nature from some non-GI process, most likely ischemic hepatitis, from hypotension, possibly with a component of skeletal muscle inflammation, post multiple falls. SUGGEST: Advance diet as tolerated. IVF. Follow-up cultures Continue patient's outpatient dose of Questran 4g po BID 1/2 hour before breakfast and supper.* Ceftriaxone and Flagyl stopped 06/15/2016, as per ID. *Serial LFTs and *PT with INR (probable shock liver). *Check EBV/CMV/Aldolase. As alkaline phosphatase appears to be intermittently chronically elevated with elevated GGT, consider checking HARSH/AMA. *Continue to hold Simvastatin. *Consider checking urine for myoglobin (r/o rhabdomyolysis). Avoid hepatotoxins & NSAIDS. Keep Tylenol use to a minimum. May continue PPI. Workup of falls & tx of mild hyper T4, etc., as per medical team. Urology, cardiology & ID are on board. The above was again discussed with the patient, her , Boni, & her daughter, Alejandra, in detail, as per patient request, upon admission & again on 06/16/2016. The above was also discussed with the medical house staff. As an aside, by dates, the patient is due for follow surveillance colonoscopy with the pediatric colonoscope in 05/2020, regarding her history of adenomas. *Consider repeat CXR to rule out atypical pneumonia, with dry cough. Physical therapy as per medical team.*Further inpatient GI follow up as needed. Problem List: 1. Transaminitis 2. Ischemic hepatitis 3. Hypotension 4. Malnutrition 5. Fever 6. Leukocytosis Subjective Subjective: *As of 06/16/2016, the patient remains completely asymptomatic from a GI/liver perspective. She is tolerating solids. Question was resumed 06/15/2016 for her history of post-CCKY chronic loose stools, and the patient no longer has diarrhea. 06/14/2016: C. difficile negative. Cultures remain negative. Patient remains hemodynamically stable. She is essentially afebrile with Tm 99.8. The patient was seen by both infectious disease & cardiology on 06/15/2016. IV Ceftriaxone & Flagyl were stopped per ID on 06/15/2016. Her leukocytosis has resolved. INR continues to normalize. Liver function tests are markedly improved, although the patient is malnourished. Her only complaint are a dry cough with O2 sat RA 95%. She also notes her RUE which is immobilized in a sling is more swollen, although previous 05/31/2016: Doppler RUE- negative for DVT. She is starting to receive PT. Review of Systems: Full 14 point ROS otherwise noncontributory, and as above. Review of Systems Constitutional: Reports: weakness (fever resolved). Denies: chills, diaphoresis, malaise, unexplained weight loss. EENTM: Denies: blurred vision, double vision, visual changes, eye pain, eye drainage, eye tearing, icterus, ear discharge, ear pain, ear redness, hearing changes, nasal congestion, epistaxis, nasal pain, throat pain, throat swelling, mouth pain, tooth pain. Cardiovascular: Reports: edema RUE, peripheral edema (chronic). Denies: chest pain, orthopena, palpitations, syncope. Respiratory: Reports: mild dry cough Denies: hemoptysis, orthopnea, short of breath, sputum production, stridor, wheezing. GI: Reports: diarrhea- gone since adding Questran (post-CCKY) Denies: abdominal pain, bloating, constipation, distention, bowel incontinence, melena, nausea, bloody stool, changes in stool, vomiting, steatorrhea. Genitourinary: Denies: discharge, dysuria, frequency, hematuria, hesitation, nocturia, pain, urgency. Musculoskeletal: Reports: back pain (falls with coccygeal hematoma), joint pain (DJD), neck pain (chronic). Denies: gout, joint swelling, muscle pain, muscle stiffness. Skin: Reports: change in skin color (coccygeal hematoma post fall). Denies: cysts, change in hair/nails, dryness, erythema, jaundice, lesions, lymphangitis, lumps, moles, rash. Neurological/Psychological: Reports: depressed, emotional problems, weakness. Denies: anxiety, ataxia, cognitive dysfunction, confusion, dementia, headache, numbness, paresthesia, pre-existing deficit, petit mal seizures, tingling, tremors, tonic-clonic seizures, unable to move lower ext, unable to move upper ext. Hematologic/Endocrine: Reports: bruising (post mult falls). Denies: bleeding, polyuria, polydipsia. Immunologic/Allergic: Denies: splenectomy, HIV/AIDS, lymphadenopathy. All Other Systems: Reviewed and Negative Objective Vital Signs and I&Os Vital Signs Date Time Temp Pulse Resp B/P Pulse O2 O2 Flow FiO2 Ox Delivery Rate 06/16 0826 99.3 84 17 150/71 95 Room Air 06/16 0053 99.4 92 20 96/58 96 Room Air 06/15 1601 99.8 95 20 122/62 97 Room Air 06/15 0958 Room Air Intake & Output 06/16 1600 06/16 0400 06/15 1600 06/15 0400 06/14 1600 06/14 0400 Intake Total 875 1480 3780 1240 0 Output Total 200 125 775 750 Balance 675 1355 3005 1240 -750 Intake, IV 875 1000 2100 1000 Intake, Oral 480 1680 240 0 Number 3 2 Bowel Movements Output, Urine 200 125 775 750 Patient 140 lb 140 lb Weight Physical Exam: Well-developed, well-nourished, elderly female, in no apparent distress. Sclera anicteric. Conjunctiva pink. Oropharynx clear. No oral thrush. No apthous ulcers. There is no adenopathy, thyromegaly, or JVD. No peripheral stigmata of inflammatory bowel disease or chronic liver disease on exam. No spiders on the anterior chest wall. No CVA tenderness. T-L scoliosis. Lungs: clear to A&P, with slight decreased BS at the bases B/L. Heart exam: regular rate rhythm, S1 and S2, without any murmur. Breast and pelvic exams: deferred for environmental health and safety intern. Abdominal exam: normal bowel sounds, soft belly, nontender, without guarding or rebound. Post CCKY. No mass. No organomegaly. No fluid shift. No pulsatile mass. Digital rectal exam by myself 06/14/16: brown stool, OB negative, normal sphincter tone, no mass. Hematoma in coccygeal region. No decubitus ulcer. Multiple scars post LS spine surgery, B/L TKR. Extremities: without cyanosis or clubbing. > 1+ pedal edema B/ L. No palpable cords. RUE remains in sling & is edematous without palpable cords. Radial pulse intact. Distal pulses 2+ bilaterally. DTRs 2+ bilaterally. No Dupuytren's contracture. No palmar erythema. Alert and oriented x 3. No tremor. No asterixis. Current Medications: Current Medications Sig/Isela Start time Last Medication Dose Route Stop Time Status Admin Acetaminophen 650 MG ONCE ONE 06/15 1815 CAN PO 06/15 1816 Acetaminophen 325 MG ONCE ONE 06/15 1815 DC 06/15 PO 06/15 1816 1807 Alendronate Sodium 70 MG QMON 06/19 0700 AC PO Benzonatate 100 MG TID 06/16 1000 AC PO Ceftriaxone Sodium 1,000 MG DAILY 06/14 1000 DC 06/15 IV 0940 Cholestyramine Resin 1 PAC TID 06/15 1600 AC 06/15 PO 2101 Cholestyramine Resin 1 PAC BID 06/15 1000 DC 06/15 PO 0939 Escitalopram Oxalate 10 MG DAILY 06/14 1000 AC 06/15 PO 0938 Levothyroxine Sodium 0.15 MG DAILY AC 06/14 0700 AC 06/16 PO 0709 Metronidazole 500 MG Q8H 06/14 0400 DC 06/15 N/A 1 UNIT IV 1231 Omeprazole 40 MG DAILY AC 06/15 0826 AC 06/16 PO 0753 Oxycodone HCl 5 MG Q6-PRN PRN 06/13 2315 AC 06/15 PO 1625 Patient Medication 1 ED .STK-MED ONE 06/15 1358 [facility] ED 06/15 1359 Sodium Chloride 1,000 ML .Q8H 06/13 2230 AC 06/16 IV 0753 Results Pertinent Lab Results: Laboratory Tests 06/16 06/15 0620 1230 Chemistry Sodium (137 - 145 mmol/L) 132 L Potassium (3.5 - 5.1 mmol/L) 3.8 Chloride (98 - 107 mmol/L) 106 Carbon Dioxide (22 - 30 mmol/L) 18 L Anion Gap (5 - 16) 9 BUN (7 - 17 mg/dL) 23 H Creatinine (0.5 - 1.0 mg/dL) 0.6 Estimated GFR (>60 ml/min) > 60 BUN/Creatinine Ratio (7 - 25 %) 38.3 H Total Bilirubin (0.2 - 1.3 mg/dL) 0.6 Direct Bilirubin (< 0.4 mg/dL) 0.3 AST (14 - 36 U/L) 26 ALT (9 - 52 U/L) 277 H Alkaline Phosphatase (<127 U/L) 136 H Total Protein (6.3 - 8.2 g/dL) 4.0 L Albumin (3.5 - 5.0 g/dL) 1.9 L Coagulation PT (9.4 - 12.5 SEC) 15.4 H 20.2 H INR (0.90 - 1.19) 1.47 H 1.94 H Hematology CBC w Diff NO MAN DIFF REQ WBC (4.8 - 10.8 /CUMM) 8.2 RBC (4.20 - 5.40 /CUMM) 3.93 L Hgb (12.0 - 16.0 G/DL) 11.0 L Hct (37 - 47 %) 33.0 L MCV (81.0 - 99.0 FL) 83.9 MCH (27.0 - 31.0 PG) 28.0 RDW (11.5 - 14.5 %) 15.4 H Plt Count (130 - 400 /CUMM) 134 MPV (7.4 - 10.4 FL) 10.4 Gran % (42.2 - 75.2 %) 87.4 H Lymphocytes % (20.5 - 51.1 %) 5.1 L Monocytes % (1.7 - 9.3 %) 2.9 Eosinophils % (0 - 5 %) 4.5 Basophils % (0.0 - 2.0 %) 0.1 Absolute Granulocytes (1.4 - 6.5 /CUMM) 7.1 H Absolute Lymphocytes (1.2 - 3.4 /CUMM) 0.4 L Absolute Monocytes (0.10 - 0.60 /CUMM) 0.2 Absolute Eosinophils (0.0 - 0.7 /CUMM) 0.4 Absolute Basophils (0.0 - 0.2 /CUMM) 0 PUBS MCHC (33.0 - 37.0 G/DL) 33.4 06/15 06/14 0615 1722 Chemistry Sodium (137 - 145 mmol/L) 134 L Potassium (3.5 - 5.1 mmol/L) 3.2 L Chloride (98 - 107 mmol/L) 104 Carbon Dioxide (22 - 30 mmol/L) 17 L Anion Gap (5 - 16) 12 BUN (7 - 17 mg/dL) 30 H Creatinine (0.5 - 1.0 mg/dL) 0.6 Estimated GFR (>60 ml/min) > 60 BUN/Creatinine Ratio (7 - 25 %) 50.0 H Total Bilirubin (0.2 - 1.3 mg/dL) 0.8 Direct Bilirubin (< 0.4 mg/dL) 0.4 AST (14 - 36 U/L) 103 H ALT (9 - 52 U/L) 458 H Alkaline Phosphatase (<127 U/L) 175 H Troponin I (< 0.11 ng/ml) < 0.01 Total Protein (6.3 - 8.2 g/dL) 4.2 L Albumin (3.5 - 5.0 g/dL) 2.0 L TSH (0.270 - 4.200 uIU/mL) 0.097 L Hematology CBC w Diff MAN DIFF ORDERED WBC (4.8 - 10.8 /CUMM) 10.1 RBC (4.20 - 5.40 /CUMM) 3.66 L Hgb (12.0 - 16.0 G/DL) 10.3 L Hct (37 - 47 %) 30.9 L MCV (81.0 - 99.0 FL) 84.3 MCH (27.0 - 31.0 PG) 28.2 RDW (11.5 - 14.5 %) 15.5 H Plt Count (130 - 400 /CUMM) 130 MPV (7.4 - 10.4 FL) 10.0 Gran % (42.2 - 75.2 %) 93.3 H Lymphocytes % (20.5 - 51.1 %) 4.1 L Monocytes % (1.7 - 9.3 %) 0.7 L Eosinophils % (0 - 5 %) 1.6 Basophils % (0.0 - 2.0 %) 0.3 Absolute Granulocytes (1.4 - 6.5 /CUMM) 9.4 H Segmented Neutrophils (42.2 - 75.2 %) 81 H Band Neutrophils (0.0 - 5.0 %) 14 H Absolute Lymphocytes (1.2 - 3.4 /CUMM) 0.4 L Lymphocytes (20.5 - 51.1 %) 2 L Monocytes (1.7 - 9.3 %) 1 L Absolute Monocytes (0.10 - 0.60 /CUMM) 0.1 L Eosinophils (0 - 5.0 %) 2 Absolute Eosinophils (0.0 - 0.7 /CUMM) 0.2 Absolute Basophils (0.0 - 0.2 /CUMM) 0 Platelet Estimate (ADEQUATE) VERIFIED BY SMEAR Poikilocytosis 1+ Anisocytosis 1+ PUBS MCHC (33.0 - 37.0 G/DL) 33.5 06/14 1130 Chemistry Sodium (137 - 145 mmol/L) 138 Potassium (3.5 - 5.1 mmol/L) 4.0 Chloride (98 - 107 mmol/L) 106 Carbon Dioxide (22 - 30 mmol/L) 19 L Anion Gap (5 - 16) 13 BUN (7 - 17 mg/dL) 27 H Creatinine (0.5 - 1.0 mg/dL) 0.7 Estimated GFR (>60 ml/min) > 60 BUN/Creatinine Ratio (7 - 25 %) 38.6 H Total Bilirubin (0.2 - 1.3 mg/dL) 1.0 Direct Bilirubin (< 0.4 mg/dL) 0.6 H AST (14 - 36 U/L) 404 H ALT (9 - 52 U/L) 745 H Alkaline Phosphatase (<127 U/L) 202 H Total Protein (6.3 - 8.2 g/dL) 4.7 L Albumin (3.5 - 5.0 g/dL) 2.4 L Coagulation PT (9.4 - 12.5 SEC) 21.7 H INR (0.90 - 1.19) 2.08 H Hematology CBC w Diff MAN DIFF ORDERED WBC (4.8 - 10.8 /CUMM) 12.2 H RBC (4.20 - 5.40 /CUMM) 3.75 L Hgb (12.0 - 16.0 G/DL) 10.7 L Hct (37 - 47 %) 31.9 L MCV (81.0 - 99.0 FL) 85.1 MCH (27.0 - 31.0 PG) 28.4 RDW (11.5 - 14.5 %) 15.0 H Plt Count (130 - 400 /CUMM) 152 MPV (7.4 - 10.4 FL) 8.7 Gran % (42.2 - 75.2 %) 95.9 H Lymphocytes % (20.5 - 51.1 %) 1.3 L Monocytes % (1.7 - 9.3 %) 1.1 L Eosinophils % (0 - 5 %) 1.7 Basophils % (0.0 - 2.0 %) 0 L Absolute Granulocytes (1.4 - 6.5 /CUMM) 11.7 H Segmented Neutrophils (42.2 - 75.2 %) 84 H Band Neutrophils (0.0 - 5.0 %) 11 H Absolute Lymphocytes (1.2 - 3.4 /CUMM) 0.2 L Monocytes (1.7 - 9.3 %) 2 Absolute Monocytes (0.10 - 0.60 /CUMM) 0.1 L Eosinophils (0 - 5.0 %) 3 Absolute Eosinophils (0.0 - 0.7 /CUMM) 0.2 Absolute Basophils (0.0 - 0.2 /CUMM) 0 Platelet Estimate (ADEQUATE) VERIFIED BY SMEAR Normocytic RBCs VERIFIED Normochromic RBCs VERIFIED PUBS MCHC (33.0 - 37.0 G/DL) 33.4 06/14 Chemistry Lactic Acid Cancelled Urines Urinalysis LIGHT H Urine Color (YEL,AMB,STR) YEL Urine Clarity (CLEAR) CLEAR Urine pH (5.0 - 8.0) 6.0 Ur Specific [place] (1.001 - 1.035) <= 1.005 Urine Protein (NEG,<30 MG/DL) 30 H Urine Ketones (NEG) NEG Urine Nitrite (NEG) NEG Urine Bilirubin (NEG) NEG Urine Urobilinogen (0.1 - 1.0 EU/dl) 1.0 Ur Leukocyte Esterase (NEG) SMALL H Ur Microscopic SEDIMENT EXAMINED Urine RBC (0 - 5 /HPF) RARE Urine WBC (0 - 2 /HPF) 15-25 H Ur Epithelial Cells (NONE,FEW) FEW Hyaline Casts (0/LPF) RARE H Urine Mucus (FEW,NONE) RARE Urine Hemoglobin (NEG) TRACE-LYSED Urine Glucose (N MG/DL) NEG 06/13 1800 Chemistry Sodium (137 - 145 mmol/L) 134 L Potassium (3.5 - 5.1 mmol/L) 4.7 Chloride (98 - 107 mmol/L) 96 L Carbon Dioxide (22 - 30 mmol/L) 25 Anion Gap (5 - 16) 12 BUN (7 - 17 mg/dL) 29 H Creatinine (0.5 - 1.0 mg/dL) 0.9 Estimated GFR (>60 ml/min) > 60 BUN/Creatinine Ratio (7 - 25 %) 32.2 H Glucose (65 - 99 mg/dL) 122 H Lactic Acid (0.7 - 2.1 mmol/L) 1.6 Calcium (8.4 - 10.2 mg/dL) 9.4 Magnesium (1.6 - 2.3 mg/dL) 1.7 Total Bilirubin (0.2 - 1.3 mg/dL) 1.8 H Direct Bilirubin (< 0.4 mg/dL) 0.7 H GGT (12 - 43 U/L) 147 H AST (14 - 36 U/L) 1649 H ALT (9 - 52 U/L) 1777 H Alkaline Phosphatase (<127 U/L) 266 H Creatine Kinase (30 - 135 U/L) 400 H Troponin I (< 0.11 ng/ml) < 0.01 Total Protein (6.3 - 8.2 g/dL) 6.5 Albumin (3.5 - 5.0 g/dL) 3.6 Globulin (1.9 - 4.2 gm/dL) 2.9 Albumin/Globulin Ratio (1.1 - 2.2 %) 1.2 Amylase (30 - 110 U/L) 124 H Lipase (23 - 300 U/L) 664 H Vitamin B12 (239 - 931 pg/mL) 915 25-OH Vitamin D Total (30 - 100 ng/ml) 21.5 L TSH (0.270 - 4.200 uIU/mL) 0.217 L Free T4 (0.78 - 2.44 ng/dL) 2.83 H Coagulation PT (9.4 - 12.5 SEC) 12.9 H INR (0.90 - 1.19) 1.23 H APTT (25 - 37 SEC) 29 Hematology CBC w Diff Pending WBC (4.8 - 10.8 /CUMM) 12.4 H RBC (4.20 - 5.40 /CUMM) 4.39 Hgb (12.0 - 16.0 G/DL) 12.4 Hct (37 - 47 %) 37.6 MCV (81.0 - 99.0 FL) 85.7 MCH (27.0 - 31.0 PG) 28.2 RDW (11.5 - 14.5 %) 15.2 H Plt Count (130 - 400 /CUMM) 207 MPV (7.4 - 10.4 FL) 9.0 Gran % (42.2 - 75.2 %) 96.7 H Lymphocytes % (20.5 - 51.1 %) 1.1 L Monocytes % (1.7 - 9.3 %) 1.4 L Eosinophils % (0 - 5 %) 0.8 Basophils % (0.0 - 2.0 %) 0 L Absolute Granulocytes (1.4 - 6.5 /CUMM) 12.0 H Absolute Lymphocytes (1.2 - 3.4 /CUMM) 0.1 L Absolute Monocytes (0.10 - 0.60 /CUMM) 0.2 Absolute Eosinophils (0.0 - 0.7 /CUMM) 0.1 Absolute Basophils (0.0 - 0.2 /CUMM) 0 PUBS MCHC (33.0 - 37.0 G/DL) 32.9 L Serology Hepatitis A IgM Ab (NONREACTIVE) NONREACTIVE Hep Bs Antigen (NONREACTIVE) NONREACTIVE Hep B Core IgM Ab Conf (NONREACTIVE) NONREACTIVE Hepatitis C Antibody (NONREACTIVE) NONREACTIVE Toxicology Acetaminophen (10.0 - 30.0 ug/mL) < 10.0 L Imaging/Other Studies: 06/13/2016: EKG- NSR @ 98, nl axis, nl intervals, early transition, PRWP, NSST antlat 06/13/2016: CXR- NAD 06/13/2016: CT ABD & PELVIS W IV CONTRAST- 1. No acute change of the abdomen or pelvis. Gallbladder absent. No bile duct dilatation. Pancreas is unremarkable. No liver lesion except tiny right hepatic cyst. Small right anterior mesenteric twist, without obstruction. No mesenteritis. Small HH. AP not seen. Extensive sigmoid diverticulosis without diverticulitis. No abdominal wall hernia. Fusion L4/L5. DJD. Orthopedic pins left femur. 2. 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 06/14/2016: RENAL SONO- 1. Right kidney is normal. 2. Vnqjmwmv-qj-ewctwy hydronephrosis of the left kidney. 3. Small, 3 mm calculus is seen in the expected location of the left ureterovesical junction. However, the left ureter is not dilated on the CT exam, which shows ureteropelvic junction obstruction. 06/14/2016: MRCP- 1. The gallbladder is not visualized and is likely surgically absent. Remnant cystic duct is unremarkable. 2. No intrahepatic or extrahepatic ductal dilatation is seen. No evidence of choledocholithiasis. 3. Atrophic pancreas. 4. Chronic left UPJ obstruction with moderate left-sided hydronephrosis and a very large and tortuous appearance of the renal pelvis. 5. Small retrocardiac hiatal hernia. 06/14/2016: US-ABD/PELV ORGAN DOPPLER- Visualized portal and hepatic veins are patent and demonstrate normal directionality of flow.
[2016-06-16 09:01] LABS: GRANULOCYTE % 87.4 % (42.2-75.2)
--- NOTE | 2016-06-16 10:12 | RADIOLOGY REPORT ---
EXAMINATION: XR PORTABLE CHEST CLINICAL INFORMATION: Dyspnea and cough. COMPARISON: 02/04/2007 TECHNIQUE: Portable view of the chest was obtained. FINDINGS: The heart and pulmonary vessels appear normal. Atelectasis is present at the left lung base. A large amount of wires overlie the lower right chest which limits evaluation. No CHF infiltrates or lung masses are seen. IMPRESSION: Limited study but no acute intrathoracic disease.
--- NOTE | 2016-06-16 10:29 | NUR ---
Physical Therapy. Pt unavailable for PT treatment 2/2 xray and pending echo requiring pt to be in bed. Discussed w/ pt and nsg that PT will f/u as appropriate once pt is able to get OOB.
--- NOTE | 2016-06-16 11:19 | NUR ---
PHYSICAL THERAPY: Patient still awaiting echo-cardio. and needs to remain supine in bed to perform, per RN. P.T. will continue to f/u as appropriate.
--- NOTE | 2016-06-16 12:06 | Discharge Summary ---
Visit Information Visit Dates Admission Date: 06/13/16 Discharge Date: 06/21/16 Hospital Course Course Attending Physician: SHARRON HURST MD Primary Care Physician: PARTH YOUNG MD Hospital Course: 76-year-old female with PMH of osteoporosis, HLD, hypothyroidism, depression, presented for referral by her PCP, Dr. Young, for evaluation of recurrent fall and possible STR placement. In the ED, she was noted to be hypotensive at 84/51, for which her BP responded well to 2 L of NS. Her labs were found to be abnormal in the ED including AST 1649, ALT 1777, Alk phos 266, GGT 147, amylase 124, lipase 664. Although she denies any symptoms, and she had cholecystectomy in [address] was negative for stones, the hypotension is worrisome for impending acute cholangitis. She is admitted to general floor initially transferred to telemetry for further workup of the falls and then subsequently transferred back to general floor and the following problems addressed: # Recurrent falls with hand fracture/spinal stenosis Patient reported of having frequent falls leading to injury of the right elbow recently. Cardiology consultation ruled out any arrhythmias, EF was within normal limits. Neurology workup did not reveal any acute infarct in the brain CT however cervical CT of the spine showed increase in the pannus at the level of C1-C2 posteriorly and there may be mass effect on the cervical spinal cord. Per neurology consultation, MRI of the cervical spine was obtained which showed "advanced arthrosis of the atlantodental joint with a large articular pannus causing elevation of the tectorial membrane and significant AP narrowing of the canal at the level of the craniocervical junction. 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 Neurosurgery was consulted and they recommended STAT hard collar of the neck ( since patient lower brainstem can be compromised at any moment) and furthur evalutation and possible surgery in a more advanced facility.Patient was presented to neuro-Surgeon Dr Palmer who accepted her and she will be tranferred to [facility] today. # Transaminitis, elevated lipase and amylase, hypotension, worrisome for impending acute cholangitis. There was is a high index of suspicion that the patient's elevated liver enzymes might be in the setting of cholangitis(initially was on IV ceftriaxone and Flagyl). GI suggested that the transaminitis what due to shocked liver. an MRCP did not show any acute pathology, patient LFTs has trended fown to normal limits during the hospitalization. #Drug fever/leukocytosis Patient initially was put on IV ceftriaxone and Flagyl for possible UTI/ cholangitis which was stopped sunsequently. However she developed fevers and rashes in both of her shins. Per ID consultation rashes and the fever was from the ceftriaxone which was stopped. Urine cultures, blood cultures were negative. However patient and CBCs remained elevated around 12,000 during the hospitalization. Patient is to follow-up in outpatient setting with hematology for further workup # Left UPJ obstruction on CT scan During the workup it was revealed that patient had Wjujnlet-ji-fzogeh hydronephrosis of the left kidney. Small, 3 mm calculus is seen in the expected location of the left ureterovesical junction. Urology consult obtained which said that this hydronephrosis and UPJ blockage is likely chronic which is been present since 2006. Patient with follow-up in outpatient setting with urology. #Hypothyroidism Patient was on 150 MCG levothyroxine, TSH was below normal limits, we reduced to 125 MCG and he should follow-up with his PCP and check the TSH within 4-8 weeks. Allergies: Coded Allergies: amoxicillin (Mild, RASH 06/13/16) clarithromycin (From BIAXIN) (Mild, RASH 06/13/16) urokinase (Mild, RASH 06/13/16) Pertinent Lab Results: Laboratory Tests 06/21 0715 Chemistry Sodium (137 - 145 mmol/L) 134 L Potassium (3.5 - 5.1 mmol/L) 4.0 Chloride (98 - 107 mmol/L) 100 Carbon Dioxide (22 - 30 mmol/L) 30 Anion Gap (5 - 16) 4 L BUN (7 - 17 mg/dL) 13 Creatinine (0.5 - 1.0 mg/dL) 0.5 Estimated GFR (>60 ml/min) > 60 BUN/Creatinine Ratio (7 - 25 %) 26.0 H Hematology CBC w Diff MAN DIFF ORDERED WBC (4.8 - 10.8 /CUMM) 12.2 H RBC (4.20 - 5.40 /CUMM) 3.89 L Hgb (12.0 - 16.0 G/DL) 10.8 L Hct (37 - 47 %) 32.6 L MCV (81.0 - 99.0 FL) 83.8 MCH (27.0 - 31.0 PG) 27.7 RDW (11.5 - 14.5 %) 15.5 H Plt Count (130 - 400 /CUMM) 231 MPV (7.4 - 10.4 FL) 8.7 Gran % (42.2 - 75.2 %) 57.8 Lymphocytes % (20.5 - 51.1 %) 33.2 Monocytes % (1.7 - 9.3 %) 4.9 Eosinophils % (0 - 5 %) 3.6 Basophils % (0.0 - 2.0 %) 0.5 Absolute Granulocytes (1.4 - 6.5 /CUMM) 7.0 H Segmented Neutrophils (42.2 - 75.2 %) 52 Band Neutrophils (0.0 - 5.0 %) 3 Absolute Lymphocytes (1.2 - 3.4 /CUMM) 4.0 H Lymphocytes (20.5 - 51.1 %) 31 Monocytes (1.7 - 9.3 %) 4 Absolute Monocytes (0.10 - 0.60 /CUMM) 0.6 Eosinophils (0 - 5.0 %) 3 Absolute Eosinophils (0.0 - 0.7 /CUMM) 0.4 Basophils (0.0 - 2.0 %) 2 Absolute Basophils (0.0 - 0.2 /CUMM) 0.1 Metamyelocytes (0.0 - 1.0 %) 5 H Platelet Estimate (ADEQUATE) ADEQUATE Polychromasia 1+ Poikilocytosis 2+ Anisocytosis 2+ Ovalocytes 2+ Elliptocytes 1+ PUBS MCHC (33.0 - 37.0 G/DL) 33.1 Disposition Summary Disposition Principal Diagnosis: Cervical cord/braistem cord compression Ischemic hepatitis secondary to hypotension, Additional Diagnosis: Drug Fever and rash secondary to ceftriaxone Mechanical falls Leukocytosis Discharge Disposition: SNF Discharge Instructions General Discharge Information Code Status: Full Code Patient's Diet: Heart healthy Patient's Activity: As tolerated Follow-Up Instructions/Appts: -you are being transferred to [facility] for furthur management of your cervical cord compression. -Please follow-up with your primary care provider within 7 days after discharge. -Please follow-up with your footwear sales representative within 14 days after discharge -Please follow-up with service administrator 14 days after discharge -Please follow-up with your neurologist 14 days after discharge -Please follow-up with your urologist within 14 days after discharge -Please follow up with your orthopedic surgeon within 2 weeks of discharge for management of your right arm and to discuss length of treatment in arm sling. -We have made changes to your home medications, please read the instructions carefully. -Please come back to the hospital if your symptoms got worse. Medications at Discharge Discharge Medications: Stop taking the following medications: Levothyroxine Sodium (Levothyroxine Sodium) 150 MCG TABLET ORAL DAILY Qty = 30 Continue taking these medications: Escitalopram Oxalate (Escitalopram Oxalate) 10 MG TABLET 1 Tablet ORAL DAILY Qty = 30 Comments: Last Taken: 06/21/16 Time: 10:00 AM Omeprazole (Omeprazole) 40 MG CAPSULE.DR 1 Capsule ORAL DAILY Qty = 30 Comments: Last Taken: 06/21/16 Time: 6:30 AM Alendronate Sodium (Alendronate Sodium) 70 MG TABLET 1 Tablet ORAL EVERY SUNDAY Qty = 12 Instructions: in the morning, at least 30 minutes before the first food, beverage, or medication of the day Comments: NOT GIVEN IN HOSPITAL Clobetasol Propionate (Clobetasol Propionate) 0.05 % CREAM..G. 1 Application On the skin Every Day Qty = 60 Instructions: apply to affected area(s) Comments: NOT GIVEN IN HOSPITAL Cholestyramine (With Sugar) (Cholestyramine Packet) 4 GRAM POWD.PACK 1 Scoopful ORAL TWICE DAILY Qty = 90 Comments: Last Taken: 06/21/16 Time: 11:30 AM Multivitamin/Iron/Folic Acid (Centrum Complete Multivit Tab) 18 MG IRON-400 MCG TABLET 1 Tablet ORAL Every Day Calcium Carbonate/Vitamin D3 (Caltrate 600 + D Tablet) 600 MG-800 TABLET 1 Tablet ORAL DAILY Comments: NOT GIVEN IN HOSPTIAL Calcium Polycarbophil (Fibercon) 625 MG TABLET 625 Milligram ORAL Every Day Comments: NOT GIVEN IN HOSPTIAL Econazole (Econazole Nitrate) 1 % CREAM..G. 1 Application On the skin TWICE DAILY Instructions: apply to affected area(s) Comments: NOT GIVEN IN HOSPTIAL Oxycodone HCl (Oxycodone HCl) 5 MG TABLET 1 Tablet ORAL 4XDAILY as needed for PAIN Qty = 40 Comments: Last Taken: 06/20/16 Time: 8:30 AM Simvastatin (Simvastatin*) 20 MG TABLET 1 Tablet ORAL Every night Days = 30 Comments: NOT GIVEN IN HOSPITAL Start taking the following new medications: Levothyroxine Sodium (Synthroid) 125 MCG TABLET 0.125 Milligram ORAL DAILY BEFORE BREAKFAST Days = 10 No Refills Copies To: DAVIDE REAGAN,RED Arce; MARÍA REAGAN,RUY Zuniga; BEST REAGAN,MOISÉS Hogue; NICOLE REAGAN, JAKE Ho; HECTOR REAGAN,PARTH Gross; OFELIA REAGAN,RAMU Ho; CORNELIUS REAGAN,PARTH Attending Review Statement Documenting Attending: NAREN ROJAS M.D Other Findings: I have reviewed and agree with the discharge summary.
--- NOTE | 2016-06-16 12:55 | PN- Infect Dx ---
Subjective Subjective: Afebrile. She complains of bilateral knee pain and a dry cough Objective Last 24 Hrs of Vital Signs/I&O Vital Signs Date Time Temp Pulse Resp B/P Pulse O2 O2 Flow FiO2 Ox Delivery Rate 06/16 1044 Room Air 06/16 1034 Room Air 06/16 0826 99.3 84 17 150/71 95 Room Air 06/16 0053 99.4 92 20 96/58 96 Room Air 06/15 1601 99.8 95 20 122/62 97 Room Air Intake & Output 06/16 1600 06/16 0800 06/16 0000 Intake Total 875 1480 Output Total 200 125 Balance 675 1355 Intake, IV 875 1000 Intake, Oral 480 Output, Urine 200 125 Physical Exam Other Physical Findings: She appears comfortable in no acute distress Skin macular rash on her back is unchanged but improved on her extremities Lungs are clear Heart regular rhythm with no murmur Back right lower back hematoma unchanged Extremities bilateral knee swelling, with no erythema or tenderness and with good range of motion, right greater than left Results Last 24 Hours of Lab Results: Laboratory Tests 06/16 0620 Chemistry Sodium (137 - 145 mmol/L) 132 L Potassium (3.5 - 5.1 mmol/L) 3.8 Chloride (98 - 107 mmol/L) 106 Carbon Dioxide (22 - 30 mmol/L) 18 L Anion Gap (5 - 16) 9 BUN (7 - 17 mg/dL) 23 H Creatinine (0.5 - 1.0 mg/dL) 0.6 Estimated GFR (>60 ml/min) > 60 BUN/Creatinine Ratio (7 - 25 %) 38.3 H Total Bilirubin (0.2 - 1.3 mg/dL) 0.6 Direct Bilirubin (< 0.4 mg/dL) 0.3 AST (14 - 36 U/L) 26 ALT (9 - 52 U/L) 277 H Alkaline Phosphatase (<127 U/L) 136 H Total Protein (6.3 - 8.2 g/dL) 4.0 L Albumin (3.5 - 5.0 g/dL) 1.9 L Coagulation PT (9.4 - 12.5 SEC) 15.4 H INR (0.90 - 1.19) 1.47 H Hematology CBC w Diff NO MAN DIFF REQ WBC (4.8 - 10.8 /CUMM) 8.2 RBC (4.20 - 5.40 /CUMM) 3.93 L Hgb (12.0 - 16.0 G/DL) 11.0 L Hct (37 - 47 %) 33.0 L MCV (81.0 - 99.0 FL) 83.9 MCH (27.0 - 31.0 PG) 28.0 RDW (11.5 - 14.5 %) 15.4 H Plt Count (130 - 400 /CUMM) 134 MPV (7.4 - 10.4 FL) 10.4 Gran % (42.2 - 75.2 %) 87.4 H Lymphocytes % (20.5 - 51.1 %) 5.1 L Monocytes % (1.7 - 9.3 %) 2.9 Eosinophils % (0 - 5 %) 4.5 Basophils % (0.0 - 2.0 %) 0.1 Absolute Granulocytes (1.4 - 6.5 /CUMM) 7.1 H Absolute Lymphocytes (1.2 - 3.4 /CUMM) 0.4 L Absolute Monocytes (0.10 - 0.60 /CUMM) 0.2 Absolute Eosinophils (0.0 - 0.7 /CUMM) 0.4 Absolute Basophils (0.0 - 0.2 /CUMM) 0 PUBS MCHC (33.0 - 37.0 G/DL) 33.4 Last 24 Hours of Juan Results: Blood cultures June 13 negative Blood cultures June 15 negative Urine culture June 14 negative Recent Imaging Studies: Chest x-ray June 16 negative Assessment/Plan Impression: Stable with no further fevers and with white blood cell count normal off antibiotics. Of note her eosinophils are increased on her differential, supporting the clinical suspicion of a drug fever, possibly secondary to Ceftriaxone given her known allergy to penicillins. She has no obvious focus of infection. Her bilateral knee pain is likely secondary to osteoarthritis status post bilateral knee replacements. Suggestion: 1. Would consider her allergic to cephalosporins as well as penicillins 2. Continue to follow off antibiotics
[2016-06-16 15:55] VITALS: BP 138/64
--- NOTE | 2016-06-16 16:57 | PN- Cardiology ---
Subjective Subjective: Clinically the patient seems to be doing better. Discussed with the patient's family who feel that she looks much better today. The patient denies any new issues or symptoms. Objective Vital Signs and I&Os Vital Signs Date Time Temp Pulse Resp B/P Pulse O2 O2 Flow FiO2 Ox Delivery Rate 06/16 1555 97.4 73 16 138/64 97 Room Air 06/16 1044 Room Air 06/16 1034 Room Air 06/16 0826 99.3 84 17 150/71 95 Room Air 06/16 0053 99.4 92 20 96/58 96 Room Air Intake & Output 06/16 1600 06/16 0800 06/16 0000 06/15 1600 06/15 0800 06/15 0000 Intake Total 875 1480 1580 2200 1240 Output Total 200 125 375 400 Balance 675 1355 1205 1800 1240 Intake, IV 875 1000 1100 1000 1000 Intake, Oral 203 537 5500 240 Number 2 1 2 Bowel Movements Output, Urine 200 125 375 400 Patient 140 lb Weight Physical Exam: General Appearance Alert, Oriented X3, Cooperative, No Acute Distress, sitting comfortably in bed. Skin slight generalized erythema HEENT Normal Neck No JVD, +2 Carotid Pulse wo Bruit Cardiovascular Regular Rate, Normal S1, Normal S2, 1/6 systolic murmur Lungs Clear to Auscultation Abdomen Normal Bowel Sounds, Soft, No Tenderness Neurological Non focal Extremities Normal Pulses, bilateral edema, non pitting Vascular Normal Pulses, Pulses Symmetrical Current Medications: Current Medications Sig/Isela Start time Last Medication Dose Route Stop Time Status Admin Acetaminophen 650 MG ONCE ONE 06/15 1815 CAN PO 06/15 181 Acetaminophen 325 MG ONCE ONE 06/15 1815 DC 06/15 PO 06/15 181 1807 Alendronate Sodium 70 MG QMON 06/19 0700 AC PO Benzonatate 100 MG TID 06/16 1000 AC 06/16 PO 1629 Ceftriaxone Sodium 1,000 MG DAILY 06/14 1000 DC 06/15 IV 0940 Cholestyramine Resin 1 PAC TID 06/15 1600 AC 06/16 PO 1629 Diclofenac Sodium 1 JACQUI 4 TIMES/DAY 06/16 1800 UNVr TOP Escitalopram Oxalate 10 MG DAILY 06/14 1000 AC 06/16 PO 0930 Levothyroxine Sodium 0.15 MG DAILY AC 06/14 0700 AC 06/16 PO 0709 Metronidazole 500 MG Q8H 01/11 0400 DC 06/15 N/A 1 UNIT IV 1231 Omeprazole 40 MG DAILY AC 06/15 0826 AC 06/16 PO 0753 Oxycodone HCl 5 MG Q6-PRN PRN 06/13 2315 06/16 PO 1409 Sodium Chloride 1,000 ML .Q8H 06/13 2230 06/16 IV 1306 Results Last 48 Hrs of Labs/Mics: Laboratory Tests 06/16/16 0620: Anion Gap 9, Estimated GFR > 60, BUN/Creatinine Ratio 38.3 H, Total Bilirubin 0.6, Direct Bilirubin 0.3, AST 26, ALT 277 H, Alkaline Phosphatase 136 H, Total Protein 4.0 L, Albumin 1.9 L, PT 15.4 H, INR 1.47 H, CBC w Diff NO MAN DIFF REQ, RBC 3.93 L, MCV 83.9, MCH 28.0, RDW 15.4 H, MPV 10.4, Gran % 87.4 H , Lymphocytes % 5.1 L, Monocytes % 2.9, Eosinophils % 4.5, Basophils % 0.1, Absolute Granulocytes 7.1 H, Absolute Lymphocytes 0.4 L, Absolute Monocytes 0.2, Absolute Eosinophils 0.4, Absolute Basophils 0, PUBS MCHC 33.4 06/15/16 1230: PT 20.2 H, INR 1.94 H 06/15/16 0615: Anion Gap 12, Estimated GFR > 60, BUN/Creatinine Ratio 50.0 H, Total Bilirubin 0.8, Direct Bilirubin 0.4, AST 103 H, ALT 458 H, Alkaline Phosphatase 175 H, Total Protein 4.2 L, Albumin 2.0 L, TSH 0.097 L, CBC w Diff MAN DIFF ORDERED, RBC 3.66 L, MCV 84.3, MCH 28.2, RDW 15.5 H, MPV 10.0, Gran % 93.3 H, Lymphocytes % 4.1 L, Monocytes % 0.7 L, Eosinophils % 1.6, Basophils % 0.3, Absolute Granulocytes 9.4 H, Segmented Neutrophils 81 H, Band Neutrophils 14 H, Absolute Lymphocytes 0.4 L, Lymphocytes 2 L, Monocytes 1 L, Absolute Monocytes 0.1 L, Eosinophils 2, Absolute Eosinophils 0.2, Absolute Basophils 0, Platelet Estimate VERIFIED BY SMEAR, Poikilocytosis 1+, Anisocytosis 1+, PUBS MCHC 33.5 06/14/16 1722: Troponin I < 0.01 Microbiology 06/14 2024 STOOL: Clostridium difficile Toxin A & B - COMP Assessment/Plan Assessment/Plan Assessment: 1. Left UPJ obstruction 2. Possible cholangitis 3. Volume depletion, improved with IV fluids 4. Status post multiple falls and possible syncope, likely secondary to volume depletion and possible infection. No arrhythmias seen on telemetry. 5. Ruled out for mitral infarction with negative troponin 2 6. Hypokalemia Recommendationw: - Continue current treatment plan. - Echocardiogram pending - Further plans after the echocardiogram Continue telemetry? Yes
[2016-06-16 22:00] VITALS: BP 120/80
[2016-06-17 08:33] LABS: PT 12.3 SEC (9.4-12.5)
[2016-06-17 08:35] VITALS: BP 152/80
--- NOTE | 2016-06-17 08:49 | PN- Housestaff ---
MICHAEL TONY 06/17/16 0849: Subjective Follow-up For: Transaminitis Hypotension Recurrent falls Syncopal episodes Possible cholangitis Complaints: pain scale (0-10) Tele-Events Since Last Visit: Sinus rhythm Rate 70-73 Bundle branch block Subjective: Patient was seen and examined this morning. She is alert, awake and oriented to time place and person. No acute events noticed overnight. She feels much better today. Patient does complain cough which is improving, I think relief with cough suppressants He denies any fever, chills, shortness of breath, sputum production. She denies any nausea, vomiting, abdominal pain. Reported bilateral knee pain. Vitals stable. Heart rate 73, respiratory rate 20, blood pressure 150/80 saturating at 97 on room air Review of Systems Constitutional: Denies: see HPI. Objective Last 24 Hrs of Vital Signs/I&O Vital Signs Date Time Temp Pulse Resp B/P Pulse O2 O2 Flow FiO2 Ox Delivery Rate 06/17 0835 98.0 73 20 152/80 97 Room Air 06/16 2200 98.0 72 20 120/80 95 Room Air 06/16 1555 97.4 73 16 138/64 97 Room Air Intake & Output 06/17 1600 06/17 0800 06/17 0000 Intake Total 1100 Output Total 400 Balance 700 Intake, IV 1000 Intake, Oral 100 Output, Urine 400 Physical Exam General Appearance: Alert, Oriented X3, Cooperative, No Acute Distress Skin: No Significant Lesion HEENT: Atraumatic, Mucous Membr. moist/pink Neck: Supple, No JVD Lymphatic: Cervical nl Cardiovascular: Normal S1, Normal S2 Lungs: Normal Air Movement Abdomen: Normal Bowel Sounds, Soft, No Tenderness Extremities: No Clubbing, No Cyanosis, No Edema Vascular: Normal Pulses Current Medications: Current Medications Sig/Isela Start time Last Medication Dose Route Stop Time Status Admin Alendronate Sodium 70 MG QMON 06/19 0700 AC PO Artificial Tears 2 GTT 4 TIMES/DAY 06/16 1800 AC 06/17 OPH 0959 Benzonatate 100 MG TID 06/16 1000 AC 06/17 PO 1000 Cholestyramine Resin 1 PAC TID 06/15 1600 AC 06/17 PO 1003 Diclofenac Sodium 1 JACQUI 4 TIMES/DAY 06/16 1800 AC 06/16 TOP 2058 Escitalopram Oxalate 10 MG DAILY 06/14 1000 AC 06/17 PO 1000 Levothyroxine Sodium 0.15 MG DAILY AC 06/14 0700 AC 06/17 PO 0559 Omeprazole 40 MG DAILY AC 06/15 0826 AC 06/17 PO 0559 Oxycodone HCl 5 MG Q6-PRN PRN 06/13 2315 AC 06/17 PO 0225 Potassium Chloride 40 MEQ ONCE ONE 06/17 1200 DC PO 06/17 1201 Sodium Chloride 1,000 ML .Q8H 06/13 2230 AC 06/17 IV 0600 Last 24 Hrs of Lab/Juan Results Last 24 Hrs of Labs/Mics: Laboratory Tests 06/17/16 0655: Anion Gap 7, Estimated GFR > 60, BUN/Creatinine Ratio 26.0 H, Total Bilirubin 0.6, Direct Bilirubin 0.4, AST 19, ALT 202 H, Alkaline Phosphatase 113, Total Protein 4.1 L, Albumin 1.9 L, PT 12.3, INR 1.17 Assessment/Plan Assessment: 76-year-old female with PMH of osteoporosis, HLD, hypothyroidism, depression, presented for referral by her PCP, Dr. Khalil, for evaluation of recurrent fall and possible STR placement. In the ED, she was noted to be hypotensive at 84/51, for which her BP responded well to 2 L of NS. Her labs were found to be abnormal in the ED including AST 1649, ALT 1777, Alk phos 266, GGT 147, amylase 124, lipase 664. Although she denies any symptoms, and she had cholecyst[place] [address] was negative for stones, the hypotension is worrisome for impending acute cholangitis. She is admitted to and the following problems addressed: # Recurrent falls Patient gavino has had 4 falls recently, some of which were due to syncope. Thus she warrants further cardiac and neuro workup. Continue tele for close monitoring for arrythymia Check echocardiogram Consider neuro & cardiology consult Follow PT evaluation Follow Vit b12 - WNL Continue ashwin/vit D - Vit D low Continue multivitamin/iron/folate Continue oxycodone 5 mg q6p HOLD ibuprofen and Tylenol #Questionable atypical pneumonia Patient continues to cough Chest x-ray done the same did not show any evidence of consolidation and/or atelectasis. #URI symptoms Check for viral influenza, flu negative Isolation. Contact precautions. # Transaminitis, elevated lipase and amylase, hypotension, worrisome for impending acute cholangitis. Most likely cause is shock liver from hypotension on ED presentation. Given 1 time ceftriaxone and flagyl in the ED 2 L NS given in the ED LA 1.6 Follow MRCP Follow BC X 2, UC--> no growth after 2 days. Continue ceftriaxone and flagyl emprically---> stop antibiotics, lilkey contributing to drug fever patient likely has allergy to cephalosporins going to decrease fever and following off antibiotics. Continue IVF Hold statin, for now. Liver enzymes continue to be trending downwards ALT 277, AST within normal limits. INR 1.4 7 repeat INR in a.m. # Left UPJ obstruction on CT scan Urology consult - recommended outpatient follow up; however, previous records need to be obtained to confirm whether her hydronephrosis is acute or chronic. Follow Ucx Follow renal US - [id number] hydronephrosis of the left kidney and small , 3 mm calculus is seen in the expected location of the left ureterovesical junction. However, the left ureter is not dilated on the CT exam, which shows ureteropelvic junction obstruction. # Dehydration BUN 29H, cr 0.9 on admission Continue IVF Advanced Diet to regular # Hypothyroidism Follow TSH, FT4 - T4 high, TSH low this admission Consider endo consult Continue levothyroxine 150 mcg # Diarrhea due to s/p Gall bladder removal. Continue cholestyramine 4 gm bid hold statin # Depression Continue escitalopram 10 mg # Osteoporosis Continue alendronate 70 q mon # Skin Continue clobetasol for vaginal Continue econazole for under breasts and inner thighs # GI Continue omeprazole 40 daily Diet: advanced to regular diet DVT ppx: ALP S FULL CODE Problem List: 1. Recurrent falls 2. Knee pain 3. Generalized weakness 4. Leukocytosis 5. Hypotension 6. Transaminitis Pain Ratin Pain Location: left knee Pain Goal: Remain pain free Pain Plan: tylinol vicodin Tomorrow's Labs & Rationales: : LFT monitor hepatic function BEP: Monitor creatinine and electrolytes. INR monitor hepatic function. ANEESH REAGAN,[facility] 06/17/16 1412: Attending MD Review Statement Attending Statement Attending Statement: examined this patient, discuss w/resident/PA/BILINGUAL CUSTOMER SERVICE, agreed w/resident/PA/BILINGUAL CUSTOMER SERVICE, reviewed EMR data (avail), discussed with nursing, discussed with case mgmt, reviewed images, amended to note Attending Assessment/Plan: Patient seen and examined, doing okay. Still on full liquid diet. Diet has not been advanced yet. She is tolerating well without any nausea vomiting or abd pain. Vital Signs Date Time Temp Pulse Resp B/P Pulse O2 O2 Flow FiO2 Ox Delivery Rate 06/17 0835 98.0 73 20 152/80 97 Room Air 06/16 2200 98.0 72 20 120/80 95 Room Air 06/16 1555 97.4 73 16 138/64 97 Room Air on exam; aox3, nad. cv; s1,s2, rrr. resp; clear abd; soft, nt, bs+ ext; no edema ms; rue in sling. Laboratory Tests 06/17 0655 Chemistry Sodium (137 - 145 mmol/L) 133 L Potassium (3.5 - 5.1 mmol/L) 3.4 L Chloride (98 - 107 mmol/L) 105 Carbon Dioxide (22 - 30 mmol/L) 20 L Anion Gap (5 - 16) 7 BUN (7 - 17 mg/dL) 13 Creatinine (0.5 - 1.0 mg/dL) 0.5 Estimated GFR (>60 ml/min) > 60 BUN/Creatinine Ratio (7 - 25 %) 26.0 H Total Bilirubin (0.2 - 1.3 mg/dL) 0.6 Direct Bilirubin (< 0.4 mg/dL) 0.4 AST (14 - 36 U/L) 19 ALT (9 - 52 U/L) 202 H Alkaline Phosphatase (<127 U/L) 113 Total Protein (6.3 - 8.2 g/dL) 4.1 L Albumin (3.5 - 5.0 g/dL) 1.9 L Coagulation PT (9.4 - 12.5 SEC) 12.3 INR (0.90 - 1.19) 1.17 A/P; 76-year-old female with past medical history significant for hypothyroidism , HLD, depression, asthma/ILD, benign left lung surgery, DJD, OA s/p b/l knee arthroplasty admitted with generalized weakness, recurrent falls and found to have transaminitis. Initially there was a question of obstruction in CBD but MRCP did not show any evidence of intra-or extra hepatic biliary ductal dilatation. Patient has chronic Chronic left UPJ obstruction with moderate left-sided hydronephrosis and a very large and tortuous appearance of the renal pelvis. Patient also had coagulopathy. INR trended down. LFTs remain stable. Creatinine remained stable. Please discontinue her IV fluids. Please advance diet as she tolerates. Please continue other current medications. Likely discharge to rehabilitation tomorrow. For DVT prophylaxis patient is on ALPS secondary to coagulopathy.
[2016-06-17 16:10] VITALS: BP 112/78
[2016-06-18 01:00] VITALS: BP 142/82
--- NOTE | 2016-06-18 07:22 | PN- Housestaff ---
EYAL REAGAN,[facility] 06/18/16 0722: Subjective Follow-up For: Transaminitis Hypotension Recurrent falls Syncopal episodes Possible cholangitis Tele-Events Since Last Visit: Sinus rhythm 64-92 No overnight events Subjective: Ms. Llanos was seen and examined this morning. She is resting comfortably in bed. Patient states she continues to feel weak. She denies any chest pain and chest discomfort. Patient does however continue to experience bilateral knee pain. Patient's right arm continues to be in a sling. The patient's family was at the bedside, and daughter are concerned about the lack of patient's workup and concrete diagnosis, especially regarding bilateral lower extremity weakness. Patient denies any fever, chills, nausea, vomiting. Review of Systems Constitutional: Reports: see HPI. Denies: chills, diaphoresis, fever. Objective Last 24 Hrs of Vital Signs/I&O Vital Signs Date Time Temp Pulse Resp B/P Pulse O2 O2 Flow FiO2 Ox Delivery Rate 06/18 0806 98.5 79 20 154/76 95 Room Air 06/18 0100 98.7 84 18 142/82 93 Room Air 06/18 0000 96 Room Air 06/17 1610 97.6 72 18 112/78 97 Room Air 06/17 1600 95 Room Air Intake & Output 06/18 1600 06/18 0800 06/18 0000 Intake Total 100 330 Output Total 350 900 Balance -250 -570 Intake, IV 10 Intake, Oral 100 320 Number 0 Bowel Movements Output, Urine 350 900 Physical Exam General Appearance: Alert, Oriented X3, Cooperative Cardiovascular: Normal S1, Normal S2 Lungs: Clear to Auscultation Abdomen: Normal Bowel Sounds, Soft, No Tenderness Neurological: Normal Speech, Normal Tone Extremities: Edema 2+ Current Medications: Current Medications Sig/Isela Start time Last Medication Dose Route Stop Time Status Admin Alendronate Sodium 70 MG QMON 06/19 0700 AC PO Artificial Tears 2 GTT 4 TIMES/DAY 06/16 1800 AC 06/18 OPH 1813 Cholestyramine Resin 1 PAC BID 06/18 2200 AC PO Cholestyramine Resin 1 PAC TID 06/15 1600 DC 06/18 PO 1118 Diclofenac Sodium 1 JACQUI 4 TIMES/DAY 06/16 1800 AC 06/18 TOP 1813 Diphenhydramine HCl 50 MG ONCE ONE 06/18 1845 DC PO 06/18 1846 Diphenhydramine HCl 50 MG ONCE ONE 06/18 1015 DC 06/18 PO 06/18 1016 1118 Docusate Sodium 100 MG ONCE ONE 06/18 1300 DC 06/18 PO 06/18 1301 1406 Escitalopram Oxalate 10 MG DAILY 06/14 1000 AC 06/18 PO 1120 Guaifenesin 10 ML Q6P PRN 06/17 1400 AC 06/17 PO 2113 Heparin Sodium 5,000 UNIT Q8 06/18 1400 AC 06/18 (Porcine) SC 1407 Levothyroxine Sodium 0.125 MG DAILY AC 06/19 0700 AC PO Levothyroxine Sodium 0.15 MG DAILY AC 06/14 0700 DC 06/18 PO 0556 Nystatin 1 JACQUI BID PRN 06/18 1845 AC TOP Omeprazole 40 MG DAILY AC 06/15 0826 AC 06/18 PO 0556 Oxycodone HCl 5 MG Q6-PRN PRN 06/13 2315 AC 06/18 PO 1840 Potassium Chloride 40 MEQ ONCE ONE 06/18 1015 DC 06/18 PO 06/18 1016 1118 Last 24 Hrs of Lab/Juan Results Last 24 Hrs of Labs/Mics: Laboratory Tests 06/18/16 1358: CBC w Diff MAN DIFF ORDERED, RBC 4.08 L, MCV 82.6, MCH 27.6, RDW 15.6 H, MPV 9.3, Gran % 49.2, Lymphocytes % 37.2, Monocytes % 11.0 H, Eosinophils % 2.5, Basophils % 0.1, Absolute Granulocytes 6.2, Absolute Lymphocytes 4.7 H, Absolute Monocytes 1.4 H, Absolute Eosinophils 0.3, Absolute Basophils 0, Platelet Estimate VERIFIED BY SMEAR, Poikilocytosis 2+, Anisocytosis 1+, Ovalocytes 1+, [place] Cells 1+, PUBS MCHC 33.4 06/18/16 0725: Anion Gap 10, Estimated GFR > 60, BUN/Creatinine Ratio 16.0, Total Bilirubin 0.8 , Direct Bilirubin 0.4, AST 28, ALT 160 H, Alkaline Phosphatase 118, Total Protein 4.4 L, Albumin 2.1 L, PT 12.7 H, INR 1.21 H Assessment/Plan Assessment: 76-year-old female with PMH of osteoporosis, HLD, hypothyroidism, depression, presented for referral by her PCP, Dr. Khalil, for evaluation of recurrent fall and possible STR placement. In the ED, she was noted to be hypotensive at 84/51, for which her BP responded well to 2 L of NS. Her labs were found to be abnormal in the ED including AST 1649, ALT 1777, Alk phos 266, GGT 147, amylase 124, lipase 664. Although she denies any symptoms, and she had cholecystectomy [place] [address] was negative for stones, the hypotension is worrisome for impending acute cholangitis. She is admitted to and the following problems addressed: # Recurrent falls Patient gavino has had 4 falls recently, some of which were due to syncope. Thus she warrants further cardiac and neuro workup. Continue tele for close monitoring for arrythymia Check echocardiogram Follow Vit b12 - WNL Continue ashwin/vit D - Vit D low Continue multivitamin/iron/folate Continue oxycodone 5 mg q6p HOLD ibuprofen and Tylenol We have obtained a neurological consult for the next 24 hours will await further recommendations. #Questionable atypical pneumonia Patient continues to cough Chest x-ray done the same did not show any evidence of consolidation and/or atelectasis. #URI symptoms Check for viral influenza, flu negative Isolation. Contact precautions. #Worsening generalized rash Patient continues to report worsening rash. We'll continue to follow off antibiotics. Benadryl by mouth given when necessary. # Transaminitis, elevated lipase and amylase, hypotension, worrisome for impending acute cholangitis. Most likely cause is shock liver from hypotension on ED presentation. Given 1 time ceftriaxone and flagyl in the ED 2 L NS given in the ED LA 1.6 Follow MRCP Follow BC X 2, UC--> no growth after 2 days. Continue ceftriaxone and flagyl emprically---> stop antibiotics, lilkey contributing to drug fever patient likely has allergy to cephalosporins going to decrease fever and following off antibiotics. Continue IVF Hold statin, for now. Liver enzymes continue to be trending downwards ALT 277, AST within normal limits. INR 1.4 7 repeat INR in a.m. # Left UPJ obstruction on CT scan Urology consult - recommended outpatient follow up; however, previous records need to be obtained to confirm whether her hydronephrosis is acute or chronic. Follow Ucx Follow renal US - [id number] hydronephrosis of the left kidney and small , 3 mm calculus is seen in the expected location of the left ureterovesical junction. However, the left ureter is not dilated on the CT exam, which shows ureteropelvic junction obstruction. # Dehydration BUN 29H, cr 0.9 on admission Continue IVF Advanced Diet to regular patient is tolerating diet well. # Hypothyroidism Follow TSH, FT4 - T4 high, TSH low this admission Consider endo consult Continue levothyroxine 150 mcg # Diarrhea due to s/p Gall bladder removal. Continue cholestyramine 4 gm bid hold statin # Depression Continue escitalopram 10 mg # Osteoporosis Continue alendronate 70 q mon # Skin Continue clobetasol for vaginal Continue econazole for under breasts and inner thighs # GI Continue omeprazole 40 daily Diet: advanced to regular diet DVT ppx: ALP S FULL CODE Problem List: 1. Forehead laceration 2. Syncope 3. Transaminitis 4. Pancreatitis 5. Hypotension 6. Leukocytosis 7. Generalized weakness 8. Knee pain 9. Liver failure 10. Recurrent falls 11. Fever 12. Ischemic hepatitis 13. Malnutrition 14. Obstruction of left ureteropelvic junction (UPJ) Pain Ratin Pain Location: Bilateral Knee Pain Pain Goal: Remain pain free Pain Plan: Tylenol PRN Tomorrow's Labs & Rationales: CBC monitor for any signs of acute infection. INR and hepatic function monitoring tech liver function in the setting of shock liver. BEP monitor electrolytes rule out hypomagnesemia and hypokalemia. ANEESH REAGAN,[facility] 06/18/16 6615: Attending MD Review Statement Attending Statement Attending MD Statement: examined this patient, discuss w/resident/PA/BAG CHECKER, agreed w/resident/PA/BAG CHECKER, discussed with family, reviewed EMR data (avail), discussed with nursing, discussed with case mgmt, reviewed images, amended to note Attending Assessment/Plan: Patient seen and examined, not feeling so well as she is very concerned about her rash. She has this non-HEwhich is all over her body. Family at bedside is very concerned about mom's legs weakness as well as the fact that she has been falling recurrently over the last 6 weeks. They are requesting a neurology evaluation. Vital Signs Date Time Temp Pulse Resp B/P Pulse O2 O2 Flow FiO2 Ox Delivery Rate 06/18 0806 98.5 79 20 154/76 95 Room Air 06/18 0100 98.7 84 18 142/82 93 Room Air 01/15 0000 96 Room Air 06/17 1610 97.6 72 18 112/78 97 Room Air 06/17 1600 95 Room Air on exam; aox3, nad. cv; s1,s2, rrr resp; clear abd; soft, nt, bs+ ext; trace edema. skin; diffuse macular rash all over the body. Laboratory Tests 06/18 0725 Chemistry Sodium (137 - 145 mmol/L) 137 Potassium (3.5 - 5.1 mmol/L) 3.5 Chloride (98 - 107 mmol/L) 106 Carbon Dioxide (22 - 30 mmol/L) 21 L Anion Gap (5 - 16) 10 BUN (7 - 17 mg/dL) 8 Creatinine (0.5 - 1.0 mg/dL) 0.5 Estimated GFR (>60 ml/min) > 60 BUN/Creatinine Ratio (7 - 25 %) 16.0 Total Bilirubin (0.2 - 1.3 mg/dL) 0.8 Direct Bilirubin (< 0.4 mg/dL) 0.4 AST (14 - 36 U/L) 28 ALT (9 - 52 U/L) 160 H Alkaline Phosphatase (<127 U/L) 118 Total Protein (6.3 - 8.2 g/dL) 4.4 L Albumin (3.5 - 5.0 g/dL) 2.1 L Coagulation PT (9.4 - 12.5 SEC) 12.7 H INR (0.90 - 1.19) 1.21 H A/P; 76-year-old female with past medical history significant for hypothyroidism , HLD, depression, asthma/ILD, benign left lung surgery, DJD, OA s/p b/l knee arthroplasty admitted with generalized weakness, recurrent falls and found to have transaminitis. Initially there was a question of obstruction in CBD but MRCP did not show any evidence of intra-or extra hepatic biliary ductal dilatation. Patient has chronic Chronic left UPJ obstruction with moderate left-sided hydronephrosis and a very large and tortuous appearance of the renal pelvis. Patient also had coagulopathy. INR trended down. LFTs remain stable. Creatinine remained stable. Family medical concerned about patient's recurrent fall. Patient has overall some generalized weakness in the lower extremities but also she has arthritis in bilateral knees. Patient's family is requesting a neurology evaluation. Will consult a neurologist. I also discussed with Dr. Mac about the rash. It has been thought that this rash could be related to the antibiotics. She was also given Tessalon Perles which has been discontinued. Antibiotics were discontinued as well. Please ordered a CBC to check for any eosinophilia. Patient will be monitored for any worsening. Family absolutely does not want to leave until a less the cause of her recurrent falls has been addressed per neurology evaluation. DVT prophylaxis: Please order heparin subcutaneous for DVT prophylaxis as I do not see any contraindication for pharmacologic DVT prophylaxis.
[2016-06-18 08:06] VITALS: BP 154/76
[2016-06-18 08:52] LABS: PT 12.7 SEC (9.4-12.5)
--- NOTE | 2016-06-18 10:37 | PN- Infect Dx ---
Subjective Subjective: Afebrile. She was noted to have a persistent rash, that is nonpruritic. Objective Last 24 Hrs of Vital Signs/I&O Vital Signs Date Time Temp Pulse Resp B/P Pulse O2 O2 Flow FiO2 Ox Delivery Rate 06/18 0806 98.5 79 20 154/76 95 Room Air 06/18 0100 98.7 84 18 142/82 93 Room Air 06/18 0000 96 Room Air 06/17 1610 97.6 72 18 112/78 97 Room Air 06/17 1600 95 Room Air Intake & Output 06/18 1600 06/18 0800 06/18 0000 Intake Total 100 330 Output Total 350 900 Balance -250 -570 Intake, IV 10 Intake, Oral 100 320 Number 0 Bowel Movements Output, Urine 350 900 Physical Exam Other Physical Findings: She appears comfortable in no acute distress Skin maculopapular rash on her extremities and trunk, somewhat improved Lungs are clear Heart regular rhythm with no murmur Extremities no cyanosis, clubbing or edema Results Last 24 Hours of Lab Results: Laboratory Tests 06/18 0725 Chemistry Sodium (137 - 145 mmol/L) 137 Potassium (3.5 - 5.1 mmol/L) 3.5 Chloride (98 - 107 mmol/L) 106 Carbon Dioxide (22 - 30 mmol/L) 21 L Anion Gap (5 - 16) 10 BUN (7 - 17 mg/dL) 8 Creatinine (0.5 - 1.0 mg/dL) 0.5 Estimated GFR (>60 ml/min) > 60 BUN/Creatinine Ratio (7 - 25 %) 16.0 Total Bilirubin (0.2 - 1.3 mg/dL) 0.8 Direct Bilirubin (< 0.4 mg/dL) 0.4 AST (14 - 36 U/L) 28 ALT (9 - 52 U/L) 160 H Alkaline Phosphatase (<127 U/L) 118 Total Protein (6.3 - 8.2 g/dL) 4.4 L Albumin (3.5 - 5.0 g/dL) 2.1 L Coagulation PT (9.4 - 12.5 SEC) 12.7 H INR (0.90 - 1.19) 1.21 H Last 24 Hours of Juan Results: Blood cultures June 15 negative Rapid flu swab June 17 negative Assessment/Plan Impression: Stable with temperatures remaining normal and with her last white blood cell count also normal off antibiotics. Her rash persists, though may still be related to the Ceftriaxone. She has no obvious focus of infection. Her bilateral knee pain is likely secondary to osteoarthritis status post bilateral knee replacements. Suggestion: 1. Would consider her allergic to cephalosporins as well as penicillins 2. Would discontinue any other nonessential medications 3. Continue to follow off antibiotics
--- NOTE | 2016-06-18 11:54 | PN- Student ---
[facility]8: Subjective Subjective: CC: Multiple fall history and transaminitis Mrs. Llanos is a 76 y/o female that was brought into [facility] due to multiple falls and it was found that the patient had transaminitis with elevated lipase and amylase. I checked in on the patient today to see how she was. She stated that she was feeling better overall. However, noted bilateral knee pain 8-9/10 and facial pruritis that appears to be getting better. She also noticed lower trunk/leg rash that appeared initially with the onset of antibiotics. She appeared to be coughing occasionally with some productive sputum. Pt stated abdominal and bilateral flank pain due to exessive coughing. Pt also complained about urgency to pass stool during the night. Overall, the patient stated that she was feeling better and was in good spirit. 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 Fatigue (X) * Eyes: Visual Changes (); Pain (); Readness () * ENT: Headaches (); hoarseness (); sore throat (X); epistaxis (); sinus symptoms (X); hearing loss (X); tinnitus () * CVS: Chest Pain (); Edema (X); PND (); Orthopnea (); Palpitations (); Claudication () * Respiratory: Cough (X); SOB (X); Wheezing (); Hypersomnolence () * GI: Abdominal Pain (); Stool changes (X); Nausea/Vomiting (); Diarrhea (X); Heartburn (); Blood in Stool () * : Dysuria (); Frequency (); Hematuria (); Discharge (); Menstrual Problems ( ); * MSK: Arthralgias (); Arthritis (X); Joint Swelling (X); Myalgias (); Backpain (X) * Heme/Lymph: Bleeding (); Burising (); Clotting (); Transfusions (); Lymph Node Swelling (); * Endo: Polyuria (); Polydypsia (); Polyphagia (); Heat/Cold Intolerance (); * Derm: Rash (X); Pruritis (X) * Neuro: Weakness (); Seizures (); Paresthesias (); Tremor (); Syncope (); * Psych: Anxiety (); Depression (X); Hallucinations (); Claustrophobia () * All/Imm: amoxicillin (Mild); clarithromycin (From BIAXIN) (Mild, RASH); urokinase (Mild, RASH) Medication: Sig/Isela Start time Last Medication Dose Route Stop Time Status Admin Alendronate Sodium 70 MG QMON 06/19 0700 AC PO Artificial Tears 2 GTT 4 TIMES/DAY 06/16 1800 AC 06/18 OPH 1119 Benzonatate 100 MG TID 06/16 1000 DC 06/17 PO 1000 Cholestyramine Resin 1 PAC BID 06/18 2200 AC PO Cholestyramine Resin 1 PAC TID 06/15 1600 DC 06/18 PO 1118 Diclofenac Sodium 1 JACQUI 4 TIMES/DAY 06/16 1800 AC 06/18 TOP 1120 Diphenhydramine HCl 50 MG ONCE ONE 06/18 1015 DC 06/18 PO 06/18 1016 1118 Diphenhydramine HCl 50 MG ONCE ONE 06/17 1345 DC 06/17 PO 06/17 1346 1423 Docusate Sodium 100 MG ONCE ONE 06/18 1300 DC PO 06/18 1301 Escitalopram Oxalate 10 MG DAILY 06/14 1000 AC 06/18 PO 1120 Guaifenesin 10 ML Q6P PRN 06/17 1400 AC 06/17 PO 2113 Levothyroxine Sodium 0.125 MG DAILY AC 06/19 0700 AC PO Levothyroxine Sodium 0.15 MG DAILY AC 06/14 0700 DC 06/18 PO 0556 Omeprazole 40 MG DAILY AC 06/15 0826 AC 06/18 PO 0556 Oxycodone HCl 5 MG Q6-PRN PRN 06/13 2315 AC 06/17 PO 1714 Potassium Chloride 40 MEQ ONCE ONE 06/18 1015 DC 06/18 PO 06/18 1016 1118 Sodium Chloride 1,000 ML .Q8H 06/13 2230 DC 06/17 IV 1422 Objective Objective: Vitals: Vital Signs Date Time Temp Pulse Resp B/P Pulse O2 O2 Flow FiO2 Ox Delivery Rate 06/18 0806 98.5 79 20 154/76 95 Room Air 06/18 0100 98.7 84 18 142/82 93 Room Air 06/18 0000 96 Room Air 06/17 1610 97.6 72 18 112/78 97 Room Air 06/17 1600 95 Room Air Intake & Output 06/18 1600 06/18 0800 06/18 0000 Intake Total 100 330 Output Total 350 900 Balance -250 -570 Intake, IV 10 Intake, Oral 100 320 Number 0 Bowel Movements Output, Urine 350 900 Physical Exam: General Appearance: Dress: (X) nl hygeine Affect: (X) nl affect, not flat, blunted, or expansive MSE: Oriented in Time, Person, Place Eyes General: (X) nl conjuctiva & lids Pupils: (X) equal, round, and reactive Fundus: () nl discs & vessels (not examined) Vision: (X) acuity & gross romero intact Abnormals: ENT: External: (X) no scars, lesions, masses. Otoscopic: () nl canals, typanic membranes (not examined) Hearing: (X) nl to finger rub Oropharynx: () nl teeth, tounge, palate, pharynx. Abnormals: - patient has bilateral hearing aids (functioning normally) GI: Palpation: (X) no massess or tenderness (X) no hep/splenomegaly Auscultation: () nl bowel sounds (not examined) Percussion: () no shifting dullness Anus/rectum : () no abnormalities or masses (not examined) () heme negative stool (not examined) Abnormals: * Pt complains of (R) abdominal pain due to cough. No tenderness on palpation of all 4 abdominal quadrants. Respiratory: Effort: (X) nl without retractions Percussion: () no dullness or hyperresonance (not examined) Palpation: () no fremitus (not examined) Auscultation: () CTAP w/o W, R, or R (not examined) Abnormals: * Productive cough. CV: Palpation: () PMI nondisplaced (not examined) Auscultation: () no murmur, gallop, or rub (not examined) Carotids: () nl intensity w/o bruit (not examined) JVD: (X) no jugular distension Pulses: () 2+/= femoral & pedal pulses Edema: () no pedal edema Abnormals: * +1 pedal edema bilaterally Neuro: Orientation: (X) A&O to person, place, time CN: () CN II-XII intact. (not examined) Sensory: (X) nl sensation throughout Reflexes: () 2++ and symmetrical throughout. (not examined) Abnormals: Skin: () no rashes, lesions, ulcers () nl turgor Abnormals: * Lower trunk urtricaria/purpuric rash getting better. * Pruritic rash on face getting better. * bilateral surgical scar on knees. Psych: (X) nl cognition () MMSE (X) nl mood and affect Abnormals: Gait: () nl gait and station (not examined - patient experiences bilateral knee pain) Results Results: Laboratory Tests 06/18/16 0725: Anion Gap 10, Estimated GFR > 60, BUN/Creatinine Ratio 16.0, Total Bilirubin 0.8 , Direct Bilirubin 0.4, AST 28, ALT 160 H, Alkaline Phosphatase 118, Total Protein 4.4 L, Albumin 2.1 L, PT 12.7 H, INR 1.21 H 06/17/16 0655: Anion Gap 7, Estimated GFR > 60, BUN/Creatinine Ratio 26.0 H, Total Bilirubin 0.6, Direct Bilirubin 0.4, AST 19, ALT 202 H, Alkaline Phosphatase 113, Total Protein 4.1 L, Albumin 1.9 L, PT 12.3, INR 1.17 06/16/16 0620: Anion Gap 9, Estimated GFR > 60, BUN/Creatinine Ratio 38.3 H, Total Bilirubin 0.6, Direct Bilirubin 0.3, AST 26, ALT 277 H, Alkaline Phosphatase 136 H, Total Protein 4.0 L, Albumin 1.9 L, PT 15.4 H, INR 1.47 H, CBC w Diff NO MAN DIFF REQ, RBC 3.93 L, MCV 83.9, MCH 28.0, RDW 15.4 H, MPV 10.4, Gran % 87.4 H , Lymphocytes % 5.1 L, Monocytes % 2.9, Eosinophils % 4.5, Basophils % 0.1, Absolute Granulocytes 7.1 H, Absolute Lymphocytes 0.4 L, Absolute Monocytes 0.2, Absolute Eosinophils 0.4, Absolute Basophils 0, PUBS MCHC 33.4 06/15/16 1230: PT 20.2 H, INR 1.94 H Assessment/Plan Assessment: Mrs. Llanos is a 76 y/o F who arrived was brought to [facility] due to multiple falls/syncopal episodes. It was found that the patient had transaminitis w/ elevated lipase and amylase. She has a past medical/surgical history of osteoporosis, hyperlipidemia, hypothyroidism, depression, cholecystectomy, and bilateral knee replacement. She currently has a URI w/ productive cough. Elevated transaminases likely due to shock liver from hypotension when presenting to the E.D. vs. Acute Cholangitis (r/o due to no evidence of current obstruction or biliary dilation on imaging) vs. Pancreatitis (r/o due to presenting sx of hypotension upon admission and trending down levels of LFTs). Plan: Problem List: 1) Syncope * Neuro consult for possible neurogenic causes of syncope/falls. * Cardio consult for possible cardiogenic causes of syncope/falls. * Echocardiogram to look for possible structural cardiac defects. * Consult PT for evaluation of patient. * Check Calcium/Vitamin D/Phosphate/Magnesium levels for msk related causes. 2) Productive Cough/URI: * Possible atypical pneumonia * Chest XRay * Isolation 3) Transaminitis * Possibly due to shock liver (hypotensive at ED). * Elevated lipase/amylase * Possible acute cholangitis -> hold ceftriaxone and flagyl until LFTs come down (trending down currently). * Acetaminophen levels * Toxicology screen * Viral hepatitis serologies * CBC & Heterophile Antibody (EBV) * Continue to hold statins until LFT are within normal range. 4) Hypothyroidism * Follow TSH / T4 levels * Possible endo consult * Continue Levothyroxine for tx of Hypothyroidism 5) Depression * Continue escitalopram 10mg 6) Osteoporosis * Continue aldronate 7) GERD/GI * Continue Omeprazole SHARRON HURST MD 06/22/162038: Attending MD Review Statement Attending Sign Off Attending Cosign Statement: I have: examined this patient, amended to note. Other Findings: The patient was seen and agree with the above assessment and plan.
[2016-06-18 14:19] LABS: ABSOLUTE BASOPHIL COUNT 0 /CUMM (0.0-0.2); ABSOLUTE EOSINOPHIL COUNT 0.3 /CUMM (0.0-0.7); ABSOLUTE GRANULOCYTE CT 6.2 /CUMM (1.4-6.5); ABSOLUTE LYMPH COUNT 4.7 /CUMM (1.2-3.4); ABSOLUTE MONOCYTE COUNT 1.4 /CUMM (0.10-0.60); BASOPHIL % 0.1 % (0.0-2.0); EOSINOPHIL % 2.5 % (0-5); GRANULOCYTE % 49.2 % (42.2-75.2); HEMATOCRIT 33.7 % (37-47); MEAN CORPUSCULAR HGB 27.6 PG (27.0-31.0); MEAN CORPUSCULAR HGB CONC 33.4 G/DL (33.0-37.0); MEAN CORPUSCULAR VOLUME 82.6 FL (81.0-99.0); MEAN PLATELET VOLUME 9.3 FL (7.4-10.4); PLATELET COUNT 182 /CUMM (130-400); RBC DISTRIBUTION WIDTH 15.6 % (11.5-14.5); RED BLOOD CELL CT 4.08 /CUMM (4.20-5.40)
[2016-06-18 14:53] LABS: WHITE BLOOD CELL COUNT 12.7 /CUMM (4.8-10.8)
[2016-06-18 15:48] VITALS: BP 140/80
[2016-06-18 22:57] VITALS: BP 120/62
--- NOTE | 2016-06-19 06:33 | PN- Housestaff ---
[facility] 06/19/16 0633: Subjective Follow-up For: Transaminitis Hypotension Recurrent falls Syncopal episodes Possible cholangitis Tele-Events Since Last Visit: Sinus Rhythm 79-81 Subjective: Ms. Llanos was seen and examined this morning she is resting comfortably in bed. Patient states that she is currently pain-free and reports no issues overnight. She does still express bilateral leg weakness. Patient continues to have pruritus secondary to generalized body rash. Patient states that she was able to have a bowel movement after being constipated yesterday. Patient denies any fever, chills, nausea, vomiting. Review of Systems Constitutional: Reports: see HPI. Denies: chills, diaphoresis, fever, malaise. Objective Last 24 Hrs of Vital Signs/I&O Vital Signs Date Time Temp Pulse Resp B/P Pulse O2 O2 Flow FiO2 Ox Delivery Rate 06/19 1604 98.1 77 18 140/88 96 Room Air 06/19 1340 97 Room Air Room Air 06/19 1330 98.6 78 18 142/84 97 Room Air Room Air 06/19 0815 98.8 80 20 142/74 95 Room Air 06/19 0800 Room Air 06/19 0000 Trach Mask 06/18 2257 99.5 85 20 120/62 94 Room Air Intake & Output 06/19 1600 06/19 0800 06/19 0000 Intake Total 240 240 420 Output Total 618 749 1280 Balance -410 -160 -630 Intake, IV 20 Intake, Oral 240 240 400 Number 0 1 Bowel Movements Output, Stool 0 Output, Urine 856 490 6980 Physical Exam General Appearance: Alert, Oriented X3, Cooperative, No Acute Distress Cardiovascular: Normal S1, Normal S2 Lungs: Clear to Auscultation Abdomen: Normal Bowel Sounds, Soft, No Tenderness, No Hepatospenomegaly Neurological: Normal Speech, Strength at 5/5 X4 Ext Extremities: No Edema, Right Arm in Sling Vascular: Normal Pulses Current Medications: Current Medications Sig/Isela Start time Last Medication Dose Route Stop Time Status Admin Alendronate Sodium 70 MG QMON 06/19 0700 DC 06/19 PO 0639 Artificial Tears 2 GTT 4 TIMES/DAY 06/16 1800 AC 06/19 OPH 1601 Cholestyramine Resin 1 PAC BID 06/18 2200 AC 06/19 PO 1005 Diclofenac Sodium 1 JACQUI 4 TIMES/DAY 06/16 1800 AC 06/19 TOP 1005 Diphenhydramine HCl 50 MG ONCE ONE 06/18 1845 DC 06/18 PO 06/18 1846 2248 Escitalopram Oxalate 10 MG DAILY 06/14 1000 AC 06/19 PO 1004 Guaifenesin 10 ML Q6P PRN 06/17 1400 AC 06/17 PO 2113 Heparin Sodium 5,000 UNIT Q8 06/18 1400 AC 06/19 (Porcine) SC 1600 Levothyroxine Sodium 0.125 MG DAILY AC 06/19 0700 AC 06/19 PO 0638 Nystatin 1 JACQUI BID PRN 06/18 1845 AC 06/18 TOP 2248 Omeprazole 40 MG DAILY AC 06/15 0826 AC 06/19 PO 0638 Oxycodone HCl 5 MG Q6-PRN PRN 06/13 2315 AC 06/18 PO 1840 Last 24 Hrs of Lab/Juan Results Last 24 Hrs of Labs/Mics: Laboratory Tests 06/19/16 1620: Urine Color STRAW, Urine Clarity CLEAR, Urine pH 6.0, Ur Specific Taylor 1.010, Urine Protein NEG, Urine Ketones NEG, Urine Nitrite NEG, Urine Bilirubin NEG, Urine Urobilinogen 0.2, Ur Leukocyte Esterase NEG, Ur Microscopic SEDIMENT EXAMINED, Urine RBC RARE, Ur Epithelial Cells RARE, Urine Hemoglobin TRACE- INTACT, Urine Glucose NEG 06/19/16 0620: Anion Gap 5, Estimated GFR > 60, BUN/Creatinine Ratio 16.0, Total Bilirubin 0.8, Direct Bilirubin 0.3, AST 27, ALT 127 H, Alkaline Phosphatase 104, Creatine Kinase < 20 L, Total Protein 4.5 L, Albumin 2.2 L, PT 12.6 H, INR 1.20 H, CBC w Diff MAN DIFF ORDERED, RBC 3.90 L, MCV 83.5, MCH 27.9, RDW 15.7 H, MPV 9.2, Gran % 40.1 L, Lymphocytes % 50.1, Monocytes % 5.8, Eosinophils % 3.6, Basophils % 0.4, Absolute Granulocytes 5.3, Segmented Neutrophils 34 L, Absolute Lymphocytes 6.6 H, Lymphocytes 52 H, Monocytes 12 H, Absolute Monocytes 0.8 H, Absolute Eosinophils 0.5, Absolute Basophils 0, Myelocytes 2 H, Platelet Estimate ADEQUATE, Normocytic RBCs VERIFIED, Normochromic RBCs VERIFIED, PUBS MCHC 33.4 Microbiology 06/19 1620 URINE ROUT: Urine Culture - RECD 06/19 112 LOWER RESP: Respiratory Culture - COLB 06/19 112 LOWER RESP: Gram Stain - COLB Orders ECHO Findings: PATIENT: BOO LLANOS PRESENT AGE: 76 PATIENT ACCOUNT NO: [id number] : 41 LOCATION: 2NB ORDERING PHYSICIAN: STAN BIRCH MD SERVICE DATE: 06/19/16- EXAM TYPE: CAT - CT HEAD WO IV CONTRAST EXAMINATION: CT HEAD WITHOUT CONTRAST CLINICAL INFORMATION: Recurrent falls and gait instability. Assess for intracranial hemorrhage, CVA or normal pressure hydrocephalus. COMPARISON: CT scan of the head 11/18/2010. TECHNIQUE: Contiguous axial imaging was performed from the skull base to vertex without intravenous administration of contrast. DLP: 600.71 mGy-cm FINDINGS: There is no evidence of acute intracranial hemorrhage or territorial infarction. No abnormal mass effect or midline shift is seen. Damon to white matter differentiation is well preserved. No extra-axial fluid collections are identified. The ventricles are normal in size. There are multiple patchy areas of low attenuation in the periventricular and subcortical white matter, slightly increased in extent compared to the prior study. There are areas of low attenuation in the basal ganglia consistent with lacunar infarcts. The study redemonstrates hyperostosis frontalis interna. There are no acute osseous findings. The soft tissues are unremarkable. There are pannus changes at the level of C1-C2, which appear more exuberant compared to the prior study, and there may be mass effect on the upper cervical spinal cord. The mastoid air cells and visualized portions of the paranasal sinuses are well aerated. IMPRESSION: 1. There are no acute bleeds or territorial infarcts. 2. The study demonstrates progressive microvascular ischemic changes. A more acute area of ischemia cannot be excluded on the basis of this study. 3. There appears to be increase in the pannus at the level of C1-C2 posteriorly and there may be mass effect on the cervical spinal cord. This could be further assessed with MRI scan of the cervical spine. DICTATED BY: MATTHEW SIMS MD Assessment/Plan Assessment: 76-year-old female with PMH of osteoporosis, HLD, hypothyroidism, depression, presented for referral by her PCP, Dr. Khalil, for evaluation of recurrent fall and possible STR placement. In the ED, she was noted to be hypotensive at 84/51, for which her BP responded well to 2 L of NS. Her labs were found to be abnormal in the ED including AST 1649, ALT 1777, Alk phos 266, GGT 147, amylase 124, lipase 664. Although she denies any symptoms, and she had cholecystectomy [place] [address] was negative for stones, the hypotension is worrisome for impending acute cholangitis. She is admitted to and the following problems addressed: # Recurrent falls Patient gavino has had 4 falls recently, some of which were due to syncope. Thus she warrants further cardiac and neuro workup. Discontinue telemetry monitoring for now. Check echocardiogram Follow Vit b12 - WNL Continue ashwin/vit D - Vit D low Continue multivitamin/iron/folate Continue oxycodone 5 mg q6p HOLD ibuprofen and Tylenol We have obtained a neurological consult for the next 24 hours will await further recommendations. CT of the head performed today. CT findings discussed with on-call physician at 6:37 PM who recommends an cervical MRI needs to be followed in the meantime no additional interventions are emergently needed. Does request that house staff call neurology tomorrow for an additional consult to make sure patient doesn't fall through the cracks. CPK also added as per neurology recommendations. #Questionable atypical pneumonia Patient continues to cough Chest x-ray done the same did not show any evidence of consolidation and/or atelectasis. #URI symptoms Check for viral influenza, flu negative Isolation. Contact precautions. #Worsening generalized rash Patient continues to report worsening rash. We'll continue to follow off antibiotics. Benadryl by mouth given when necessary. # Transaminitis, elevated lipase and amylase, hypotension, worrisome for impending acute cholangitis. Most likely cause is shock liver from hypotension on ED presentation. Given 1 time ceftriaxone and flagyl in the ED 2 L NS given in the ED LA 1.6 Follow MRCP Follow BC X 2, UC--> no growth after 2 days. Continue ceftriaxone and flagyl emprically---> stop antibiotics, lilkey contributing to drug fever patient likely has allergy to cephalosporins going to decrease fever and following off antibiotics. Rash can be present from anywhere from 10-14 days. Continue IVF Hold statin, for now. Liver enzymes continue to be trending downwards ALT 127, AST within normal limits. INR 1.20 repeat INR in a.m. # Left UPJ obstruction on CT scan Urology consult - recommended outpatient follow up; however, previous records need to be obtained to confirm whether her hydronephrosis is acute or chronic. Follow Ucx Follow renal US - [id number] hydronephrosis of the left kidney and small , 3 mm calculus is seen in the expected location of the left ureterovesical junction. However, the left ureter is not dilated on the CT exam, which shows ureteropelvic junction obstruction. # Dehydration BUN 29H, cr 0.9 on admission Continue IVF Patient is tolerating diet well. # Hypothyroidism Follow TSH, FT4 - T4 high, TSH low this admission Consider endo consult Continue levothyroxine 150 mcg # Diarrhea due to s/p Gall bladder removal. Continue cholestyramine 4 gm bid hold statin # Depression Continue escitalopram 10 mg # Osteoporosis Continue alendronate 70 q mon # Skin Continue clobetasol for vaginal Continue econazole for under breasts and inner thighs # GI Continue omeprazole 40 daily Diet: advanced to regular diet DVT ppx: ALP S FULL CODE Problem List: 1. Rash 2. Obstruction of left ureteropelvic junction (UPJ) 3. Malnutrition 4. Ischemic hepatitis 5. Recurrent falls 6. Generalized weakness 7. Leukocytosis 8. Transaminitis 9. Syncope Pain Ratin Pain Location: Bilateral Knee Pain Goal: Remain pain free Pain Plan: Tyleno PRN Roxicodone Tomorrow's Labs & Rationales: LFT monitor AST and ALT 9 Due to shock liver. BEP monitor potassiumHypo-or versus hyperkalemia. CBC monitor white cell count in this setting of leukocytosis. SHARRON HURST MD 06/19/16 2223: Attending MD Review Statement Attending Statement Attending MD Statement: examined this patient, discuss w/resident/PA/OUTSIDE CUTTER, agreed w/resident/PA/OUTSIDE CUTTER, discussed with family, reviewed EMR data (avail), discussed with nursing, discussed with case mgmt, reviewed images, amended to note Attending Assessment/Plan: The patient was seen and discussed with house staff and the patient's daughter. CT results noted (?C1- 2 finding). Will notify neurology and obtain MRI of cervical spine.
[2016-06-19 08:15] VITALS: BP 142/74
[2016-06-19 08:23] LABS: PT 12.6 SEC (9.4-12.5)
[2016-06-19 08:33] LABS: ABSOLUTE BASOPHIL COUNT 0 /CUMM (0.0-0.2); ABSOLUTE EOSINOPHIL COUNT 0.5 /CUMM (0.0-0.7); ABSOLUTE GRANULOCYTE CT 5.3 /CUMM (1.4-6.5); ABSOLUTE LYMPH COUNT 6.6 /CUMM (1.2-3.4); ABSOLUTE MONOCYTE COUNT 0.8 /CUMM (0.10-0.60); BASOPHIL % 0.4 % (0.0-2.0); EOSINOPHIL % 3.6 % (0-5); GRANULOCYTE % 40.1 % (42.2-75.2); HEMATOCRIT 32.5 % (37-47); MEAN CORPUSCULAR HGB 27.9 PG (27.0-31.0); MEAN CORPUSCULAR HGB CONC 33.4 G/DL (33.0-37.0); MEAN CORPUSCULAR VOLUME 83.5 FL (81.0-99.0); MEAN PLATELET VOLUME 9.2 FL (7.4-10.4); PLATELET COUNT 184 /CUMM (130-400); RBC DISTRIBUTION WIDTH 15.7 % (11.5-14.5); WHITE BLOOD CELL COUNT 13.3 /CUMM (4.8-10.8)
--- NOTE | 2016-06-19 09:50 | ECHOCARDIOGRAM REPORT ---
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 Normal left ventricular size and wall thickness. Normal left ventricular wall motion. Right Ventricle Normal right ventricular size and function. Right Atrium Normal right atrial size. Left Atrium Normal left atrial size. Mitral Valve Mitral valve thickened. Mild mitral regurgitation. Aortic Valve Diffuse thickening (sclerosis) of the aortic valve cusps without reduced excursion. Mild aortic regurgitation. No aortic stenosis. Tricuspid Valve Tricuspid valve not well visualized, grossly normal. Mild tricuspid regurgitation. No evidence of pulmonary hypertension. Pulmonic Valve Pulmonic valve not well visualized, grossly normal. Pericardium No pericardial effusion. Great Vessels Normal size aortic root. CONCLUSIONS Normal left ventricular ejection fraction visually estimated at > 55%. Normal left ventricular size and wall thickness. Mild mitral regurgitation. Mild aortic regurgitation. Mild tricuspid regurgitation. Sheng Carolina M.D. (Electronically Signed) Final Date: 19 June 2016 09:50 MEASUREMENTS (Male / Female) Normal Values 2D ECHO LV Diastolic Diameter PLAX 3.2 cm 4.2 - 5.9 / 3.9 - 5.3 cm LV Systolic Diameter PLAX 2.0 cm 2.1 - 4.0 cm LV Fractional Shortening PLAX 37.5 % 25 - 46 % LV Ejection Fraction 2D Teich 68.9 % IVS Diastolic Thickness 1.0 cm LVPW Diastolic Thickness 1.0 cm LV Relative Wall Thickness 0.6 RV Internal Dim ED PLAX 2.1 cm 1.9 - 3.8 cm LVOT Diameter 2.0 cm Aortic Root Diameter 2.6 cm LA Systolic Diameter LX 3.1 cm 3.0 - 4.0 / 2.7 - 3.8 cm LA Volume 53.0 cm 18 - 58 / 22 - 52 cm Ascending Aorta Diameter 2.5 cm DOPPLER AV Peak Velocity 159.0 cm/s AV Peak Gradient 10.1 mmHg AV Mean Velocity 103.0 cm/s AV Mean Gradient 5.0 mmHg AV Velocity Time Integral 33.9 cm LVOT Peak Velocity 112.0 cm/s LVOT Peak Gradient 5.0 mmHg LVOT Mean Velocity 73.6 cm/s LVOT Mean Gradient 3.0 mmHg LVOT Velocity Time Integral 23.9 cm LVOT Stroke Volume 75.1 cm AV Area Cont Eq vti 2.2 cm AV Area Cont Eq pk 2.2 cm MV Peak Velocity 125.0 cm/s MV Peak Gradient 6.3 mmHg MV Mean Velocity 67.6 cm/s MV Mean Gradient 2.0 mmHg Mitral E Point Velocity 82.9 cm/s Mitral A Point Velocity 96.7 cm/s Mitral E to A Ratio 0.9 MV PHT Velocity 88.2 cm/s MV Deceleration Boyle 458.0 cm/s MV Pressure Half Time 57.8 ms MV Area PHT 3.8 cm MV Deceleration Time 190.0 ms TR Peak Velocity 289.0 cm/s TR Peak Gradient 33.4 mmHg Right Atrial Pressure 5.0 mmHg Pulmonary Artery Systolic Pressu 38.4 mmHg Right Ventricular Systolic Press 38.4 mmHg PV Peak Velocity 153.0 cm/s PV Peak Gradient 9.4 mmHg PV Mean Velocity 100.0 cm/s PV Mean Gradient 5.0 mmHg PV Velocity Time Integral 33.3 cm LV E' Lateral Velocity 10.9 cm/s Mitral E to LV E' Lateral Ratio 7.6 LV E' Septal Velocity 5.9 cm/s Mitral E to LV E' Septal Ratio 14.2
--- NOTE | 2016-06-19 11:19 | PN- Infect Dx ---
Subjective Subjective: Afebrile. She continues to complain of a cough, with a small amount of yellow sputum, but denies any chest pain or shortness of breath. She does not report any GI or symptoms. She does not complain of knee pain. Her rash persists, with slight pruritus over the face, but none elsewhere. Objective Last 24 Hrs of Vital Signs/I&O Vital Signs Date Time Temp Pulse Resp B/P Pulse O2 O2 Flow FiO2 Ox Delivery Rate 06/19 0815 98.8 80 20 142/74 95 Room Air 06/19 0800 Room Air 06/19 0000 Trach Mask 06/18 2257 99.5 85 20 120/62 94 Room Air 06/18 1600 95 Room Air 06/18 1548 98.6 80 20 140/80 97 Room Air Intake & Output 06/19 1600 06/19 0806/19 0000 Intake Total 240 420 Output Total 400 1050 Balance -160 -630 Intake, IV 20 Intake, Oral 240 400 Number 1 Bowel Movements Output, Urine 400 1050 Physical Exam Other Physical Findings: She appears comfortable in no acute distress Skin faint maculopapular rash on her trunk and extremities Lungs are clear Heart regular rhythm with no murmur Abdomen is soft, nontender with positive bowel sounds Extremities bilateral knee swelling, with decreased range of motion, with no erythema or tenderness on palpation Results Last 24 Hours of Lab Results: Laboratory Tests 06/19 06/18 0620 1358 Chemistry Sodium (137 - 145 mmol/L) 136 L Potassium (3.5 - 5.1 mmol/L) 3.8 Chloride (98 - 107 mmol/L) 107 Carbon Dioxide (22 - 30 mmol/L) 24 Anion Gap (5 - 16) 5 BUN (7 - 17 mg/dL) 8 Creatinine (0.5 - 1.0 mg/dL) 0.5 Estimated GFR (>60 ml/min) > 60 BUN/Creatinine Ratio (7 - 25 %) 16.0 Total Bilirubin (0.2 - 1.3 mg/dL) 0.8 Direct Bilirubin (< 0.4 mg/dL) 0.3 AST (14 - 36 U/L) 27 ALT (9 - 52 U/L) 127 H Alkaline Phosphatase (<127 U/L) 104 Total Protein (6.3 - 8.2 g/dL) 4.5 L Albumin (3.5 - 5.0 g/dL) 2.2 L Coagulation PT (9.4 - 12.5 SEC) 12.6 H INR (0.90 - 1.19) 1.20 H Hematology CBC w Diff MAN DIFF ORDERED MAN DIFF ORDERED WBC (4.8 - 10.8 /CUMM) 13.3 H 12.7 H RBC (4.20 - 5.40 /CUMM) 3.90 L 4.08 L Hgb (12.0 - 16.0 G/DL) 10.9 L 11.3 L Hct (37 - 47 %) 32.5 L 33.7 L MCV (81.0 - 99.0 FL) 83.5 82.6 MCH (27.0 - 31.0 PG) 27.9 27.6 RDW (11.5 - 14.5 %) 15.7 H 15.6 H Plt Count (130 - 400 /CUMM) 184 182 MPV (7.4 - 10.4 FL) 9.2 9.3 Gran % (42.2 - 75.2 %) 40.1 L 49.2 Lymphocytes % (20.5 - 51.1 %) 50.1 37.2 Monocytes % (1.7 - 9.3 %) 5.8 11.0 H Eosinophils % (0 - 5 %) 3.6 2.5 Basophils % (0.0 - 2.0 %) 0.4 0.1 Absolute Granulocytes (1.4 - 6.5 /CUMM) 5.3 6.2 Segmented Neutrophils (42.2 - 75.2 %) 34 L Absolute Lymphocytes (1.2 - 3.4 /CUMM) 6.6 H 4.7 H Lymphocytes (20.5 - 51.1 %) 52 H Monocytes (1.7 - 9.3 %) 12 H Absolute Monocytes (0.10 - 0.60 /CUMM) 0.8 H 1.4 H Absolute Eosinophils (0.0 - 0.7 /CUMM) 0.5 0.3 Absolute Basophils (0.0 - 0.2 /CUMM) 0 0 Myelocytes (0 - 0 %) 2 H Platelet Estimate (ADEQUATE) ADEQUATE VERIFIED BY SMEAR Normocytic RBCs VERIFIED Normochromic RBCs VERIFIED Poikilocytosis 2+ Anisocytosis 1+ Ovalocytes 1+ [place] Cells 1+ PUBS MCHC (33.0 - 37.0 G/DL) 33.4 33.4 Last 24 Hours of Juan Results: No recent cultures Assessment/Plan Impression: Stable with temperatures remaining normal but with her white blood cell count elevated of unclear etiology with no obvious focus of infection. Of note her CBC diff has shifted, with 52% lymphs noted on today's CBC, suggesting a nonbacterial, possibly viral, process. She does report a cough, though her recent chest x-ray was negative. 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 Her rash has overall improved off Ceftriaxone, which was felt to be the most likely cause. Suggestion: 1. Sputum culture 2. Further evaluation, for example repeat urinalysis, urine culture and chest x -ray if white blood cell count remains elevated 3. Continue to follow off antibiotics
[2016-06-19 13:30] VITALS: BP 142/84
--- NOTE | 2016-06-19 14:21 | NUR ---
1330 PATIENT ARRIVED TOT HE FLOOR, A+O X3, ON RA, NO S/O DITRESS, DENIES PAIN, ORIENTED TO THE ROOM, BED LOW, LOCKED, CALL LIGHT IN REACH
--- NOTE | 2016-06-19 15:15 | Cons- Neurology ---
General Information and HPI Consulting Request Date of Consult: 06/19/16 Requested By: SHARRON HURST MD Reason for Consult: Falls Source of Information: patient, old records, Resident MD Exam Limitations: poor historian History of Present Illness: 76/F admitted 6 days ago due to falls. ER note reviewed, syncope suspected with BP 84/51 and treated with fluids. PMD had sent her in described as "non- ambulatory" and unable to be managed at home. apparently falls date back several weeks or months. She had been seen at [facility] just prior to this presentation and is said to have had scans which presumably included the brain. These reports are not available now, however. On presentation liver functions were quite elevated, initial CPK elevated at 400 , T4 elevated with TSH low. The patient herself gave little useful history, asking to be left alone. Allergies/Medications Allergies: Coded Allergies: amoxicillin (Mild, RASH 06/13/16) clarithromycin (From BIAXIN) (Mild, RASH 06/13/16) urokinase (Mild, RASH 06/13/16) Home Med List: Alendronate Sodium 70 MG TABLET 1 TAB PO QMON OP (Reported) in the morning, at least 30 minutes before the first food, beverage, or medication of the day Calcium Carbonate/Vitamin D3 (Caltrate 600 + D Tablet) 600 MG-800 TABLET 1 TAB PO DAILY SUPPLEMENT (Reported) Calcium Polycarbophil (Fibercon) 625 MG TABLET 625 MG PO D FIBER SUPPLEMENT ( Reported) Cholestyramine (With Sugar) (Cholestyramine Packet) 4 GRAM POWD.PACK 1 Scoopful PO BID LIVER-BILE DUCT (Reported) Clobetasol Propionate 0.05 % CREAM..G. 1 JACQUI TOP D ECZEMA (Reported) apply to affected area(s) Econazole (Econazole Nitrate) 1 % CREAM..G. 1 JACQUI TOP BID ECZEMA (Reported) apply to affected area(s) Escitalopram Oxalate 10 MG TABLET 1 TAB PO DAILY DEPRESSION (Reported) Levothyroxine Sodium 150 MCG TABLET 1 TAB PO DAILY THYROID (Reported) Multivitamin/Iron/Folic Acid (Centrum Complete Multivit Tab) 18 MG IRON-400 MCG TABLET 1 TAB PO D SUPPLEMEMT (Reported) Omeprazole 40 MG CAPSULE.DR 1 CAP PO DAILY GERD (Reported) Oxycodone HCl 5 MG TABLET 1 TAB PO 4XDAILY PRN PAIN (Reported) Simvastatin (Simvastatin*) 20 MG TABLET 1 TAB PO QPM HLD (Reported) Current Medications: Current Medications Sig/Isela Start time Last Medication Dose Route Stop Time Status Admin Alendronate Sodium 70 MG QMON 06/19 0700 DC 06/19 PO 0639 Artificial Tears 2 GTT 4 TIMES/DAY 06/16 1800 AC 06/19 OPH 1005 Cholestyramine Resin 1 PAC BID 06/18 2200 AC 06/19 PO 1005 Diclofenac Sodium 1 JACQUI 4 TIMES/DAY 06/16 1800 AC 06/19 TOP 1005 Diphenhydramine HCl 50 MG ONCE ONE 06/18 1845 DC 06/18 PO 06/18 1846 2248 Escitalopram Oxalate 10 MG DAILY 06/14 1000 AC 06/19 PO 1004 Guaifenesin 10 ML Q6P PRN 06/17 1400 AC 06/17 PO 2113 Heparin Sodium 5,000 UNIT Q8 06/18 1400 AC 06/19 (Porcine) SC 0638 Levothyroxine Sodium 0.125 MG DAILY AC 06/19 0700 AC 06/19 PO 0638 Nystatin 1 JACQUI BID PRN 06/18 1845 AC 06/18 TOP 2248 Omeprazole 40 MG DAILY AC 06/15 0826 AC 06/19 PO 0638 Oxycodone HCl 5 MG Q6-PRN PRN 06/13 2315 AC 06/18 PO 1840 Review of Systems Review of Systems: ROS: A complete medical systems review was obtained. She reports feeling generally ill. No pertinent complaints were found. She did deny headache, neck and back pain and denied bladder incontinence. Past History Travel History Traveled to [place] past 21 day No Medical History Blood Transfusion Hx: No Neurological: NONE EENT: NONE Cardiovascular: hyperlipidemia Respiratory: asthma, pneumonia Gastrointestinal: GERD Hepatic: NONE Renal: NONE Musculoskeletal: osteoporosis Psychiatric: depression Endocrine: hypothyroidism Blood Disorders: NONE Cancer(s): NONE ALLERGIST/IMMUNOLOGIST/Reproductive: NONE Surgical History Surgical History: cholecystectomy, hernia repair-incisional, knee replacement (B /L), laminectomy, spinal fusion (lumbar), Lung surgery 01/24/07: HH repair with mesh & [place] fundoplication ORIF L hip status post thoracotomy with decortication status post left hip ORIF Family History Relations & Conditions If Any: MOTHER (onset then). , Age 83; Cause: Colon cancer. FATHER (DM). , Age 79; Cause: Myocardial infarct. Psychosocial History Where Do You Live? Home Who Do You Live With? spouse (Yovanny) Services at Home: Nursing, Physical Therapy Primary Language: Malian Smoking Status: Never Smoked ETOH Use: denies use Illicit Drug Use: denies illicit drug use Living Will? no Power of Key Person/HCP? no Other Social History: . Lives with , Boni, & daughter, Alejandra. No cigarettes, EtOH, or drugs. Was independent until fx RUE post fall in 04/2016. Functional Ability ADLs Independent: dressing (until recent RUE fx), eating, toileting, bathing. 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 ECHO Results (as available) Date of last Echo 09/29/06 EF% 60 Exam & Diagnostic Data Vital Signs and I&O Vital Signs Date Time Temp Pulse Resp B/P Pulse O2 O2 Flow FiO2 Ox Delivery Rate 06/19 1340 97 Room Air Room Air 06/19 1330 98.6 78 18 142/84 97 Room Air Room Air 06/19 0815 98.8 80 20 142/74 95 Room Air 06/19 0800 Room Air 06/19 0000 Trach Mask 06/18 2257 99.5 85 20 120/62 94 Room Air 06/18 1600 95 Room Air 06/18 1548 98.6 80 20 140/80 97 Room Air Intake & Output 06/19 1600 06/19 0800 06/19 0000 Intake Total 240 240 420 Output Total 513 072 7424 Balance -10 -160 -630 Intake, IV 20 Intake, Oral 240 240 400 Number 0 1 Bowel Movements Output, Stool 0 Output, Urine 617 445 1946 Physical Exam: On exam the patient appeared generally well and in no distress. No cardiac murmur. Both legs markedly swollen with patchy red rash. Unable to palpate peripheral pulses but skin warm. Knee replacement scars. Mental status: Alert, oriented, no language errors, recall and general fund of knowledge seem intact Funduscopic deferred, patient resists exam. Visual romero full , Eye movements full without nystagmus, pupils midsize equal round and reactive to light. Facial movement normal bilaterally Facial sensation normal bilaterally Hearing intact bilaterally Uvula elevates midline Tongue protrusion is midline Shoulder shrug symmetric Motor power and tone normal in the left arm. Right arm in a sling, finger movements seem intact she can just lift both legs against gravity proximally series 3+4-/5. Plantar flexion normal on manual testing. Lower extremity tone normal. Unable to examine for fasciculations due to the edema Sensation intact to primary modes both lower extremities Tendon reflexes normal and symmetric at the biceps and knees, absent at ankles without pathologic signs Coordination no ataxia of left upper extremity Gait unable to get patient up according to notes she was a 2 person assist to even stand. 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 the legs both became very reddened and dusky Last 48 Hours of Lab Results: Laboratory Tests 06/19 06/18 0620 1358 Chemistry Sodium (137 - 145 mmol/L) 136 L Potassium (3.5 - 5.1 mmol/L) 3.8 Chloride (98 - 107 mmol/L) 107 Carbon Dioxide (22 - 30 mmol/L) 24 Anion Gap (5 - 16) 5 BUN (7 - 17 mg/dL) 8 Creatinine (0.5 - 1.0 mg/dL) 0.5 Estimated GFR (>60 ml/min) > 60 BUN/Creatinine Ratio (7 - 25 %) 16.0 Total Bilirubin (0.2 - 1.3 mg/dL) 0.8 Direct Bilirubin (< 0.4 mg/dL) 0.3 AST (14 - 36 U/L) 27 ALT (9 - 52 U/L) 127 H Alkaline Phosphatase (<127 U/L) 104 Total Protein (6.3 - 8.2 g/dL) 4.5 L Albumin (3.5 - 5.0 g/dL) 2.2 L Coagulation PT (9.4 - 12.5 SEC) 12.6 H INR (0.90 - 1.19) 1.20 H Hematology CBC w Diff MAN DIFF ORDERED MAN DIFF ORDERED WBC (4.8 - 10.8 /CUMM) 13.3 H 12.7 H RBC (4.20 - 5.40 /CUMM) 3.90 L 4.08 L Hgb (12.0 - 16.0 G/DL) 10.9 L 11.3 L Hct (37 - 47 %) 32.5 L 33.7 L MCV (81.0 - 99.0 FL) 83.5 82.6 MCH (27.0 - 31.0 PG) 27.9 27.6 RDW (11.5 - 14.5 %) 15.7 H 15.6 H Plt Count (130 - 400 /CUMM) 184 182 MPV (7.4 - 10.4 FL) 9.2 9.3 Gran % (42.2 - 75.2 %) 40.1 L 49.2 Lymphocytes % (20.5 - 51.1 %) 50.1 37.2 Monocytes % (1.7 - 9.3 %) 5.8 11.0 H Eosinophils % (0 - 5 %) 3.6 2.5 Basophils % (0.0 - 2.0 %) 0.4 0.1 Absolute Granulocytes (1.4 - 6.5 /CUMM) 5.3 6.2 Segmented Neutrophils (42.2 - 75.2 %) 34 L Absolute Lymphocytes (1.2 - 3.4 /CUMM) 6.6 H 4.7 H Lymphocytes (20.5 - 51.1 %) 52 H Monocytes (1.7 - 9.3 %) 12 H Absolute Monocytes (0.10 - 0.60 /CUMM) 0.8 H 1.4 H Absolute Eosinophils (0.0 - 0.7 /CUMM) 0.5 0.3 Absolute Basophils (0.0 - 0.2 /CUMM) 0 0 Myelocytes (0 - 0 %) 2 H Platelet Estimate (ADEQUATE) ADEQUATE VERIFIED BY SMEAR Normocytic RBCs VERIFIED Normochromic RBCs VERIFIED Poikilocytosis 2+ Anisocytosis 1+ Ovalocytes 1+ Keith Cells 1+ PUBS MCHC (33.0 - 37.0 G/DL) 33.4 33.4 06/18 0725 Chemistry Sodium (137 - 145 mmol/L) 137 Potassium (3.5 - 5.1 mmol/L) 3.5 Chloride (98 - 107 mmol/L) 106 Carbon Dioxide (22 - 30 mmol/L) 21 L Anion Gap (5 - 16) 10 BUN (7 - 17 mg/dL) 8 Creatinine (0.5 - 1.0 mg/dL) 0.5 Estimated GFR (>60 ml/min) > 60 BUN/Creatinine Ratio (7 - 25 %) 16.0 Total Bilirubin (0.2 - 1.3 mg/dL) 0.8 Direct Bilirubin (< 0.4 mg/dL) 0.4 AST (14 - 36 U/L) 28 ALT (9 - 52 U/L) 160 H Alkaline Phosphatase (<127 U/L) 118 Total Protein (6.3 - 8.2 g/dL) 4.4 L Albumin (3.5 - 5.0 g/dL) 2.1 L Coagulation PT (9.4 - 12.5 SEC) 12.7 H INR (0.90 - 1.19) 1.21 H Imaging/Other Studies: No neuroimaging present here. Assessment/Plan Assessment: Falls: Most likely multifactorial: Hypotension on admission suggests syncope was one of the initial problems. Appearance of the leg suggests lower extremity vascular disease some significance. Abnormal PFT and initial elevated CK possibility of a degree of thyroid or other myopathy. B12 deficiency ruled out. Deconditioning and past knee surgery may contribute. No bedside indication of myelopathy, Parkinson's, or other readily treatable primarily neurologic causes. Recommendations: Obtain records of scans done at [facility] for review. A normal brain CT would rule out multiple infarcts or normal pressure hydrocephalus and might reveal a microvascular changes, one of the more common causes of gait instability of the elderly. Repeat serum CPK Physical therapy, STR or ECF. Please call back if can be of further assistance. Consult Acknowledgment - Thank you for your consult request.
--- NOTE | 2016-06-19 15:45 | CT SCAN REPORT ---
EXAMINATION: CT HEAD WITHOUT CONTRAST CLINICAL INFORMATION: Recurrent falls and gait instability. Assess for intracranial hemorrhage, CVA or normal pressure hydrocephalus. COMPARISON: CT scan of the head 11/18/2010. TECHNIQUE: Contiguous axial imaging was performed from the skull base to vertex without intravenous administration of contrast. DLP: 600.71 mGy-cm FINDINGS: There is no evidence of acute intracranial hemorrhage or territorial infarction. No abnormal mass effect or midline shift is seen. Damon to white matter differentiation is well preserved. No extra-axial fluid collections are identified. The ventricles are normal in size. There are multiple patchy areas of low attenuation in the periventricular and subcortical white matter, slightly increased in extent compared to the prior study. There are areas of low attenuation in the basal ganglia consistent with lacunar infarcts. The study redemonstrates hyperostosis frontalis interna. There are no acute osseous findings. The soft tissues are unremarkable. There are pannus changes at the level of C1-C2, which appear more exuberant compared to the prior study, and there may be mass effect on the upper cervical spinal cord. The mastoid air cells and visualized portions of the paranasal sinuses are well aerated. IMPRESSION: 1. There are no acute bleeds or territorial infarcts. 2. The study demonstrates progressive microvascular ischemic changes. A more acute area of ischemia cannot be excluded on the basis of this study. 3. There appears to be increase in the pannus at the level of C1-C2 posteriorly and there may be mass effect on the cervical spinal cord. This could be further assessed with MRI scan of the cervical spine.
[2016-06-19 16:04] VITALS: BP 140/88
--- NOTE | 2016-06-19 17:00 | PN- Cardiology ---
Subjective Subjective: The patient continues to have a generalized rash. Her knee pain and facial pruritus is improving. No chest pain. No shortness of breath. She notes recent cough. No palpitations. No diaphoresis. Objective Vital Signs and I&Os Vital Signs Date Time Temp Pulse Resp B/P Pulse O2 O2 Flow FiO2 Ox Delivery Rate 06/19 1604 98.1 77 18 140/88 96 Room Air 06/19 1340 97 Room Air Room Air 06/19 1330 98.6 78 18 142/84 97 Room Air Room Air 06/19 0815 98.8 80 20 142/74 95 Room Air 06/19 0800 Room Air 06/19 0000 Trach Mask 06/18 2257 99.5 85 20 120/62 94 Room Air Intake & Output 06/19 1600 06/19 0800 06/19 0000 06/18 1600 06/18 0800 06/18 0000 Intake Total 240 240 420 240 100 330 Output Total 271 177 6461 600 350 900 Balance -410 -160 -630 -360 -250 -570 Intake, IV 20 10 Intake, Oral 240 240 400 240 100 320 Number 0 1 0 Bowel Movements Output, Stool 0 Output, Urine 826 105 8834 600 350 900 Physical Exam: Gen: The patient is in no acute distress HEENT: Normal nose, ears, and oropharynx. Pupils equal bilaterally. Conjunctiva normal. Neck: Supple with no JVD, no masses, and no thyromegaly Lungs: Clear to auscultation with normal respiratory effort Heart: RRR, S1, S2, no murmurs. 1+ peripheral edema, 2+ pulses in the lower extremities bilaterally Abdomen: Soft, nontender, no masses. No hepatomegaly. No splenomegaly Extremities: No clubbing or cyanosis. Normal muscle strength in the upper and lower extremities Skin: Normal skin turgor with no skin ulcers or lesions noted. Neuro: Cranial nerves intact. Sensation intact Current Medications: Current Medications Sig/Isela Start time Last Medication Dose Route Stop Time Status Admin Alendronate Sodium 70 MG QMON 06/19 0700 DC 06/19 PO 0639 Artificial Tears 2 GTT 4 TIMES/DAY 06/16 1800 AC 06/19 OPH 1601 Cholestyramine Resin 1 PAC BID 06/18 2200 AC 06/19 PO 1005 Diclofenac Sodium 1 JACQUI 4 TIMES/DAY 06/16 1800 AC 06/19 TOP 1005 Diphenhydramine HCl 50 MG ONCE ONE 06/18 1845 DC 06/18 PO 06/18 1846 2248 Escitalopram Oxalate 10 MG DAILY 06/14 1000 AC 06/19 PO 1004 Guaifenesin 10 ML Q6P PRN 06/17 1400 AC 06/17 PO 2113 Heparin Sodium 5,000 UNIT Q8 06/18 1400 AC 06/19 (Porcine) SC 1600 Levothyroxine Sodium 0.125 MG DAILY AC 06/19 0700 AC 06/19 PO 0638 Nystatin 1 JACQUI BID PRN 06/18 1845 06/18 TOP 2248 Omeprazole 40 MG DAILY AC 06/15 0826 AC 06/19 PO 0638 Oxycodone HCl 5 MG Q6-PRN PRN 06/13 2315 AC 06/18 PO 1840 Results Last 48 Hrs of Labs/Mics: Laboratory Tests 06/19/16 1620: Urine Color Pending, Urine Clarity Pending, Urine pH Pending, Ur Specific [place] Pending, Urine Protein Pending, Urine Ketones Pending, Urine Nitrite Pending, Urine Bilirubin Pending, Urine Urobilinogen Pending, Ur Leukocyte Esterase Pending, Ur Microscopic SEDIMENT EXAMINED, Urine RBC Pending, Urine Hemoglobin Pending, Urine Glucose Pending 06/19/16 0620: Anion Gap 5, Estimated GFR > 60, BUN/Creatinine Ratio 16.0, Total Bilirubin 0.8, Direct Bilirubin 0.3, AST 27, ALT 127 H, Alkaline Phosphatase 104, Creatine Kinase < 20 L, Total Protein 4.5 L, Albumin 2.2 L, PT 12.6 H, INR 1.20 H, CBC w Diff MAN DIFF ORDERED, RBC 3.90 L, MCV 83.5, MCH 27.9, RDW 15.7 H, MPV 9.2, Gran % 40.1 L, Lymphocytes % 50.1, Monocytes % 5.8, Eosinophils % 3.6, Basophils % 0.4, Absolute Granulocytes 5.3, Segmented Neutrophils 34 L, Absolute Lymphocytes 6.6 H, Lymphocytes 52 H, Monocytes 12 H, Absolute Monocytes 0.8 H, Absolute Eosinophils 0.5, Absolute Basophils 0, Myelocytes 2 H, Platelet Estimate ADEQUATE, Normocytic RBCs VERIFIED, Normochromic RBCs VERIFIED, PUBS MCHC 33.4 06/18/16 1358: CBC w Diff MAN DIFF ORDERED, RBC 4.08 L, MCV 82.6, MCH 27.6, RDW 15.6 H, MPV 9.3, Gran % 49.2, Lymphocytes % 37.2, Monocytes % 11.0 H, Eosinophils % 2.5, Basophils % 0.1, Absolute Granulocytes 6.2, Absolute Lymphocytes 4.7 H, Absolute Monocytes 1.4 H, Absolute Eosinophils 0.3, Absolute Basophils 0, Platelet Estimate VERIFIED BY SMEAR, Poikilocytosis 2+, Anisocytosis 1+, Ovalocytes 1+, Keith Cells 1+, PUBS MCHC 33.4 06/18/16 0725: Anion Gap 10, Estimated GFR > 60, BUN/Creatinine Ratio 16.0, Total Bilirubin 0.8 , Direct Bilirubin 0.4, AST 28, ALT 160 H, Alkaline Phosphatase 118, Total Protein 4.4 L, Albumin 2.1 L, PT 12.7 H, INR 1.21 H Recent Imaging Studies: Echocardiogram: Normal left ventricular ejection fraction visually estimated at > 55%. Normal left ventricular size and wall thickness. Mild mitral regurgitation. Mild aortic regurgitation. Mild tricuspid regurgitation. Head CT: 1. There are no acute bleeds or territorial infarcts. 2. The study demonstrates progressive microvascular ischemic changes. A more acute area of ischemia cannot be excluded on the basis of this study. 3. There appears to be increase in the pannus at the level of C1-C2 posteriorly and there may be mass effect on the cervical spinal cord. This could be further assessed with MRI scan of the cervical spine. Assessment/Plan Assessment/Plan Assessment: 1. Left UPJ obstruction 2. Possible cholangitis 3. Volume depletion, improved with IV fluids 4. Status post multiple falls and possible syncope, likely secondary to volume depletion and possible infection. No arrhythmias seen on telemetry. 5. Ruled out for myocardial infarction with negative troponin 2 6. Hypokalemia 7. Normal echocardiogram Plan: * Given the normal echocardiogram and the otherwise negative cardiac workup, her recent issues are unlikely to be secondary to a cardiac etiology. * No further inpatient cardiac workup is needed unless she has new symptoms. Continue telemetry? Not applicable
--- NOTE | 2016-06-19 18:03 | Cons- Rheumatology ---
General Information and HPI Consulting Request Date of Consult: 06/19/16 Requested By: SHARRON HURST MD Reason for Consult: Evaluate her arthritic complaints Source of Information: patient, family, old records Exam Limitations: physical impairment (INABILITY TO STAND BECAUSE OF ) History of Present Illness: This is a 76-year-old patient of mine who was admitted to the hospital 6 days ago with the chief complaint of being unable to stand because of leg weakness. She went from I office to the emergency room where she was found to be hypotensive as well as febrile to over 101 and admitted for further evaluation with the finding of elevated liver function tests. I'm asked to see her in rheumatologic consultation because of pain in her legs specifically her knees. She has a variety of medical problems including osteoarthritis status post bilateral knee arthroplasties, status post cholecystectomy, hypothyroidism, and chronic diarrhea, she had been ambulatory up until relatively recently. She had fallen and suffered a fracture of her right elbow I believe her radial head. She has fallen on at least one or 2 occasions since that time. This is not because of pain but rather weakness of her legs. 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 Allergies/Medications Allergies: Coded Allergies: amoxicillin (Mild, RASH 06/13/16) clarithromycin (From BIAXIN) (Mild, RASH 06/13/16) urokinase (Mild, RASH 06/13/16) Home Med List: Alendronate Sodium 70 MG TABLET 1 TAB PO QMON OP (Reported) in the morning, at least 30 minutes before the first food, beverage, or medication of the day Calcium Carbonate/Vitamin D3 (Caltrate 600 + D Tablet) 600 MG-800 TABLET 1 TAB PO DAILY SUPPLEMENT (Reported) Calcium Polycarbophil (Fibercon) 625 MG TABLET 625 MG PO D FIBER SUPPLEMENT ( Reported) Cholestyramine (With Sugar) (Cholestyramine Packet) 4 GRAM POWD.PACK 1 Scoopful PO BID LIVER-BILE DUCT (Reported) Clobetasol Propionate 0.05 % CREAM..G. 1 JACQUI TOP D ECZEMA (Reported) apply to affected area(s) Econazole (Econazole Nitrate) 1 % CREAM..G. 1 JACQUI TOP BID ECZEMA (Reported) apply to affected area(s) Escitalopram Oxalate 10 MG TABLET 1 TAB PO DAILY DEPRESSION (Reported) Levothyroxine Sodium 150 MCG TABLET 1 TAB PO DAILY THYROID (Reported) Multivitamin/Iron/Folic Acid (Centrum Complete Multivit Tab) 18 MG IRON-400 MCG TABLET 1 TAB PO D SUPPLEMEMT (Reported) Omeprazole 40 MG CAPSULE. 1 CAP PO DAILY GERD (Reported) Oxycodone HCl 5 MG TABLET 1 TAB PO 4XDAILY PRN PAIN (Reported) Simvastatin (Simvastatin*) 20 MG TABLET 1 TAB PO QPM HLD (Reported) Review of Systems Review of Systems: She denies swelling of any joints such as her hands wrists or ankles. She currently has a rash but this developed after being in the hospital and is likely due to the IV antibiotics she received in the emergency room. 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 , Age 83; Cause: Colon cancer. FATHER (DM). , Age 79; Cause: Myocardial infarct. Psychosocial History Where Do You Live? Home Who Do You Live With? spouse (Yovanny) Services at Home: Nursing, Physical Therapy Primary Language: French Smoking Status: Never Smoked ETOH Use: denies use Illicit Drug Use: denies illicit drug use Living Will? no Power of Equipment Engineering Technician/HCP? no Other Social History: . Lives with , Boni, & daughter, Alejandra. No cigarettes, EtOH, or drugs. Was independent until fx RUE post fall in 04/2016. Functional Ability ADLs Independent: dressing (until recent RUE fx), eating, toileting, bathing. Ambulation: independent (until recent fall HANDYMAN) IADLs Independent: shopping (until recent fall HANDYMAN), housework, finances, food prep, telephone, transportation, medication admin. 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 ECHO Results (as available) Date of last Echo 09/29/06 EF% 60 Exam & Diagnostic Data Vital Signs and I&O Vital Signs Date Time Temp Pulse Resp B/P Pulse O2 O2 Flow FiO2 Ox Delivery Rate 06/19 1604 98.1 77 18 140/88 96 Room Air 06/19 1340 97 Room Air Room Air 06/19 1330 98.6 78 18 142/84 97 Room Air Room Air 06/19 0815 98.8 80 20 142/74 95 Room Air 06/19 0800 Room Air 06/19 0000 Trach Mask 06/18 2257 99.5 85 20 120/62 94 Room Air Intake & Output 06/19 1600 06/19 0800 06/19 0000 Intake Total 240 240 420 Output Total 079 703 4986 Balance -410 160 -630 Intake, IV 20 Intake, Oral 240 240 400 Number 0 1 Bowel Movements Output, Stool 0 Output, Urine [phone] Physical Exam: On examination is a well-developed well-nourished female who overall has lost a fair amount of weight as evidenced by thinning of her face. Her hands reveal minor degenerative changes but no signs of inflammatory arthritis her wrists are within normal limits on the left but the right has some swelling and edema from her right arm being in a sling her right elbow is unable to be moved because of the sling but her left elbow is normal as are her shoulders. Her hips have fairly good range of motion her knees have well-healed old scars from knee arthroplasties is no swelling or tenderness appreciated that she could flex them there is impressive erythematous dark macular rash over her lower extremities from her knees down to her ankles. Assessment/Plan Assessment: Recesses that she has generalized arthritis but there is nothing specific in her knees to suspect anything such as loosening of her prosthetic joints. She does not have an inflammatory arthritis. Apparently her hypotension, fever, and elevated liver function tests have resolved although the exact causes are not understood. It is not clear why she is unable to stand neurology consultation has been obtained she is able to actively flex her hips and knees so I find her strength in her legs to be normal but I would defer to the neurology exam. Recommendations: Physical therapy should be involved and it seems like she will be headed for rehabilitation as she is certainly in no condition to return home where she lives with her . Consult Acknowledgment - Thank you for your consult request.
--- NOTE | 2016-06-19 18:35 | Event Note ---
Event Note Event Note: 6:32 PM. Following results from this patient's CT scan I called the neurologist motion picture camera operator and requested a call back. Dr. Klein return my call and we had a conversation regarding the recent findings. He recommends an MRI (cervical spine without gadolinium) can be ordered on 2016. He also recommends the oracle data warehouse developer in charge or Marketing Administrative Assistant following this patient call the neurologic service tomorrow 06/20/2016, an additional time to ensure sure that this test and findings do not fall through the cracks. The above will be signed out to the night team. Above noted.
--- NOTE | 2016-06-19 19:17 | Transfer of Care Summary ---
Hospital Course Course Hospital Course: 76-year-old female with PMH of osteoporosis, HLD, hypothyroidism, depression, presented for referral by her PCP, Dr. Khalil, for evaluation of recurrent fall and possible STR placement. In the ED, she was noted to be hypotensive at 84/51, for which her BP responded well to 2 L of NS. Her labs were found to be abnormal in the ED including AST 1649, ALT 1777, Alk phos 266, GGT 147, amylase 124, lipase 664. Although she denies any symptoms, and she had cholecystectomy [place] [address] was negative for stones, the hypotension is worrisome for impending acute cholangitis. She is admitted to and the following problems addressed: # Recurrent falls The patient was originally admitted to general medicine she was transferred to telemetry for further workup to rule out any arrhythmias as the causes of her syncope. These have been ruled out and cardiology is signed out. A formal neurological consult was obtained today who recommends additional imaging studies as the source of these falls. # Transaminitis, elevated lipase and amylase, hypotension, worrisome for impending acute cholangitis. Most likely cause is shock liver from hypotension on ED presentation. There was is a high index of suspicion that the patient's elevated liver enzymes might be in the setting of cholangitis. GI did see and evaluate the patient and signed off on any issues. We have monitored the patient's LFTs and INR on a daily basis. These seem to be normalizing to normal physiological values. #Drug fever A formal infectious diseases consult propose that the patient may have developed a rash and fevers due to possible drug reaction. Since then the patient has been followed off antibiotics. Symptoms of a drug rash might be present for another 10-14 days. The patient has however continued to spike an elevated white count pancultures have been ordered. 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 Follow renal US - Lroymxgv-rg-rixjgn hydronephrosis of the left kidney and small , 3 mm calculus is seen in the expected location of the left ureterovesical junction. However, the left ureter is not dilated on the CT exam, which shows ureteropelvic junction obstruction. # Hypothyroidism Continue levothyroxine 150 mcg # Diarrhea due to s/p Gall bladder removal. Continue cholestyramine 4 gm bid. A higher dose ends up giving her constipation. # Depression Continue escitalopram 10 mg # Osteoporosis Continue alendronate 70 q mon. Patient received this medication today however was discontinued owing to this medication is not recommended as an inpatient medication. She can continue this medication as an outpatient. # Skin Continue nystatin Assessment/Plan: 1) The source of the patient's syncope continues to be a priority for the patient and her family. A formal neurological consult was obtained today on . A CT of the head revealed: There appears to be increase in the pannus at the level of C1-C2 posteriorly and there may be mass effect on the cervical spinal cord. This could be further assessed with MRI scan of the cervical spine. A callback done with the on-call physician recommended follow-up with an MRI imaging studies. The team taking over care for this patient will also need to reconsult neurology in the a.m. of 06/20/2016 to ensure patient has continued follow-up.
[2016-06-19 23:45] VITALS: BP 130/72
--- NOTE | 2016-06-20 07:03 | PN- Housestaff ---
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 She continues to endorse mild neck /right arm pain. She also endorses that her bilateral lower extremity and her left arm rash appear the same as yesterday without much improvement. She denies fever, chills, chest pain, shortness of breath, weakness. Review of Systems Constitutional: Denies: chills, fever. EENTM: Denies: blurred vision, visual changes, hearing changes. Cardiovascular: Denies: chest pain, palpitations. Respiratory: Denies: cough, short of breath. Gastrointestinal: Denies: abdominal pain, bloating, constipation, diarrhea. Genitourinary: Denies: dysuria. Musculoskeletal: Reports: neck pain. Skin: Reports: rash. Neurological/Psychological: Denies: anxiety, numbness. Hematologic/Endocrine: Denies: bruising. Objective Last 24 Hrs of Vital Signs/I&O Vital Signs Date Time Temp Pulse Resp B/P Pulse O2 O2 Flow FiO2 Ox Delivery Rate 06/20 1617 98.5 84 17 128/78 94 Room Air 06/20 1148 Room Air 06/20 0842 98.1 82 20 144/80 94 Room Air 06/19 2345 98.5 80 18 130/72 94 Room Air Intake & Output 06/20 1600 06/20 0800 06/20 0000 Intake Total 900 Output Total 300 500 300 Balance 600 -500 -300 Intake, Oral 900 Number 1 Bowel Movements Output, Urine 300 500 300 Physical Exam General Appearance: Alert, Oriented X3, Cooperative, No Acute Distress Skin: Bilateral lower extremity petechial rash without edema from ankle to below knees. Rash also noted LUE. No facial rash or plethora noted. HEENT: Atraumatic, Mucous Membr. moist/pink Neck: Supple, No LAD Lymphatic: Cervical nl Cardiovascular: Normal S1, Normal S2 Lungs: Clear to Auscultation, Normal Air Movement Abdomen: Normal Bowel Sounds, Soft, No Tenderness Neurological: Normal Speech Extremities: No Clubbing, No Cyanosis Vascular: Pulses Symmetrical Current Medications: Current Medications Sig/Isela Start time Last Medication Dose Route Stop Time Status Admin Artificial Tears 2 GTT 4 TIMES/DAY 01/13 1800 AC 06/20 OPH 1405 Cholestyramine Resin 1 PAC 1100,1700 06/20 1100 DC PO Cholestyramine Resin 1 PAC 1100,1700 06/19 1830 AC 06/20 PO 1654 Cholestyramine Resin 1 PAC BID 06/18 2200 DC 06/19 PO 1005 Diclofenac Sodium 1 JACQUI 4 TIMES/DAY 06/16 1800 AC 06/20 TOP 1405 Escitalopram Oxalate 10 MG DAILY 06/14 1000 AC 06/20 PO 0824 Guaifenesin 10 ML Q6P PRN 06/17 1400 AC 06/17 PO 2113 Heparin Sodium 5,000 UNIT Q8 06/18 1400 AC 06/20 (Porcine) SC 1404 Levothyroxine Sodium 0.125 MG DAILY AC 06/19 0700 AC 06/20 PO 0519 Nystatin 1 JACQUI BID PRN 06/18 1845 AC 06/18 TOP 2248 Omeprazole 40 MG DAILY AC 06/15 0826 AC 06/20 PO 0518 Oxycodone HCl 5 MG Q6-PRN PRN 06/13 2315 AC 06/20 PO 0824 Last 24 Hrs of Lab/Juan Results Last 24 Hrs of Labs/Mics: Laboratory Tests 06/20/16 0658: Anion Gap 3 L, Estimated GFR > 60, BUN/Creatinine Ratio 26.0 H, Total Bilirubin 0.6, Direct Bilirubin 0.2, AST 19, ALT 101 H, Alkaline Phosphatase 98 , Total Protein 4.8 L, Albumin 2.3 L, CBC w Diff MAN DIFF ORDERED, RBC 4.01 L , MCV 83.5, MCH 27.9, RDW 15.8 H, MPV 8.8, Gran % 51.5, Lymphocytes % 40.5, Monocytes % 4.4, Eosinophils % 3.3, Basophils % 0.3, Absolute Granulocytes 7.1 H, Segmented Neutrophils 56, Band Neutrophils 1, Absolute Lymphocytes 5.6 H, Lymphocytes 37, Monocytes 2, Absolute Monocytes 0.6, Eosinophils 3, Absolute Eosinophils 0.4, Absolute Basophils 0, Metamyelocytes 1, Nucleated RBCs 1 H, Platelet Estimate ADEQUATE, Poikilocytosis 1+, Anisocytosis 1+, PUBS MCHC 33.4 Microbiology 06/20 1338 LOWER RESP: Respiratory Culture - COLB 06/20 1337 LOWER RESP: Gram Stain - COLB Orders ECHO Findings: CONCLUSIONS Normal left ventricular ejection fraction visually estimated at > 55%. Normal left ventricular size and wall thickness. Mild mitral regurgitation. Mild aortic regurgitation. Mild tricuspid regurgitation. Miscellaneous Findings: EXAMINATION: CT HEAD WITHOUT CONTRAST CLINICAL INFORMATION: Recurrent falls and gait instability. Assess for intracranial hemorrhage, CVA or normal pressure hydrocephalus. COMPARISON: CT scan of the head 11/18/2010. TECHNIQUE: Contiguous axial imaging was performed from the skull base to vertex without intravenous administration of contrast. DLP: 600.71 mGy-cm FINDINGS: There is no evidence of acute intracranial hemorrhage or territorial infarction. No abnormal mass effect or midline shift is seen. Damon to white matter differentiation is well preserved. No extra-axial fluid collections are identified. The ventricles are normal in size. There are multiple patchy areas of low attenuation in the periventricular and subcortical white matter, slightly increased in extent compared to the prior study. There are areas of low attenuation in the basal ganglia consistent with lacunar infarcts. The study redemonstrates hyperostosis frontalis interna. There are no acute osseous findings. The soft tissues are unremarkable. There are pannus changes at the level of C1-C2, which appear more exuberant compared to the prior study, and there may be mass effect on the upper cervical spinal cord. The mastoid air cells and visualized portions of the paranasal sinuses are well aerated. IMPRESSION: 1. There are no acute bleeds or territorial infarcts. 2. The study demonstrates progressive microvascular ischemic changes. A more acute area of ischemia cannot be excluded on the basis of this study. 3. There appears to be increase in the pannus at the level of C1-C2 posteriorly and there may be mass effect on the cervical spinal cord. This could be further assessed with MRI scan of the cervical spine. Renal US: IMPRESSION: 1. Right kidney is normal. 2. Iyfenkhq-eo-ahrtly hydronephrosis of the left kidney. 3. Small, 3 mm calculus is seen in the expected location of the left ureterovesical junction. However, the left ureter is not dilated on the CT exam, which shows ureteropelvic junction obstruction. Assessment/Plan Assessment: 76-year-old female with PMH of osteoporosis, HLD, hypothyroidism, depression, presented for referral by her PCP, Dr. Khalil, for evaluation of recurrent fall and possible STR placement. In the ED, she was noted to be hypotensive at 84/51, for which her BP responded well to 2 L of NS. Her labs were found to be abnormal in the ED including AST 1649, ALT 1777, Alk phos 266, GGT 147, amylase 124, lipase 664. Although she denies any symptoms, and she had cholecystectomy in [address] was negative for stones, the hypotension is worrisome for impending acute cholangitis. She is admitted to and the following problems addressed: # Recurrent falls * Patient gavino has had 4 falls prior to admission for which she was admitted to telemetry and arrhythmia was ruled out as a cause of syncope * Echo showed normal EF without any gross abnormalities. * Neuro consult placed and suggested head CT which was done and showed no NPH/ acute infarct * CT did show an increase in the pannus at the level of C1-S9yqenlyzpnbj and there may be mass effect on the cervical spinal cord. * MRI neck ordered for tomorrow to further evaluate this lesion, no immediate intervention required * CK low to <20 * Patient has worked with PT who suggest STR, patient pending placement after MRi # Transaminitis, elevated lipase and amylase, hypotension. * Likely represents ischemic hepatitis from hypotension * Transaminitis improving with AST/ALT trending towards normal * GI consult placed an appreciated * Avoid hepatotoxins and NSAIDS #Drug fever * A formal infectious diseases consult propose that the patient may have developed a rash and fevers due to possible drug reaction. * Antibiotics discontinued on 06/15/15 and symptoms of a drug rash may be present for up to 10-14 days. * The patient has however continued to spike an elevated white count. We will continue to trend with CBC and follow up pancultures. * Repeat CXR if cough returns. 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 * Renal US - Bszmpqwq-um-zzhhnl hydronephrosis of the left kidney and small, 3 mm calculus is seen in the expected location of the left ureterovesical junction. However, the left ureter is not dilated on the CT exam, which shows ureteropelvic junction obstruction. # Hypothyroidism * Continue levothyroxine 150 mcg # Diarrhea due to s/p Gall bladder removal. * Continue cholestyramine 4 gm bid. A higher dose ends up giving her constipation. # Depression * Continue escitalopram 10 mg # Osteoporosis * Continue alendronate 70 Q Mon. However was discontinued owing to this medication is not recommended as an inpatient medication. She can continue this medication as an outpatient. # Skin * Continue nystatin FULL CODE DVTP: Heparin SC Heart Healthy Mild-mod pain pathway Problem List: 1. Rash 2. Obstruction of left ureteropelvic junction (UPJ) 3. Malnutrition 4. Ischemic hepatitis 5. Recurrent falls 6. Generalized weakness 7. Leukocytosis 8. Transaminitis 9. Syncope Pain Ratin Pain Location: Right arm, neck, bilateral knees. Pain Goal: Pain 4 or less Pain Plan: Tyleno PRN Roxicodone Tomorrow's Labs & Rationales: BEP monitor potassium. CBC monitor white cell count in this setting of leukocytosis. NAREN ROJAS MD 06/20/16 7678: Attending MD Review Statement Attending Statement Attending MD Statement: examined this patient, discuss w/resident/PA/CHRISTIAN SCIENCE READER, agreed w/resident/PA/CHRISTIAN SCIENCE READER, reviewed EMR data (avail), discussed with nursing, discussed with case mgmt, amended to note Attending Assessment/Plan: Patient seen and examined. Resting comfortably not in acute distress. Afebrile and hemodynamically stable. Her transaminitis continues resolved. Likely secondary to hypotension. Other infections workup has been negative. Her diffuse rash is improving and remains predominantly in her legs. It is likely drug rash and has been improving since discontinuation of her Rocephin. She denies any pruritus. Patient reports complaints of neck pain in prior to her fall. CT scan results noted. MRI of the cervical spine will be completed tomorrow. Will follow findings with the neurology service. She remains afebrile and hemodynamically stable with no acute intervention planned following review of her MRI she may be discharged tomorrow to SNF for short-term rehabilitation.
[2016-06-20 07:54] LABS: ABSOLUTE BASOPHIL COUNT 0 /CUMM (0.0-0.2); ABSOLUTE EOSINOPHIL COUNT 0.4 /CUMM (0.0-0.7); ABSOLUTE GRANULOCYTE CT 7.1 /CUMM (1.4-6.5); ABSOLUTE LYMPH COUNT 5.6 /CUMM (1.2-3.4); ABSOLUTE MONOCYTE COUNT 0.6 /CUMM (0.10-0.60); BASOPHIL % 0.3 % (0.0-2.0); EOSINOPHIL % 3.3 % (0-5); GRANULOCYTE % 51.5 % (42.2-75.2); HEMATOCRIT 33.5 % (37-47); MEAN CORPUSCULAR HGB 27.9 PG (27.0-31.0); MEAN CORPUSCULAR HGB CONC 33.4 G/DL (33.0-37.0); MEAN CORPUSCULAR VOLUME 83.5 FL (81.0-99.0); MEAN PLATELET VOLUME 8.8 FL (7.4-10.4); PLATELET COUNT 210 /CUMM (130-400); RBC DISTRIBUTION WIDTH 15.8 % (11.5-14.5); RED BLOOD CELL CT 4.01 /CUMM (4.20-5.40); WHITE BLOOD CELL COUNT 13.7 /CUMM (4.8-10.8)
[2016-06-20 08:42] VITALS: BP 144/80
--- NOTE | 2016-06-20 10:32 | PN- Neurology ---
Subjective Subjective: CT of brain reveals possible stenosis at C1-C2. Patient denies neck pain now but was suffering significant pain a month or so ago Review of Systems: no bladder incontinence Objective Vital Signs and I&Os Vital Signs Date Time Temp Pulse Resp B/P Pulse O2 O2 Flow FiO2 Ox Delivery Rate 06/20 0842 98.1 82 20 144/80 94 Room Air 06/19 2345 98.5 80 18 130/72 94 Room Air 06/19 1604 98.1 77 18 140/88 96 Room Air 06/19 1340 97 Room Air Room Air 06/19 1330 98.6 78 18 142/84 97 Room Air Room Air Intake & Output 06/20 1600 06/20 0800 06/20 0000 06/19 1600 06/19 0800 06/19 0000 Intake Total 240 240 420 Output Total 500 300 897 509 4160 Balance -500 -300 -410 -160 -630 Intake, IV 20 Intake, Oral 240 240 400 Number 1 0 1 Bowel Movements Output, Stool 0 Output, Urine 500 300 194 145 0619 Physical Exam: Alert, passive CROM reduced. Legs both > antigravity prox, normal power at ankles, DTR 1+ at knees and ankles, no babinski signs, no sensory loss to proprioception or light touch in feet/toes Legs very swollen. Current Medications: Current Medications Sig/Isela Start time Last Medication Dose Route Stop Time Status Admin Artificial Tears 2 GTT 4 TIMES/DAY 06/16 1800 AC 06/20 OPH 0824 Cholestyramine Resin 1 PAC 1100,1700 06/20 1100 DC PO Cholestyramine Resin 1 PAC 1100,1700 06/19 1830 AC 06/19 PO 1830 Cholestyramine Resin 1 PAC BID 06/18 2200 DC 06/19 PO 1005 Diclofenac Sodium 1 JACQUI 4 TIMES/DAY 06/16 1800 AC 06/20 TOP 0824 Escitalopram Oxalate 10 MG DAILY 06/14 1000 AC 06/20 PO 0824 Guaifenesin 10 ML Q6P PRN 06/17 1400 AC 06/17 PO 2113 Heparin Sodium 5,000 UNIT Q8 06/18 1400 AC 06/20 (Porcine) SC 0518 Levothyroxine Sodium 0.125 MG DAILY AC 06/19 0700 AC 06/20 PO 0519 Nystatin 1 JACQUI BID PRN 06/18 1845 AC 06/18 TOP 2248 Omeprazole 40 MG DAILY AC 06/15 0826 AC 06/20 PO 0518 Oxycodone HCl 5 MG Q6-PRN PRN 06/13 2315 06/20 PO 0824 Results Last 24 Hours of Lab Results: Laboratory Tests 06/20 06/19 0658 1620 Chemistry Sodium (137 - 145 mmol/L) 134 L Potassium (3.5 - 5.1 mmol/L) 3.7 Chloride (98 - 107 mmol/L) 102 Carbon Dioxide (22 - 30 mmol/L) 29 Anion Gap (5 - 16) 3 L BUN (7 - 17 mg/dL) 13 Creatinine (0.5 - 1.0 mg/dL) 0.5 Estimated GFR (>60 ml/min) > 60 BUN/Creatinine Ratio (7 - 25 %) 26.0 H Total Bilirubin (0.2 - 1.3 mg/dL) 0.6 Direct Bilirubin (< 0.4 mg/dL) 0.2 AST (14 - 36 U/L) 19 ALT (9 - 52 U/L) 101 H Alkaline Phosphatase (<127 U/L) 98 Total Protein (6.3 - 8.2 g/dL) 4.8 L Albumin (3.5 - 5.0 g/dL) 2.3 L Hematology CBC w Diff MAN DIFF ORDERED WBC (4.8 - 10.8 /CUMM) 13.7 H RBC (4.20 - 5.40 /CUMM) 4.01 L Hgb (12.0 - 16.0 G/DL) 11.2 L Hct (37 - 47 %) 33.5 L MCV (81.0 - 99.0 FL) 83.5 MCH (27.0 - 31.0 PG) 27.9 RDW (11.5 - 14.5 %) 15.8 H Plt Count (130 - 400 /CUMM) 210 MPV (7.4 - 10.4 FL) 8.8 Gran % (42.2 - 75.2 %) 51.5 Lymphocytes % (20.5 - 51.1 %) 40.5 Monocytes % (1.7 - 9.3 %) 4.4 Eosinophils % (0 - 5 %) 3.3 Basophils % (0.0 - 2.0 %) 0.3 Absolute Granulocytes (1.4 - 6.5 /CUMM) 7.1 H Segmented Neutrophils (42.2 - 75.2 %) 56 Band Neutrophils (0.0 - 5.0 %) 1 Absolute Lymphocytes (1.2 - 3.4 /CUMM) 5.6 H Lymphocytes (20.5 - 51.1 %) 37 Monocytes (1.7 - 9.3 %) 2 Absolute Monocytes (0.10 - 0.60 /CUMM) 0.6 Eosinophils (0 - 5.0 %) 3 Absolute Eosinophils (0.0 - 0.7 /CUMM) 0.4 Absolute Basophils (0.0 - 0.2 /CUMM) 0 Metamyelocytes (0.0 - 1.0 %) 1 Nucleated RBCs (0.0 - 0.0 /100WBC) 1 H Platelet Estimate (ADEQUATE) ADEQUATE Poikilocytosis 1+ Anisocytosis 1+ PUBS MCHC (33.0 - 37.0 G/DL) 33.4 Urines Urine Color (YEL,AMB,STR) STRAW Urine Clarity (CLEAR) CLEAR Urine pH (5.0 - 8.0) 6.0 Ur Specific [place] (1.001 - 1.035) 1.010 Urine Protein (NEG,<30 MG/DL) NEG Urine Ketones (NEG) NEG Urine Nitrite (NEG) NEG Urine Bilirubin (NEG) NEG Urine Urobilinogen (0.1 - 1.0 EU/dl) 0.2 Ur Leukocyte Esterase (NEG) NEG Ur Microscopic SEDIMENT EXAMINED Urine RBC (0 - 5 /HPF) RARE Ur Epithelial Cells (NONE,FEW) RARE Urine Hemoglobin (NEG) TRACE-INTACT Urine Glucose (N MG/DL) NEG Recent Imaging Studies: CT BRAIN: There are pannus changes at the level of C1-C2, which appear more exuberant compared to the prior study, and there may be mass effect on the upper cervical spinal cord. The mastoid air cells and visualized portions of the paranasal sinuses are well aerated. The ventricles are normal in size. There are multiple patchy areas of low attenuation in the periventricular and subcortical white matter, slightly increased in extent compared to the prior study. There are areas of low attenuation in the basal ganglia consistent with lacunar infarcts. 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 Plan: MRI C spne
--- NOTE | 2016-06-20 12:42 | PN- Infect Dx ---
Subjective Subjective: Afebrile. She continues to have a mild cough, with no shortness of breath or chest pain. She does not report any further pruritus. She does note pain in the posterior aspect of her neck. Objective Last 24 Hrs of Vital Signs/I&O Vital Signs Date Time Temp Pulse Resp B/P Pulse O2 O2 Flow FiO2 Ox Delivery Rate 06/20 1148 Room Air 06/20 0842 98.1 82 20 144/80 94 Room Air 06/19 2345 98.5 80 18 130/72 94 Room Air 06/19 1604 98.1 77 18 140/88 96 Room Air 06/19 1340 97 Room Air Room Air 06/19 1330 98.6 78 18 142/84 97 Room Air Room Air Intake & Output 06/20 1600 06/20 0800 06/20 0000 Intake Total Output Total 500 300 Balance -500 -300 Number 1 Bowel Movements Output, Urine 500 300 Physical Exam Other Physical Findings: She appears comfortable in no acute distress Skin macular papular rash on her lower extremities and, to a lesser extent, her abdomen and back Lungs crackles at the right base Heart regular rhythm with no murmur Back no CVA tenderness Extremities 1+ edema both lower extremities Neuro no obvious focality Results Last 24 Hours of Lab Results: Laboratory Tests 06/20 06/19 0658 1620 Chemistry Sodium (137 - 145 mmol/L) 134 L Potassium (3.5 - 5.1 mmol/L) 3.7 Chloride (98 - 107 mmol/L) 102 Carbon Dioxide (22 - 30 mmol/L) 29 Anion Gap (5 - 16) 3 L BUN (7 - 17 mg/dL) 13 Creatinine (0.5 - 1.0 mg/dL) 0.5 Estimated GFR (>60 ml/min) > 60 BUN/Creatinine Ratio (7 - 25 %) 26.0 H Total Bilirubin (0.2 - 1.3 mg/dL) 0.6 Direct Bilirubin (< 0.4 mg/dL) 0.2 AST (14 - 36 U/L) 19 ALT (9 - 52 U/L) 101 H Alkaline Phosphatase (<127 U/L) 98 Total Protein (6.3 - 8.2 g/dL) 4.8 L Albumin (3.5 - 5.0 g/dL) 2.3 L Hematology CBC w Diff MAN DIFF ORDERED WBC (4.8 - 10.8 /CUMM) 13.7 H RBC (4.20 - 5.40 /CUMM) 4.01 L Hgb (12.0 - 16.0 G/DL) 11.2 L Hct (37 - 47 %) 33.5 L MCV (81.0 - 99.0 FL) 83.5 MCH (27.0 - 31.0 PG) 27.9 RDW (11.5 - 14.5 %) 15.8 H Plt Count (130 - 400 /CUMM) 210 MPV (7.4 - 10.4 FL) 8.8 Gran % (42.2 - 75.2 %) 51.5 Lymphocytes % (20.5 - 51.1 %) 40.5 Monocytes % (1.7 - 9.3 %) 4.4 Eosinophils % (0 - 5 %) 3.3 Basophils % (0.0 - 2.0 %) 0.3 Absolute Granulocytes (1.4 - 6.5 /CUMM) 7.1 H Segmented Neutrophils (42.2 - 75.2 %) 56 Band Neutrophils (0.0 - 5.0 %) 1 Absolute Lymphocytes (1.2 - 3.4 /CUMM) 5.6 H Lymphocytes (20.5 - 51.1 %) 37 Monocytes (1.7 - 9.3 %) 2 Absolute Monocytes (0.10 - 0.60 /CUMM) 0.6 Eosinophils (0 - 5.0 %) 3 Absolute Eosinophils (0.0 - 0.7 /CUMM) 0.4 Absolute Basophils (0.0 - 0.2 /CUMM) 0 Metamyelocytes (0.0 - 1.0 %) 1 Nucleated RBCs (0.0 - 0.0 /100WBC) 1 H Platelet Estimate (ADEQUATE) ADEQUATE Poikilocytosis 1+ Anisocytosis 1+ PUBS MCHC (33.0 - 37.0 G/DL) 33.4 Urines Urine Color (YEL,AMB,STR) STRAW Urine Clarity (CLEAR) CLEAR Urine pH (5.0 - 8.0) 6.0 Ur Specific [place] (1.001 - 1.035) 1.010 Urine Protein (NEG,<30 MG/DL) NEG Urine Ketones (NEG) NEG Urine Nitrite (NEG) NEG Urine Bilirubin (NEG) NEG Urine Urobilinogen (0.1 - 1.0 EU/dl) 0.2 Ur Leukocyte Esterase (NEG) NEG Ur Microscopic SEDIMENT EXAMINED Urine RBC (0 - 5 /HPF) RARE Ur Epithelial Cells (NONE,FEW) RARE Urine Hemoglobin (NEG) TRACE-INTACT Urine Glucose (N MG/DL) NEG Last 24 Hours of Juan Results: Urine culture June 19 negative Recent Imaging Studies: CT of the head June 19 reveals an increase in the pannus at the level of C1- C2 with possible mass effect on the upper cervical spinal cord Assessment/Plan Impression: Stable with temperatures remaining normal but with white blood cell count continuing to increase, with reactive/atypical lymphs and few smudge cells noted on the differential. This is more suggestive of a viral process, with her cough perhaps reflecting this. 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 Her rash persists though is overall improved and is likely still secondary to the Ceftriaxone. Her head CT findings are noted and she is scheduled for an MRI of the cervical spine. Suggestion: 1. Sputum culture 2. Repeat chest x-ray if cough persists 3. Urology reevaluation if white blood cell count continues to increase 4. Await MRI of the cervical spine 5. Continue to follow off antibiotics
[2016-06-20 16:17] VITALS: BP 128/78
[2016-06-20] MEDS ORDERED: CHOLESTYRAMINE L4 GM PO (17:06)
[2016-06-21 00:13] VITALS: BP 130/60
--- NOTE | 2016-06-21 06:51 | PN- Housestaff ---
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 She reports she feels well except for mild pain in her right arm. She also reports right hand tingling and weakness which has been present prior to admission. Review of Systems Constitutional: Reports: weakness (Legs). Denies: chills, fever. EENTM: Denies: visual changes, hearing changes. Cardiovascular: Denies: chest pain, palpitations. Respiratory: Denies: cough. Gastrointestinal: Denies: abdominal pain. Genitourinary: Denies: dysuria. Musculoskeletal: Reports: muscle pain (Right arm), neck pain (Occasional). Skin: Denies: dryness. Neurological/Psychological: Reports: paresthesia (Right hand). Denies: confusion, headache. Hematologic/Endocrine: Denies: bruising. Immunologic/Allergic: Denies: splenectomy. Objective Last 24 Hrs of Vital Signs/I&O Vital Signs Date Time Temp Pulse Resp B/P Pulse O2 O2 Flow FiO2 Ox Delivery Rate 06/21 1500 98.8 78 20 124/72 06/21 1315 Room Air 06/21 0843 98.8 78 20 124/72 93 06/21 0013 98.8 80 20 130/60 93 Room Air 06/20 1617 98.5 84 17 128/78 94 Room Air Intake & Output 06/21 1600 06/21 0800 06/21 0000 Intake Total 800 Output Total 550 700 351 Balance 250 -700 -351 Intake, Oral 800 Number 1 Bowel Movements Output, Stool 1 Output, Urine 550 700 350 Physical Exam General Appearance: Alert, Oriented X3, Cooperative, No Acute Distress Skin: No Significant Lesion HEENT: Atraumatic, Mucous Membr. moist/pink Neck: Supple, No pain on movement. 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 Normal sensation. Normal strength of bilateral lower extremities. Extremities: No Clubbing Vascular: Pulses Symmetrical Current Medications: Current Medications Sig/Isela Start time Last Medication Dose Route Stop Time Status Admin Artificial Tears 2 GTT 4 TIMES/DAY 06/16 1800 AC 06/21 OPH 1417 Cholestyramine Resin 1 PAC 1100,1700 01/16 1830 AC 06/21 PO 1115 Diclofenac Sodium 1 JACQUI 4 TIMES/DAY 06/16 1800 AC 06/21 TOP 1417 Escitalopram Oxalate 10 MG DAILY 06/14 1000 AC 06/21 PO 1001 Guaifenesin 10 ML Q6P PRN 06/17 1400 AC 06/17 PO 2113 Heparin Sodium 5,000 UNIT Q8 06/18 1400 AC 06/21 (Porcine) SC 1417 Levothyroxine Sodium 0.125 MG DAILY AC 06/19 0700 AC 06/21 PO 0638 Nystatin 1 JACQUI BID PRN 06/18 1845 AC 06/18 TOP 2248 Omeprazole 40 MG DAILY AC 06/15 0826 AC 06/21 PO 0638 Oxycodone HCl 5 MG Q6-PRN PRN 06/21 0945 AC PO Oxycodone HCl 5 MG Q6-PRN PRN 06/13 2315 DC 06/20 PO 0824 Last 24 Hrs of Lab/Juan Results Last 24 Hrs of Labs/Mics: Laboratory Tests 06/21/16 0715: Anion Gap 4 L, Estimated GFR > 60, BUN/Creatinine Ratio 26.0 H, CBC w Diff MAN DIFF ORDERED, RBC 3.89 L, MCV 83.8, MCH 27.7, RDW 15.5 H, MPV 8.7, Gran % 57.8 , Lymphocytes % 33.2, Monocytes % 4.9, Eosinophils % 3.6, Basophils % 0.5, Absolute Granulocytes 7.0 H, Segmented Neutrophils 52, Band Neutrophils 3, Absolute Lymphocytes 4.0 H, Lymphocytes 31, Monocytes 4, Absolute Monocytes 0.6 , Eosinophils 3, Absolute Eosinophils 0.4, Basophils 2, Absolute Basophils 0.1, Metamyelocytes 5 H, Platelet Estimate ADEQUATE, Polychromasia 1+, Poikilocytosis 2+, Anisocytosis 2+, Ovalocytes 2+, Elliptocytes 1+, PUBS MCHC 33.1 Microbiology 06/20 1654 LOWER RESP: Respiratory Culture - CAN Cancelled: POOR QUALITY SPECIMEN- MODERATE EPITHELIAL CELLS OBSERVED, 06/20 1654 LOWER RESP: Gram Stain - CAN Cancelled: POOR QUALITY SPECIMEN- MODERATE EPITHELIAL CELLS OBSERVED, Orders Miscellaneous Findings: EXAMINATION: MR CERVICAL SPINE WITHOUT CONTRAST CLINICAL INFORMATION: Recurrent falls and weakness. Evaluate the C1-C2 level. Suspected pannus. Question mass on the cervical cord. COMPARISON: CT scan of the head 06/19/2016. TECHNIQUE: MRI of the cervical spine without contrast was obtained using routine sequences. FINDINGS: Similar to the findings demonstrated on the recently obtained CT scan of the head from 06/19/2016 there is an exuberant articular pannus of the atlantodental joint causing elevation of the tectorial membrane and significant encroachment of the ventral canal at the level of the craniocervical junction. There is AP compression of the cervical cord with a short segment of increased T2 signal intensity involving the right lateral cord consistent with myelomalacia. There is reversal of cervical lordosis. Vertebral alignment is otherwise maintained in the sagittal collection. Vertebral body heights are grossly preserved. There are prominent anterior disc osteophyte complexes at multiple consecutive levels within the cervical spine. There is loss of intervertebral disc height and T2 signal intensity at multiple levels consistent with degenerative disc disease. No acute bone marrow signal changes. There is slight posterior subluxation of the occipital condyles with respect to the lateral C1 masses. At C2-C3 there is a slightly bulging disc. No canal stenosis. Advanced bilateral facet degenerative change. No substantial neuroforaminal encroachment. At C3-C4 there is a broad shallow left central protrusion that causes indentation of the ventral thecal sac and distortion of the ventral cord contour. Severe canal stenosis. Uncovertebral joint hypertrophy and facet degenerative change causes severe right and moderate left neuroforaminal encroachment. At C4-C5 there is a broad shallow central protrusion that causes indentation of the ventral thecal sac. Mild canal stenosis. Uncovertebral joint hypertrophy and facet degenerative change causes moderate left and mild right neuroforaminal encroachment. At C5-C6 there is a broad shallow central protrusion that causes indentation of the ventral thecal sac. Mild canal stenosis. Uncovertebral joint hypertrophy and facet degenerative change causes moderate left and mild right neuroforaminal encroachment. At C6-C7 there is a diffusely bulging disc. No canal stenosis. Uncovertebral joint hypertrophy and facet degenerative change causes moderate left and mild right neuroforaminal encroachment. At C7-T1 there is a diffusely bulging disc. No canal stenosis. There is bilateral uncovertebral joint hypertrophy and facet degenerative change causing mild symmetric neuroforaminal encroachment. Limited visualization of the soft tissues of the neck reveals no additional finding. 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 There is severe stenosis with cord compression and a short segment of myelomalacia involving the right lateral cord best illustrated on sagittal T2 image 8 of 12 series 3. There is also severe canal stenosis at C3-C4 and mild canal stenosis at C5-C6 related to multifactorial degenerative changes at each of these 2 levels. There are varying degrees of neuroforaminal encroachment related to uncovertebral joint hypertrophy and facet degenerative change as described above. Assessment/Plan Assessment: 76-year-old female with PMH of osteoporosis, HLD, hypothyroidism, depression, presented for referral by her PCP, Dr. Khalil, for evaluation of recurrent fall and possible STR placement. In the ED, she was noted to be hypotensive at 84/51, for which her BP responded well to 2 L of NS. Her labs were found to be abnormal in the ED including AST 1649, ALT 1777, Alk phos 266, GGT 147, amylase 124, lipase 664. Although she denies any symptoms, and she had cholecystectomy in [address] was negative for stones, the hypotension is worrisome for impending acute cholangitis. She is admitted to and the following problems addressed: # Recurrent falls * Patient gavino has had 4 falls prior to admission for which she was admitted to telemetry and arrhythmia was ruled out as a cause of syncope * Echo showed normal EF without any gross abnormalities. * Neuro consult placed and suggested head CT which was done and showed no NPH/ acute infarct * CT did show an increase in the pannus at the level of [id number] and there may be mass effect on the cervical spinal cord. * MRI neck showed concerning findings including high grade stenosis at cervicomedullary junction with severe ventral compression of the lower brainstem and upper cord with signal abnormality. * [facility], patient aware and has consented. We have placed her in a neck collar for transport. # Transaminitis, elevated lipase and amylase, hypotension. * Likely represents ischemic hepatitis from hypotension * Transaminitis improving with AST/ALT trending towards normal * GI consult placed an appreciated * Avoid hepatotoxins and NSAIDS #Drug fever * A formal infectious diseases consult propose that the patient may have developed a rash and fevers due to possible drug reaction. * Antibiotics discontinued on 06/15/15 and symptoms of a drug rash may be present for up to 10-14 days. * The patient has however continued to spike an elevated white count. We will continue to trend with CBC and follow up pancultures. * Rash improving and shows decreased erythema/spread from yesterday. * Repeat CXR if cough returns. 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 * Renal US - [id number] hydronephrosis of the left kidney and small, 3 mm calculus is seen in the expected location of the left ureterovesical junction. However, the left ureter is not dilated on the CT exam, which shows ureteropelvic junction obstruction. # Hypothyroidism * Continue levothyroxine 150 mcg # Diarrhea due to s/p Gall bladder removal. * Continue cholestyramine 4 gm bid. A higher dose ends up giving her constipation. # Depression * Continue escitalopram 10 mg # Osteoporosis * Continue alendronate 70 Q Mon. However was discontinued owing to this medication is not recommended as an inpatient medication. She can continue this medication as an outpatient. # Skin * Continue nystatin * Continue to monitor for improvement in rash FULL CODE DVTP: Heparin SC Heart Healthy Mild-mod pain pathway Problem List: 1. Rash 2. Obstruction of left ureteropelvic junction (UPJ) 3. Ischemic hepatitis 4. Recurrent falls 5. Generalized weakness 6. Leukocytosis Pain Ratin Pain Location: Right arm/elbow s/p fall. Pain Goal: Pain 4 or less Pain Plan: Roxicodone 5 mg PO Q6P pain 4-10. Tomorrow's Labs & Rationales: None.
[2016-06-21 08:18] LABS: ABSOLUTE BASOPHIL COUNT 0.1 /CUMM (0.0-0.2); ABSOLUTE EOSINOPHIL COUNT 0.4 /CUMM (0.0-0.7); ABSOLUTE MONOCYTE COUNT 0.6 /CUMM (0.10-0.60); BASOPHIL % 0.5 % (0.0-2.0); EOSINOPHIL % 3.6 % (0-5); GRANULOCYTE % 57.8 % (42.2-75.2); HEMATOCRIT 32.6 % (37-47); MEAN CORPUSCULAR HGB 27.7 PG (27.0-31.0); MEAN CORPUSCULAR HGB CONC 33.1 G/DL (33.0-37.0); MEAN CORPUSCULAR VOLUME 83.8 FL (81.0-99.0); MEAN PLATELET VOLUME 8.7 FL (7.4-10.4); PLATELET COUNT 231 /CUMM (130-400); RBC DISTRIBUTION WIDTH 15.5 % (11.5-14.5); RED BLOOD CELL CT 3.89 /CUMM (4.20-5.40); WHITE BLOOD CELL COUNT 12.2 /CUMM (4.8-10.8)
[2016-06-21 08:43] VITALS: BP 124/72
--- NOTE | 2016-06-21 11:33 | MRI REPORT ---
EXAMINATION: MR CERVICAL SPINE WITHOUT CONTRAST CLINICAL INFORMATION: Recurrent falls and weakness. Evaluate the C1-C2 level. Suspected pannus. Question mass on the cervical cord. COMPARISON: CT scan of the head 06/19/2016. TECHNIQUE: MRI of the cervical spine without contrast was obtained using routine sequences. FINDINGS: Similar to the findings demonstrated on the recently obtained CT scan of the head from 06/19/2016 there is an exuberant articular pannus of the atlantodental joint causing elevation of the tectorial membrane and significant encroachment of the ventral canal at the level of the craniocervical junction. There is AP compression of the cervical cord with a short segment of increased T2 signal intensity involving the right lateral cord consistent with myelomalacia. There is reversal of cervical lordosis. Vertebral alignment is otherwise maintained in the sagittal collection. Vertebral body heights are grossly preserved. There are prominent anterior disc osteophyte complexes at multiple consecutive levels within the cervical spine. There is loss of intervertebral disc height and T2 signal intensity at multiple levels consistent with degenerative disc disease. No acute bone marrow signal changes. There is slight posterior subluxation of the occipital condyles with respect to the lateral C1 masses. At C2-C3 there is a slightly bulging disc. No canal stenosis. Advanced bilateral facet degenerative change. No substantial neuroforaminal encroachment. At C3-C4 there is a broad shallow left central protrusion that causes indentation of the ventral thecal sac and distortion of the ventral cord contour. Severe canal stenosis. Uncovertebral joint hypertrophy and facet degenerative change causes severe right and moderate left neuroforaminal encroachment. At C4-C5 there is a broad shallow central protrusion that causes indentation of the ventral thecal sac. Mild canal stenosis. Uncovertebral joint hypertrophy and facet degenerative change causes moderate left and mild right neuroforaminal encroachment. At C5-C6 there is a broad shallow central protrusion that causes indentation of the ventral thecal sac. Mild canal stenosis. Uncovertebral joint hypertrophy and facet degenerative change causes moderate left and mild right neuroforaminal encroachment. At C6-C7 there is a diffusely bulging disc. No canal stenosis. Uncovertebral joint hypertrophy and facet degenerative change causes moderate left and mild right neuroforaminal encroachment. At C7-T1 there is a diffusely bulging disc. No canal stenosis. There is bilateral uncovertebral joint hypertrophy and facet degenerative change causing mild symmetric neuroforaminal encroachment. Limited visualization of the soft tissues of the neck reveals no additional finding. 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 There is severe stenosis with cord compression and a short segment of myelomalacia involving the right lateral cord best illustrated on sagittal T2 image 8 of 12 series 3. There is also severe canal stenosis at C3-C4 and mild canal stenosis at C5-C6 related to multifactorial degenerative changes at each of these 2 levels. There are varying degrees of neuroforaminal encroachment related to uncovertebral joint hypertrophy and facet degenerative change as described above.
--- NOTE | 2016-06-21 12:14 | Event Note ---
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 There is also severe canal stenosis at C3-C4 and mild canal stenosis at C5-C6 related to multifactorial degenerative changes at each of these 2 levels. This was relayed to ada accommodation consultant neurologist Dr. Metz who suggested this is a neurosurgical intervention. He reported that he will defer steroids to surgery. An immediate consult with Dr. Karrie Christian was placed for today in regards to above findings. Of note, neurological exam is insufficient as patient is s/p fall and right arm is in a sling limiting the exam due to pain. 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 Patient denies saddle anesthesia, loss of bowel/bladder control or other concerning signs/symptoms. We will await neurosurgical input at this time.
--- NOTE | 2016-06-21 13:31 | NUR ---
PHYSICAL THERAPY- CERVICAL MRI + FOR CORD COMPRESSION C1-C2. NEUROSURGERY CONSULTATION ORDERED. WILL DEFER TX AT THIS TIME 2* ABOVE AND AWAIT RESULTS OF CONSULT/MD INPUT. WILL FOLLOW.
--- NOTE | 2016-06-21 13:50 | Cons- Neurosurgical ---
General Information and HPI Consulting Request Date of Consult: 06/21/16 Requested By: NAREN VÁZQUEZ M.D Reason for Consult: cervical stenosis History of Present Illness: This is a 76-year-old woman with a history of osteoporosis, frequent falls status post a comminuted intra-articular fracture of the distal right humerus 5 weeks prior to admission, treated conservatively with a splint, seen at [facility] ED om 06/12/16 after a fall with a right gluteal hematoma now admitted on June 13 after another fall at home. Pt hypotensive on admission with elevated transaminases, wbc, and hydronephrosis. Her workup has included MRI of cervical spine which has identified multilevel stenosis for which neurosurgical consultation requested. Allergies/Medications Allergies: Coded Allergies: amoxicillin (Mild, RASH 06/13/16) clarithromycin (From BIAXIN) (Mild, RASH 06/13/16) urokinase (Mild, RASH 06/13/16) Home Med List: Alendronate Sodium 70 MG TABLET 1 TAB PO QMON OP (Reported) in the morning, at least 30 minutes before the first food, beverage, or medication of the day Calcium Carbonate/Vitamin D3 (Caltrate 600 + D Tablet) 600 MG-800 TABLET 1 TAB PO DAILY SUPPLEMENT (Reported) Calcium Polycarbophil (Fibercon) 625 MG TABLET 625 MG PO D FIBER SUPPLEMENT ( Reported) Cholestyramine (With Sugar) (Cholestyramine Packet) 4 GRAM POWD.PACK 1 Scoopful PO BID LIVER-BILE DUCT (Reported) Clobetasol Propionate 0.05 % CREAM..G. 1 JACQUI TOP D ECZEMA (Reported) apply to affected area(s) Econazole (Econazole Nitrate) 1 % CREAM..G. 1 JACQUI TOP BID ECZEMA (Reported) apply to affected area(s) Escitalopram Oxalate 10 MG TABLET 1 TAB PO DAILY DEPRESSION (Reported) Levothyroxine Sodium 150 MCG TABLET 1 TAB PO DAILY THYROID (Reported) Multivitamin/Iron/Folic Acid (Centrum Complete Multivit Tab) 18 MG IRON-400 MCG TABLET 1 TAB PO D SUPPLEMEMT (Reported) Omeprazole 40 MG CAPSULE.DR 1 CAP PO DAILY GERD (Reported) Oxycodone HCl 5 MG TABLET 1 TAB PO 4XDAILY PRN PAIN (Reported) Simvastatin (Simvastatin*) 20 MG TABLET 1 TAB PO QPM HLD (Reported) Current Medications: Current Medications Sig/Isela Start time Last Medication Dose Route Stop Time Status Admin Artificial Tears 2 GTT 4 TIMES/DAY 06/16 1800 AC 06/21 OPH 1002 Cholestyramine Resin 1 PAC 1100,1700 06/19 1830 AC 06/21 PO 1115 Diclofenac Sodium 1 JACQUI 4 TIMES/DAY 06/16 1800 AC 06/21 TOP 1002 Escitalopram Oxalate 10 MG DAILY 06/14 1000 AC 06/21 PO 1001 Guaifenesin 10 ML Q6P PRN 06/17 1400 AC 06/17 PO 2113 Heparin Sodium 5,000 UNIT Q8 06/18 1400 AC 06/21 (Porcine) SC 0638 Levothyroxine Sodium 0.125 MG DAILY AC 06/19 0700 AC 06/21 PO 0638 Nystatin 1 JACQUI BID PRN 06/18 1845 AC 06/18 TOP 2248 Omeprazole 40 MG DAILY AC 06/15 0826 AC 06/21 PO 0638 Oxycodone HCl 5 MG Q6-PRN PRN 06/21 0945 AC PO Oxycodone HCl 5 MG Q6-PRN PRN 06/13 2315 DC 06/20 PO 0824 Past History Medical History Blood Transfusion Hx: No Neurological: NONE EENT: NONE Cardiovascular: hyperlipidemia Respiratory: asthma, pneumonia Gastrointestinal: GERD Hepatic: elevated transaminases Renal: hydronephrosis Musculoskeletal: osteoporosis, spinal fusion Psychiatric: depression Endocrine: hypothyroidism Blood Disorders: NONE Cancer(s): NONE PRODUCTION QUALITY ANALYST/Reproductive: NONE Surgical History Pertinent Surgical History: cholecystectomy, hernia repair-incisional, knee replacement (B/L), laminectomy, spinal fusion (lumbar), Lung surgery 01/24/07: HH repair with mesh & Socorro fundoplication ORIF L hip status post thoracotomy with decortication status post left hip ORIF Family History Relations & Conditions If Any: MOTHER (onset then). , Age 83; Cause: Colon cancer. FATHER (DM). , Age 79; Cause: Myocardial infarct. Psychosocial History Where Do You Live? Home Who Do You Live With? spouse (Geroge) Services at Home: Nursing, Physical Therapy Primary Language: Maltese Smoking Status: Never Smoked ETOH Use: denies use Illicit Drug Use: denies illicit drug use Living Will? no Power of Biomedical Engineering Technician/HCP? no Other Social History: . Lives with , Boni, & daughter, Alejandra. No cigarettes, EtOH, or drugs. Was independent until fx RUE post fall in 04/2016. Functional Ability ADLs Independent: dressing (until recent RUE fx), eating, toileting, bathing. Ambulation: independent (until recent fall COIL WINDER) IADLs Independent: shopping (until recent fall COIL WINDER), housework, finances, food prep, telephone, transportation, medication admin. 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 yes Review of Systems Review of Systems: falls, hydronephrosis, osteoporosis Exam & Diagnostic Data Vital Signs and I&O Vital Signs Date Time Temp Pulse Resp B/P Pulse O2 O2 Flow FiO2 Ox Delivery Rate 06/21 1315 Room Air 06/21 0843 98.8 78 20 124/72 93 06/21 0013 98.8 80 20 130/60 93 Room Air 06/20 1617 98.5 84 17 128/78 94 Room Air Intake & Output 06/21 1600 06/21 0800 06/21 0000 06/20 1600 06/20 0800 06/20 0000 Intake Total 900 Output Total 700 351 300 500 300 Balance -700 -351 600 -500 -300 Intake, Oral 900 Number 1 Bowel Movements Output, Stool 1 Output, Urine 700 350 300 500 300 Last 24 Hours of Labs: Laboratory Tests 06/21 0715 Chemistry Sodium (137 - 145 mmol/L) 134 L Potassium (3.5 - 5.1 mmol/L) 4.0 Chloride (98 - 107 mmol/L) 100 Carbon Dioxide (22 - 30 mmol/L) 30 Anion Gap (5 - 16) 4 L BUN (7 - 17 mg/dL) 13 Creatinine (0.5 - 1.0 mg/dL) 0.5 Estimated GFR (>60 ml/min) > 60 BUN/Creatinine Ratio (7 - 25 %) 26.0 H Hematology CBC w Diff MAN DIFF ORDERED WBC (4.8 - 10.8 /CUMM) 12.2 H RBC (4.20 - 5.40 /CUMM) 3.89 L Hgb (12.0 - 16.0 G/DL) 10.8 L Hct (37 - 47 %) 32.6 L MCV (81.0 - 99.0 FL) 83.8 MCH (27.0 - 31.0 PG) 27.7 RDW (11.5 - 14.5 %) 15.5 H Plt Count (130 - 400 /CUMM) 231 MPV (7.4 - 10.4 FL) 8.7 Gran % (42.2 - 75.2 %) 57.8 Lymphocytes % (20.5 - 51.1 %) 33.2 Monocytes % (1.7 - 9.3 %) 4.9 Eosinophils % (0 - 5 %) 3.6 Basophils % (0.0 - 2.0 %) 0.5 Absolute Granulocytes (1.4 - 6.5 /CUMM) 7.0 H Segmented Neutrophils (42.2 - 75.2 %) 52 Band Neutrophils (0.0 - 5.0 %) 3 Absolute Lymphocytes (1.2 - 3.4 /CUMM) 4.0 H Lymphocytes (20.5 - 51.1 %) 31 Monocytes (1.7 - 9.3 %) 4 Absolute Monocytes (0.10 - 0.60 /CUMM) 0.6 Eosinophils (0 - 5.0 %) 3 Absolute Eosinophils (0.0 - 0.7 /CUMM) 0.4 Basophils (0.0 - 2.0 %) 2 Absolute Basophils (0.0 - 0.2 /CUMM) 0.1 Metamyelocytes (0.0 - 1.0 %) 5 H Platelet Estimate (ADEQUATE) ADEQUATE Polychromasia 1+ Poikilocytosis 2+ Anisocytosis 2+ Ovalocytes 2+ Elliptocytes 1+ PUBS MCHC (33.0 - 37.0 G/DL) 33.1 Imaging Results: MRI C spine: There is advanced arthrosis of the atlantodental joint with a large articular pannus causing elevation of the tectorial membrane and severe narrowing of the canal at the level of the craniocervical junction. There is severe stenosis with lower medullary and C1-2 cord compression with myelomalacia involving the right lateral cord. There is also severe canal stenosis at C3-C4 and mild canal stenosis at C5-C6 related to multifactorial degenerative changes and multilevel neuroforaminal stenosis secondary to disc/osteophytes and uncovertebral spondylosis. 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 In the setting of progressive falls, pt is at high risk for catastrophic neurological event which can include . She will require surgical intervention to treat this. Based of the imaging, I am unsure that a post occipitocervical decompression/fusion will be sufficient to resolve the compression, which is worse anteriorly than posteriorly, and pt may require consideration for transoral odontoidectomy with supplemental posterior decompression and fusion. Either way, the anticipated complexities of treatment mandate a tertiary care center with appropriate facilities to manage her surgical and postsurgical care and can not be managed safely at . Pt should be placed in rigid cervical collar until appropriate transfer to another facility acceptable to her, her medical team and family. I have communicated my impressions and recommendations personally to the pt's hospitalist, Dr. Vázquez, today. Consult Acknowledgment - Thank you for your consult request.
[2016-06-21 15:00] VITALS: BP 124/72
[2016-06-21] MEDS ORDERED: SYNTHROID125 MCG PO (15:10)
[2016-06-21 15:45] VITALS: BP 132/72
--- NOTE | 2016-06-21 19:42 | NUR ---
NURSING NOTE: REPORT GIVEN TO [place] AT [facility] 63 RM [id number].
== END 2016-06-21 20:50 | disposition short-term general hospital (02) | DRG 551 ==
LOC: CANRESERV → ENRESERVTM → ENRESERVDT → ERH 16:23 → 1NO 21:46 → ENPENDDIS 21:46 → 2NB 21:46 → ERHI 21:46 → 1NO 23:02 → ERHI 06-14 07:59 → CANBEDREQ 06-14 11:42 → 1NO 06-14 15:20 → 2NB 06-19 13:30
PROVIDERS: Internal Medicine; Internal Medicine Hematology & Oncology; Physician Assistant Surgical; Student in an Organized Health Care Education/Training Program; ADMIT Student in an Organized Health Care Education/Training Program
DX: M48.02 Spinal stenosis, cervical region (principal); G93.5 Compression of brain; K72.00 Acute and subacute hepatic failure without coma; G04.91 Myelitis, unspecified; J84.9 Interstitial pulmonary disease, unspecified; E46 Unspecified protein-calorie malnutrition; I95.9 Hypotension, unspecified; D68.9 Coagulation defect, unspecified; N13.0 Hydronephrosis with ureteropelvic junction obstruction; G95.29 Other cord compression; E86.0 Dehydration; E03.9 Hypothyroidism, unspecified; I87.2 Venous insufficiency (chronic) (peripheral); E78.5 Hyperlipidemia, unspecified; K21.9 Gastro-esophageal reflux disease without esophagitis; E87.6 Hypokalemia; T36.1X5A Adverse effect of cephalosporins and other beta-lactam antibiotics, initial encounter; Z91.81 History of falling; S52.501D Unspecified fracture of the lower end of right radius, subsequent encounter for closed fracture with routine healing; W19.XXXD Unspecified fall, subsequent encounter; L27.0 Generalized skin eruption due to drugs and medicaments taken internally; J45.909 Unspecified asthma, uncomplicated; F32.9 Major depressive disorder, single episode, unspecified
CPT/HCPCS: 1NP; 2NBP; 72141; 74181; ERO; 36415; 74177; 76775; 81001; 82436; 87040; 87070; 87086; 87804; 87804-59; 93005; 93010; 93306; 96361; 96374; 96375; 97110-GO; 97116-GO; 97162-GP; 97165-GO; 97530-GO; G0480; J0696; J1644; J1885

== ENCOUNTER 2016-08-29 12:28 | Emergency (ER) | payer OTHER ==
[~2016-08-29 12:28] MED LIST changes: +CHOLESTYRAMINE L4 GM PO; +OXYCODONE HCL5 M1 PO; +SIMVASTATIN20 M2 PO; +SYNTHROID125 MCG PO
--- NOTE | 2016-08-29 12:37 | ED MVC/FALL/TRAUMA COMPLAINT ---
See Addendum History of Present Illness General Chief Complaint: Fall Stated Complaint: BIBA FALL HEAD LAC Source: patient, old records, EMS Exam Limitations: no limitations Vital Signs & Intake/Output Vital Signs & Intake/Output Vital Signs Date Time Temp Pulse Resp B/P Pulse O2 O2 Flow FiO2 Ox Delivery Rate 08/29 1415 65 18 132/72 98 Room Air 08/29 1252 96.6 73 18 111/64 97 Room Air 08/29 1240 Room Air Allergies Coded Allergies: amoxicillin (Mild, RASH 08/29/16) clarithromycin (From BIAXIN) (Mild, RASH 08/29/16) urokinase (Mild, RASH 08/29/16) Reconcile Medications Alendronate Sodium 70 MG TABLET 1 TAB PO QMON OP (Reported) in the morning, at least 30 minutes before the first food, beverage, or medication of the day Calcium Carbonate/Vitamin D3 (Caltrate 600 + D Tablet) 600 MG-800 TABLET 1 TAB PO DAILY SUPPLEMENT (Reported) Calcium Polycarbophil (Fibercon) 625 MG TABLET 625 MG PO D FIBER SUPPLEMENT ( Reported) Cholestyramine (With Sugar) (Cholestyramine Packet) 4 GRAM POWD.PACK 1 Scoopful PO BID LIVER-BILE DUCT (Reported) Clobetasol Propionate 0.05 % CREAM..G. 1 JACQUI TOP D ECZEMA (Reported) apply to affected area(s) Econazole (Econazole Nitrate) 1 % CREAM..G. 1 JACQUI TOP BID ECZEMA (Reported) apply to affected area(s) Escitalopram Oxalate 10 MG TABLET 1 TAB PO DAILY DEPRESSION (Reported) Levothyroxine Sodium (Synthroid) 125 MCG TABLET 0.125 MG PO DAILY AC thyorid Multivitamin/Iron/Folic Acid (Centrum Complete Multivit Tab) 18 MG IRON-400 MCG TABLET 1 TAB PO D SUPPLEMEMT (Reported) Omeprazole 40 MG CAPSULE.DR 1 CAP PO DAILY GERD (Reported) Oxycodone HCl 5 MG TABLET 1 TAB PO 4XDAILY PRN PAIN (Reported) Simvastatin (Simvastatin*) 20 MG TABLET 1 TAB PO QPM HLD (Reported) Triage Nurses Notes Reviewed? yes Onset: Abrupt Duration: hour(s): (1), constant Timing: single episode today Severity: mild Severity Numbers: 4 Injuries/Fall Location: head (aching pain at laceration) Method of Injury: laceration Loss of Consciousness: no loss of consciousness No Modifying Factors: none Associated Symptoms: denies HPI: 76 Year old female with history of osteoporosis, HLD, hypothyroidism, depression frequent falls presents biba s/p fall sustaining laceration to head. The patient states that she was bending over to pickers material handlers her dog's feces when she lost her balance falling over striking the back of her head against a buffet table. There was no loss of consciousness. The patient states she was able to get up on her own after the accident occurred however she sustained laceration for which she called 911. She denies any prodromal dizziness light and is palpitations chest pain. On arrival the patient is otherwise without any complaints she denies headache nausea vomiting photophobia vision changes neck or back pain or extremity injury. There's been no change in her mental status per family (RED ESPINO) Past History Medical History Any Pertinent Medical History? see below for history Neurological: NONE EENT: NONE Cardiovascular: hyperlipidemia Respiratory: asthma, pneumonia Gastrointestinal: GERD Hepatic: elevated transaminases Renal: hydronephrosis Musculoskeletal: osteoporosis, spinal fusion Psychiatric: depression Endocrine: hypothyroidism Blood Disorders: NONE Cancer(s): NONE RECYCLING TECH/Reproductive: NONE History of MRSA: No History of VRE: Yes History of CDIFF: No Surgical History Surgical History: cholecystectomy, hernia repair-incisional, knee replacement (B /L), laminectomy, spinal fusion (lumbar), Lung surgery 01/24/07: HH repair with mesh & [place] fundoplication ORIF L hip status post thoracotomy with decortication status post left hip ORIF Psychosocial History Services at Home Nursing, Physical Therapy What is your primary language Burmese Family History Family History, If Any: MOTHER (onset then). , Age 83; Cause: Colon cancer. FATHER (DM). , Age 79; Cause: Myocardial infarct. Hx Contributory? No (RED ESPINO) Review of Systems Review of Systems Constitutional: Reports: see HPI. All Other Systems: Reviewed and Negative Comments Review of systems: See HPI, All other systems negative. Constitutional, no chills no fever, no malaise no weight loss HEENT: No visual changes no sore throat no congestion, no ear pain Cardiovascular: No chest pain , no palpitation , no orthopnea no ankle swelling Skin, no rashes, no change in skin Respiratory: No dyspnea no cough no sputum n GI: No nausea no vomiting, no diarrhea, : No dysuria No hematuria, no frequency, no discharge Muscle skeletal: No joint pain, no joint swelling, no back pain, no neck pain, Neurologic: No numbness no confusion, no headache Psych: No stress Heme/endocrine: No bruising no bleeding Immunology: No lymphadenopathy (RED ESPINO) Physical Exam Physical Exam General Appearance: well developed/nourished, no apparent distress, alert, awake Comments: Well-developed well-nourished person in no acute distress Head/Face: 7 cm superficial laceration noted over the parietal scalp, no active bleeding at this time the rest of the scalp and face are atraumatic nontender no maxillary/frontal sinus tenderness, no facial swelling no torres signs Eyes: PERRL, EOMI, no conjunctival injection. No nystagmus no raccoon eyes Ear:External auditory canal and Tympanic membranes clear, no erythema, no FB. No hemotympanum Nose: atraumatic.Normal inspection: No bleeding, no septal hematoma Throat: Moist mucous membranes.Pharynx normal. No pharyngeal erythema/exudate seen. No stridor/drooling or assymetry. No swelling or edema. Neck: Supple, no midline or paracervical tenderness FROM Back: Nontender, no CVA tenderness. Full range of motion Cardiovascular: Regular rate and rhythms no murmurs rubs or gallops, normal JVP Respiratory: Chest nontender.There were no bony deformities, no asymmetry. No respiratory distress. Patient speaking in full complete sentences. Breath sounds clear to auscultation bilaterally: NO W/R/R Abdomen: Soft, nontender nondistended, no appreciable organomegaly. Normal bowel sounds. No rebound/guarding Extremity: No edema, full range of motion of extremities, normal and equal pulses bilaterally, 5 out of 5 strength noted to bilateral upper and lower extremities Neuro: Alert oriented x3, motor sensory normal, cranial nerves II through XII grossly intact. There were no obvious focal neurologic abnormalities. Skin: No appreciable rash on exposed skin, skin is warm and dry. Psych: Mood and affect is normal, memory and judgment is normal. Core Measures ACS in differential dx? No Severe Sepsis Present: No Septic Shock Present: No (RED ESPINO) Progress Differential Diagnosis: C/T/L spine injury, ext injury, ICH, pelvis injury, spinal cord injury Plan of Care: Patient medicated with Tylenol 650 by mouth I discussed with the patient and her family at length all of their results. I had an extensive conversation regarding need for close follow up with their primary care physician this week as well as return precautions. I answered all of their questions, they feel comfortable with the plan and follow-up care. I discussed the medications that they will receive with the patient. I gave them signs and symptoms that could indicate an adverse reaction. I have advised them to limit their activities until they can see how they respond to the medication. Diagnostic Imaging: Viewed by Me: CT Scan. Discussed w/RAD: CT Scan. Radiology Impression: PATIENT: BOO JOINER PRESENT AGE: 76 PATIENT ACCOUNT NO: [id number] : 41 LOCATION: [facility] ORDERING PHYSICIAN: RED NUNEZ SERVICE DATE: 08/29/16 EXAM TYPE: CAT - CT CERV SPINE WO IV CONTRAST; CT HEAD WO IV CONTRAST EXAMINATION: NONCONTRAST HEAD CT NONCONTRAST CERVICAL SPINE CT INDICATION INFORMATION: Fall, hit head. Laceration. COMPARISON: 11/18/2010 CT. MRI of the cervical spine 06/21. TECHNIQUE: Separate noncontrast CT examinations of the head and cervical spine were performed. Coronal and sagittal images were created for each examination at the technologist workstation. FINDINGS: Head: There is no evidence of acute intracranial hemorrhage or territorial infarction. No abnormal mass effect or midline shift is seen. Damon to white matter differentiation is well preserved. No extra-axial fluid collections are identified. No hydrocephalus. Proportional prominence of the ventricles and sulcal spaces is consistent with mild volume loss. Patchy periventricular and deep white matter hypoattenuation is consistent with moderate small vessel ischemic changes. Soft tissue injury with overlying skin yohana in the high parietal region. Postsurgical changes overlie the occipital region. Fusion hardware is partially visualized. No acute calvarial fracture. The mastoid air cells and visualized portions of the paranasal sinuses are well aerated. Cervical spine: There is straightening of the normal cervical lordosis. Posterior fusion hardware extends from the occipital bone through the posterior elements of C6. Diffuse posterior decompression. The dens and anterior arch of C1 are absent, presumably postsurgically. Multilevel disc space narrowing with endplate osteophyte formation and sclerosis. No definite evidence of acute fracture or malalignment. The right C1-C2 articulation is somewhat offset on the sagittal view, although this could be positional. No prevertebral soft tissue swelling. Visualized portions of the lung apices are unremarkable. The thyroid gland is not well seen and is either atrophic or absent.. IMPRESSION: 1. No acute intracranial findings. Soft tissue injury overlying the high parietal area with no underlying fracture. 2. Postsurgical changes at the cervical spine with no definite evidence of acute fracture or malalignment. DICTATED BY: KEELY PERERA MD DATE/TIME DICTATED:08/29/161343 SOCIAL MEDIA CONTENT SPECIALIST:FRANCES DATE/TIME TRANSCRIBED:08/29/161343 CONFIDENTIAL, DO NOT COPY WITHOUT APPROPRIATE AUTHORIZATION. <Electronically signed in Other Vendor System> SIGNED BY: KEELY PERERA MD 08/29/16 1400 (RED ESPINO) Departure Departure Time of Disposition: 1402 Disposition: HOME OR SELF CARE Condition: Stable Clinical Impression Primary Impression: Scalp laceration Secondary Impressions: Fall, Minor head injury Referrals: HECTOR REAGAN,PARTH Gross (PCP/Family) Additional Instructions: Follow-up as discussed in 5-7 days for staple removal. Return anytime sooner with any concerns. Departure Forms: Customer Survey General Discharge Information (RED ESPINO) PA/MANAGER IT TRAINING Co-Sign Statement Statement: ED Attending supervision documentation- [] xI saw and evaluated the patient. I have also reviewed all the pertinent lab results and diagnostic results. I agree with the findings and the plan of care as documented in the PA's/MANAGER IT TRAINING's documentation. [x] I have reviewed the ED Record and agree with the PA's/MANAGER IT TRAINING's documentation. [] Additions or exceptions (if any) to the PAs/MANAGER IT TRAINING's note and plan are summarized below: [] (JAMIE MASON DO) Procedures Laceration/Wound Repair Laceration/Wound Repair: Wound Location: head Wound's Depth, Shape: linear, superficial Wound Length (cm): 7 Wound Explored: clean, no foreign body removed, irrigated extensively Irrigated w/ Saline (ccs): 300 Betadine Prep? Yes Anesthesia: 1% lidocaine Volume Anesthetic (ccs): 7 Wound Repaired With: yohana Suture Size/Type: yohana (x 10) Number of Sutures: 10 Layer Closure? No Sterile Dressing Applied: Yes (RED ESPINO)
--- NOTE | 2016-08-29 14:00 | CT SCAN REPORT ---
EXAMINATION: NONCONTRAST HEAD CT NONCONTRAST CERVICAL SPINE CT INDICATION INFORMATION: Fall, hit head. Laceration. COMPARISON: 11/18/2010 CT. MRI of the cervical spine 06/21/2016. TECHNIQUE: Separate noncontrast CT examinations of the head and cervical spine were performed. Coronal and sagittal images were created for each examination at the technologist workstation. FINDINGS: Head: There is no evidence of acute intracranial hemorrhage or territorial infarction. No abnormal mass effect or midline shift is seen. Damon to white matter differentiation is well preserved. No extra-axial fluid collections are identified. No hydrocephalus. Proportional prominence of the ventricles and sulcal spaces is consistent with mild volume loss. Patchy periventricular and deep white matter hypoattenuation is consistent with moderate small vessel ischemic changes. Soft tissue injury with overlying skin yohana in the high parietal region. Postsurgical changes overlie the occipital region. Fusion hardware is partially visualized. No acute calvarial fracture. The mastoid air cells and visualized portions of the paranasal sinuses are well aerated. Cervical spine: There is straightening of the normal cervical lordosis. Posterior fusion hardware extends from the occipital bone through the posterior elements of C6. Diffuse posterior decompression. The dens and anterior arch of C1 are absent, presumably postsurgically. Multilevel disc space narrowing with endplate osteophyte formation and sclerosis. No definite evidence of acute fracture or malalignment. The right C1-C2 articulation is somewhat offset on the sagittal view, although this could be positional. No prevertebral soft tissue swelling. Visualized portions of the lung apices are unremarkable. The thyroid gland is not well seen and is either atrophic or absent.. IMPRESSION: 1. No acute intracranial findings. Soft tissue injury overlying the high parietal area with no underlying fracture. 2. Postsurgical changes at the cervical spine with no definite evidence of acute fracture or malalignment.
[2016-08-29 14:15] VITALS: BP 132/72
== END 2016-08-29 14:21 ==
LOC: ERH 12:28
DX: S01.01XA Laceration without foreign body of scalp, initial encounter (principal); S09.90XA Unspecified injury of head, initial encounter; W19.XXXA Unspecified fall, initial encounter; Y93.89 Activity, other specified; Y92.9 Unspecified place or not applicable

== ENCOUNTER 2016-09-07 16:41 | Emergency (ER) | payer OTHER ==
[~2016-09-07] VITALS: Ht 144.8 cm; Wt 57.2 kg
[2016-09-07 16:51] VITALS: BP 136/78
--- NOTE | 2016-09-07 16:52 | ED GENERAL ADULT ---
History of Present Illness General Chief Complaint: Suture Removal/Wound Recheck Stated Complaint: SUTURE REMOVAL Source: patient, old records Exam Limitations: no limitations Vital Signs & Intake/Output Vital Signs & Intake/Output Vital Signs Date Time Temp Pulse Resp B/P Pulse O2 O2 Flow FiO2 Ox Delivery Rate 09/07 1710 Room Air Room Air 09/07 1651 97.8 80 18 136/78 99 Room Air Allergies Coded Allergies: amoxicillin (Mild, RASH 08/29/16) clarithromycin (From BIAXIN) (Mild, RASH 08/29/16) urokinase (Mild, RASH 08/29/16) Reconcile Medications Alendronate Sodium 70 MG TABLET 1 TAB PO QMON OP (Reported) in the morning, at least 30 minutes before the first food, beverage, or medication of the day Calcium Carbonate/Vitamin D3 (Caltrate 600 + D Tablet) 600 MG-800 TABLET 1 TAB PO DAILY SUPPLEMENT (Reported) Calcium Polycarbophil (Fibercon) 625 MG TABLET 625 MG PO D FIBER SUPPLEMENT ( Reported) Cholestyramine (With Sugar) (Cholestyramine Packet) 4 GRAM POWD.PACK 1 Scoopful PO BID LIVER-BILE DUCT (Reported) Clobetasol Propionate 0.05 % CREAM..G. 1 JACQUI TOP D ECZEMA (Reported) apply to affected area(s) Econazole (Econazole Nitrate) 1 % CREAM..G. 1 JACQUI TOP BID ECZEMA (Reported) apply to affected area(s) Escitalopram Oxalate 10 MG TABLET 1 TAB PO DAILY DEPRESSION (Reported) Levothyroxine Sodium (Synthroid) 125 MCG TABLET 0.125 MG PO DAILY AC thyorid Multivitamin/Iron/Folic Acid (Centrum Complete Multivit Tab) 18 MG IRON-400 MCG TABLET 1 TAB PO D SUPPLEMEMT (Reported) Omeprazole 40 MG CAPSULE.DR 1 CAP PO DAILY GERD (Reported) Oxycodone HCl 5 MG TABLET 1 TAB PO 4XDAILY PRN PAIN (Reported) Simvastatin (Simvastatin*) 20 MG TABLET 1 TAB PO QPM HLD (Reported) Triage Nurses Notes Reviewed? yes Onset: Last week Duration: day(s): (10) Timing: no prior history Injury Environment: home Severity: mild HPI: Patient is a 76-year-old female presenting to the emergency Department for staple removal. Patient was seen and evaluated here approximately 10 days ago for a fall at home and had a laceration on the posterior aspect of her scalp. She had yohana placed. She is here to get them removed. Reports it's been healing up well. No complications. Denies headaches. No visual changes. No fevers chills nausea vomiting chest pain or shortness of breath. (AISHA FAUSTIN) Past History Travel History Traveled to [place] past 21 day No Medical History Any Pertinent Medical History? see below for history Neurological: NONE EENT: NONE Cardiovascular: hyperlipidemia Respiratory: asthma, pneumonia Gastrointestinal: GERD Hepatic: elevated transaminases Renal: hydronephrosis Musculoskeletal: osteoporosis, spinal fusion Psychiatric: depression Endocrine: hypothyroidism Blood Disorders: NONE Cancer(s): NONE GRAPE GROWER/Reproductive: NONE History of MRSA: No History of VRE: Yes History of CDIFF: No Surgical History Surgical History: cholecystectomy, hernia repair-incisional, knee replacement (B /L), laminectomy, spinal fusion (lumbar), Lung surgery 01/24/07: HH repair with mesh & [place] fundoplication ORIF L hip status post thoracotomy with decortication status post left hip ORIF Psychosocial History Services at Home Nursing, Physical Therapy What is your primary language Stateless Family History Family History, If Any: MOTHER (onset then). , Age 83; Cause: Colon cancer. FATHER (DM). , Age 79; Cause: Myocardial infarct. Hx Contributory? No (AISHA FAUSTIN) Review of Systems Review of Systems Constitutional: Reports: no symptoms. Comments Review of systems: See HPI, All other systems negative. Constitutional, no chills fever or weight loss HEENT: No visual changes no sore throat no congestion Cardiovascular: No chest pain Skin, no jaundice no rashes Respiratory: No dyspnea cough GI: No nausea no vomiting Muscle skeletal: no back pain, no neck pain, Neurologic: No numbness no confusion NO GARY Psych: No stress anxiety Immunology: No splenectomy or history of AIDS (AISHA FAUSTIN) Physical Exam Physical Exam General Appearance: well developed/nourished, no apparent distress, alert, awake , comfortable Comments: Well-developed well-nourished no apparent distress. HEENT: extraocular motion intact Neck: Supple, no lymphadenopathy Back: Nontender Respiratory: No respiratory distress Extremities: No edema, full range of motion Skin: Well-healing laceration approximately 8-10 cm in length noted over the superior aspect of the scalp. [address] No surrounding erythema or edema. Nontender to palpation. Neuro: Alert and oriented x3 Psych: Mood affect normal, normal memory normal judgment. Core Measures ACS in differential dx? No CVA/TIA Diagnosis: No Severe Sepsis Present: No Septic Shock Present: No (AISHA FAUSTIN) Progress Differential Diagnoses I considered the following diagnoses in my evaluation of the patient: Wound check, staple removal Plan of Care: 10 yohana removed without difficulty. Patient tolerated procedure well. She' ll follow with PCP. Initial ED EKG: none (AISHA FAUSTIN) Departure Departure Time of Disposition: 1651 Disposition: HOME OR SELF CARE Condition: Stable Clinical Impression Primary Impression: Removal of staple Referrals: HECTOR REAGAN,PARTH Gross (PCP/Family) Additional Instructions: Follow-up with your primary care physician calling appointment. Keep wound clean. Return for worsening symptoms or concerns. Departure Forms: Customer Survey General Discharge Information (AISHA FAUSTIN) PA/OVERWEAVER Co-Sign Statement Statement: ED Attending supervision documentation- [X] I saw and evaluated the patient. I have also reviewed all the pertinent lab results and diagnostic results. I agree with the findings and the plan of care as documented in the PA's/OVERWEAVER's documentation. [X] I have reviewed the ED Record and agree with the PA's/OVERWEAVER's documentation. [] Additions or exceptions (if any) to the PAs/OVERWEAVER's note and plan are summarized below: [] (ARAMIS REAGAN,TRACY Gross) Procedures Additional Procedures Additional Procedures: STAPLE REMOVAL Progress: 10 stables removed with staple remover. Patient already procedure well. (AISHA FAUSTIN) Critical Care Note Critical Care Note Critical Care Time: non-applicable (AISHA FAUSTIN)
== END 2016-09-07 17:24 ==
LOC: ERH 16:41
DX: S01.01XA Laceration without foreign body of scalp, initial encounter (principal); W19.XXXA Unspecified fall, initial encounter; Y92.009 Unspecified place in unspecified non-institutional (private) residence as the place of occurrence of the external cause; Y93.9 Activity, unspecified
CPT/HCPCS: 99281